=== PATIENT | male | born 1955 | race Caucasian/White ===

== ENCOUNTER 2022-02-22 11:48 | Inpatient (IN) | payer MEDICAID, SELFPAY ==
[2022-02-22] VITALS (13 sets, daily range): BP systolic 99–157; BP diastolic 42–75; PULSE 84–105; RESP 16–24; TEMP 36.4–37; O2SAT 95–100; BMI 23.8
--- NOTE | 2022-02-22 | ECG_ITS ---
Test Reason : CHEST PAIN Blood Pressure : / mmHG Vent. Rate : 090 BPM Atrial Rate : 090 BPM P-R Int : 150 ms QRS Dur : 090 ms QT Int : 364 ms P-R-T Axes : 082 050 053 degrees QTc Int : 445 ms Normal sinus rhythm with sinus arrhythmia ST & T wave abnormality, consider lateral ischemia Abnormal ECG When compared with ECG of 22-FEB-2022 17:19, Premature atrial complexes are no longer Present Referred By: Benita Ceja Electronically Signed By:ROULA GRIDER MD
--- NOTE | ~2022-02-22 | XR_ITS ---
EXAMINATION: XR CHEST CLINICAL INFORMATION: Leukocytosis. COMPARISON: Chest x-ray 02/23/2018 TECHNIQUE: 2 views of the chest were obtained. FINDINGS: Heart size enlarged. Vascular calcifications of aorta. Vascular stent over the superior mediastinum. No acute airspace disease. No pulmonary vascular congestion, pleural effusion or pneumothorax. XR/XR chest 2V IMPRESSION: No acute abnormality of chest.
--- NOTE | ~2022-02-22 | CT_ITS ---
EXAMINATION: CT HEAD WITHOUT CONTRAST CLINICAL INFORMATION: Altered mental status. COMPARISON: Head CT scan dated 11/26/2017. TECHNIQUE: Contiguous axial imaging was performed from the skull base to vertex without intravenous administration of contrast. Coronal and sagittal reformatted images were obtained. This CT examination was performed using dose optimization techniques as appropriate, variously including the following: *Automated exposure control *Adjustment of mA and/or kV according to patient size (this includes techniques or standardized protocols for targeted exams where dose is matched to indication/reason for exam; i.e. extremities or head) *Use of iterative reconstruction technique DLP: 635 mGy-cm FINDINGS: There is mild to moderate widening of the cortical sulci and associated ventriculomegaly. The lateral ventricles are symmetrical. The third and fourth ventricles are in their normal midline position. The basilar and prepontine cisterns are unremarkable. There is no acute intra or extracerebral abnormality. There is no mass effect or midline shift. Sections through the bony calvarium are unremarkable. The orbits are intact. The paranasal sinuses show mild to moderate mucosal thickening in the left sphenoid sinus. No air-fluid levels. The mastoid air cells are clear. CT/CT head/brain wo con IMPRESSION: 1. No acute intracranial pathology. 2. Mild to moderate mucosal thickening in the left sphenoid sinus was not seen previously.
--- NOTE | 2022-02-22 12:00 | ED_ITS ---
HPI - General Adult General Chief complaint: Altered Mental Status Stated complaint: LEG PAIN PER EMS FROM DIALYSIS Time Seen by Provider: 02/22/22 12:00 Source: EMS Mode of arrival: EMS Limitations: language barrier and altered mental status History of Present Illness HPI narrative: Patient is a 66 year old male presenting to the emergency department today, via EMS, with an altered mental status. EMS states that the patient had just arrived to dialysis when the dialysis staff stated the patient was acting altered. The patient did not undergo dialysis. Patient is Tristanian speaking only and is not r esponding appropriately to verbal stimuli consistently. At times he is able to answer questions but at other times was unable to. Patient is able to follow commands. Patient's paperwork from his care facility lists dementia, parkinsons, CAD, ESRD, and plavix use in his history. Additionally, the patient has a DNR. Related Data Allergies Allergy/AdvReac Type Severity Reaction Status Date / Time Penicillins [PCN] Allergy Intermediate ITCHING Verified 02/22/22 12:14 Review of Systems Constitutional: Constitutional: Reports no additional constitutional complaints, Denies chills, Denies fever(s) and Denies night sweats Eyes: Eyes: Reports no additional eye complaints, Denies blurry vision, Denies change in vision, Denies diplopia, Denies eye discharge, Denies loss of vision and Denies eye pain ENT: Denies dizziness Cardiovascular: Cardiovascular: Reports no additional cardiovascular compl aints, Denies chest pain, Denies lightheadedness, Denies Loss of Consciousness and Denies dyspnea Respiratory: Respiratory: Reports no additional respiratory complaints and Denies dyspnea Gastrointestinal: Gastrointestinal: Reports no additional gastrointestinal complaints, Denies abdominal pain, Denies melena, Denies hematochezia, Denies change in bowel habits and Denies change in stool character Genitourinary: Genitourinary: Reports no additional male genitourinary complaints, Denies hematuria, Denies oliguria, Denies difficulty urinating, Denies dysuria, Denies urinary frequency, Denies urinary hesitancy, Denies urinary incontinence and Denies urinary urgency Musculoskeletal: Musculoskeletal: Reports no additional musculoskeletal complaints, Denies numbness and Denies tingling Neurologic: Denies dizziness, Denies loss of vision, Denies numbness and Denies tingling Comments: altered mental status Psychiatric: Psychiatric: Reports no additional psychiatric complaints Endocrine: Endocrine: Reports no additional endocrine complaints Hematologic/Lymphatic: Hematologic/Lymphatic: Reports no additional hematologic/lymphatic complaints Allergic/Immunologic: Allergic/Immunologic: Reports no additional allergic/immunologic complaints FORMERLY [facility], [facility] Past Medical History Attestation statement: The following information was validated with the patient. Source: old records reviewed Social History Social History Advance Directives: No Advance Directives Information Provided: Yes Physical Exam ED Vital Signs: Vital Signs - 24 hr 02/22/22 12:15 02/22/22 12:36 02/22/22 13:43 Temperature 97.8 F Pulse Rate 96 105 H 97 Respiratory Rate 18 20 17 Blood Pressure 135/59 L 144/64 H 139/71 Pulse Oximetry 100 100 100 02/22/22 16:46 02/22/22 17:01 Temperature 97.9 F 97.5 F Pulse Rate 94 92 Respiratory Rate 18 16 Blood Pressure 134/54 L 135/55 L Pulse Oximetry BMI result Body Mass Index 23.8 Const General: cooperative, no acute distress, alert and awake Nutritional Appearance: well nourished Orientation/consciousness: oriented to person (intermittently) and oriented to place (intermittently) Limitations: no limitations HENMT Head: Yes normal to inspection and Yes atraumatic Ears: hearing grossly normal bilaterally and external ears normal General nose exam: Normal external nose present, no nasal discharge noted and no epistaxis Face and sinus: Yes normal facial exam, No abrasion and No laceration Mouth: Normal oral and palatal mucosa present, no drooling and no muffled voice Eyes General: appearance normal, both eyes and all related structures Periorbital: periorbital findings normal Eyelids: Yes eyelids normal Conjunctivae: conjunctivae normal Pupils: Equal, round and reactive pupils present EOM: EOMs intact bilaterally Neck Neck: Yes normal visual inspection, Yes full ROM and Yes no lymphadenopathy Chest Chest palpation & inspection: normal inspection of the chest Resp Effort & Inspection: normal respiratory effort and able to speak in complete sentences Auscultation: clear to auscultation bilaterally GI Inspection: Yes normal to inspection Skin General skin exam: pallor Neuro General: oriented to person (intermittently), oriented to place (intermittently) and moves all extremities Cranial nerves: Yes Equal, round and reactive pupils present Cognition (Neuro): abnormal cognition (intermittently normal) Motor exam (neuro): 5/5 motor strength present throughout Sensory Exam: Normal double simultaneous stimulation for sensation Coordination: [id number] test normal Pupils: Normal pupillary reactivity/response: bilateral Extrem Other: dialysis fistula present in left arm General: Yes full ROM and Yes capillary refill normal Psych Appearance: grossly normal Mental Status: mental status grossly normal Affect: normal affect Attitude: cooperative Thought process: Normal thought process present Thought content: Normal thought content present Insight: Good insight present (Psych) NIH Stroke Scale Internal: Initial- Upon Arrival Time: 12:00 Level of Consciousness: Not Alert; but arousable by minor stimulation Level of Consciousness Questions: Answers both questions correctly (intermittently) Level of Consciousness Commands: Performs both tasks correctly Best Gaze: Normal Visual: No visual loss Facial Palsy: Normal Motor Arm (Right): No drift Motor Arm (Left): No drift Motor Leg (Right): No drift Motor Leg (Left): No drift Limb Ataxia: Absent Sensory: Normal Best Language: No aphasia Dysarthia: Normal Extinction and Inattention: No abnormality Score: 1 Course Consultations Consultation #1: Spoke to Dr. Hannon, the signal apprentice healthcare network consultant, who recommended the patient be admitted medically and started on nitro paste. He states he believes the patient is suffering myocardial ischemia however, he believes this is secondary to medical reasons/demand. Time: 16:17 Consultation #2: Spoke to Dr. Meza, the GI provider healthcare network consultant, who recommended the patient be admitted and cleared by Cardiology/Medical before she proceeds with an endoscope over the next few days. Time: 16:30 Consultation #3: Spoke to Dr. King who agreed to admission. Time: 17:05 Medical Decision Making [facility] Narrative Medical decision making narrative: Patient is a 66 year old male presenting to the emergency department today with a transient altered mental status. Patient's physical exam showed an individual who was tranisently alert and oriented and pale. Patient's blood work showed a HGB of 5.9, elevated WBC count of 17.4, HCT of 18.9, creatinine of 8.48, BUN of 81, initial lactate of 3.8, 3 hour repeat lactate of 2.9, initial trop of 2762.2, 3 hour repeat troponin of 3990.8, and elevated AST at 41 and elevated alk phos of 149. Patient's urine is pending. Patient's EKG showed ST depression in V4, V5, and V6 with no previous EKG to compare it to. Patient's head CT showed no acute process. Patient's hemeoccult blood was positive. I spoke to the signal apprentice healthcare network consultant, Dr. Hannon, who recommended the patient be admitted medically with nitro paste. Dr. eMza recommended the patient be cleared by cardiology and medically before she performs an endoscope over the next few days. Additionally, she recommends the patient be placed on a PPI drip. Patient was transfused 1 unit of blood. Patient was placed on nitro drip and a protonix drip. I spoke to Dr. Kign who agreed to hospital admission. Patient will need to be dialyzed on an inpatient basis. Differential Diagnosis Differential Diagnosis: AMS, anemia, ESRD, NSTEMI Medical Records Medical records reviewed: Yes I reviewed the patient's medical records. Lab Data Lab results reviewed: Yes I reviewed the patient's lab results. Result diagrams: 02/22/22 12:07 02/22/22 12:07 Labs: Lab Results 02/22/22 02/22/22 02/22/22 Range/Units 12:07 12:07 12:07 WBC 17.4 H (4.8-10.8) X10*3/uL RBC 1.88 L (4.60-5.80) X10*6/uL Hgb 5.9 L* (14.0-18.0) g/dl Hct 18.9 L* (42.0-52.0) % MCV 100.5 H (80.0-98.0) fL MCH 31.4 (27.0-33.0) pg MCHC 31.2 (31.0-36.0) g/dl RDW 15.5 (11.0-16.0) % Plt Count 201 (160-400) X10*3/uL MPV 11.2 (9.4-12.4) fL Immature Gran % (Auto) 0.7 H (0.0-0.4) % Neut % (Auto) 75.7 H (45-73) % Lymph % (Auto) 12.0 L (20-40) % [place] % (Auto) 10.4 (2-11) % Eos % (Auto) 0.9 (0-4) % Baso % (Auto) 0.3 (0-2) % Lymph # (Auto) 2.1 (1.2-4.9) X10*3/uL [place] # (Auto) 1.8 H (0.1-1.2) X10*3/uL Eos # (Auto) 0.2 (0.0-0.4) X10*3/uL Baso # (Auto) 0.1 (0.0-0.2) X10*3/uL Abs Immat Gran (auto) 0.12 H (0.00-0.03) X10*3/uL Absolute Neuts (auto) 13.2 H (2.0-8.3) x10*3/uL Absolute Nucleated RBC 0.000 (0.0-0.012) X10*3/uL Nucleated RBC % (auto) 0.0 (0.0-0.2) /100WBC Smear Tech's Comments VERIFIED PT (9.9-13.0) SEC INR (0.9-1.1) APTT (24.1-38.0) SEC VBG pH (7.32-7.43) VBG pCO2 mmHg VBG pO2 mmHg VBG HCO3 (22-26) mmol/L VBG O2 Saturation % VBG Base Excess mmol/L Sodium 136 (135-145) mmol/L Potassium 4.8 (3.3-5.1) mmol/L Chloride 94 L (96-108) mmol/L Carbon Dioxide 22 (22-29) mmol/L Anion Gap 25 H (12-20) BUN 81 H (9-16) mg/dL Creatinine 8.48 H* (0.5-1.4) mg/dL Estim Creat Clear Calc 6.7 Estimated GFR 6 POC Glucose (60-115) mg/dL Random Glucose 198 H (60-115) mg/dL Lactic Acid (0.5-2.0) mmol/L Lactic Acid F/U @ 2Hr (0.5-2.0) mmol/L Calcium 9.5 (8.4-10.2) mg/dL Total Bilirubin 0.7 (0.0-1.0) mg/dL AST 41 H (5-37) U/L ALT 27 (0-40) U/L Alkaline Phosphatase 149 H (39-117) U/L Ammonia (13-55) umol/L Troponin I High Sens 2762.2 H* (<3.5-35.0) ng/L Total Protein 7.3 (6.5-8.0) g/dL Albumin 4.0 (3.5-5.0) g/dL Stool Occult Blood (NEGATIVE) COVID-19 (AMANDA) (Negative) COVID-19 Clin Com Influenza Type A (SOL) (Negative) Influenza Type B (SOL) (Negative) Influenza A & B Note Blood Type Antibody Screen Crossmatch 02/22/22 02/22/22 02/22/22 Range/Units 12:07 12:07 12:08 WBC (4.8-10.8) X10*3/uL RBC (4.60-5.80) X10*6/uL Hgb (14.0-18.0) g/dl Hct (42.0-52.0) % MCV (80.0-98.0) fL MCH (27.0-33.0) pg MCHC (31.0-36.0) g/dl RDW (11.0-16.0) % Plt Count (160-400) X10*3/uL MPV (9.4-12.4) fL Immature Gran % (Auto) (0.0-0.4) % Neut % (Auto) (45-73) % Lymph % (Auto) (20-40) % [place] % (Auto) (2-11) % Eos % (Auto) (0-4) % Baso % (Auto) (0-2) % Lymph # (Auto) (1.2-4.9) X10*3/uL [place] # (Auto) (0.1-1.2) X10*3/uL Eos # (Auto) (0.0-0.4) X10*3/uL Baso # (Auto) (0.0-0.2) X10*3/uL Abs Immat Gran (auto) (0.00-0.03) X10*3/uL Absolute Neuts (auto) (2.0-8.3) x10*3/uL Absolute Nucleated RBC (0.0-0.012) X10*3/uL Nucleated RBC % (auto) (0.0-0.2) /100WBC Smear Tech's Comments PT (9.9-13.0) SEC INR (0.9-1.1) APTT (24.1-38.0) SEC VBG pH (7.32-7.43) VBG pCO2 mmHg VBG pO2 mmHg VBG HCO3 (22-26) mmol/L VBG O2 Saturation % VBG Base Excess mmol/L Sodium (135-145) mmol/L Potassium (3.3-5.1) mmol/L Chloride (96-108) mmol/L Carbon Dioxide (22-29) mmol/L Anion Gap (12-20) BUN (9-16) mg/dL Creatinine (0.5-1.4) mg/dL Estim Creat Clear Calc Estimated GFR POC Glucose 194 H (60-115) mg/dL Random Glucose (60-115) mg/dL Lactic Acid (0.5-2.0) mmol/L Lactic Acid F/U @ 2Hr (0.5-2.0) mmol/L Calcium (8.4-10.2) mg/dL Total Bilirubin (0.0-1.0) mg/dL AST (5-37) U/L ALT (0-40) U/L Alkaline Phosphatase (39-117) U/L Ammonia (13-55) umol/L Troponin I High Sens (<3.5-35.0) ng/L Total Protein (6.5-8.0) g/dL Albumin (3.5-5.0) g/dL Stool Occult Blood (NEGATIVE) COVID-19 (AMANDA) Negative (Negative) COVID-19 Clin Com See Note Influenza Type A (SOL) Negative (Negative) Influenza Type B (SOL) Negative (Negative) Influenza A & B Note See Note Blood Type Antibody Screen Crossmatch 02/22/22 02/22/22 02/22/22 Range/Units 12:11 12:14 15:35 WBC (4.8-10.8) X10*3/uL RBC (4.60-5.80) X10*6/uL Hgb (14.0-18.0) g/dl Hct (42.0-52.0) % MCV (80.0-98.0) fL MCH (27.0-33.0) pg MCHC (31.0-36.0) g/dl RDW (11.0-16.0) % Plt Count (160-400) X10*3/uL MPV (9.4-12.4) fL Immature Gran % (Auto) (0.0-0.4) % Neut % (Auto) (45-73) % Lymph % (Auto) (20-40) % [place] % (Auto) (2-11) % Eos % (Auto) (0-4) % Baso % (Auto) (0-2) % Lymph # (Auto) (1.2-4.9) X10*3/uL [place] # (Auto) (0.1-1.2) X10*3/uL Eos # (Auto) (0.0-0.4) X10*3/uL Baso # (Auto) (0.0-0.2) X10*3/uL Abs Immat Gran (auto) (0.00-0.03) X10*3/uL Absolute Neuts (auto) (2.0-8.3) x10*3/uL Absolute Nucleated RBC (0.0-0.012) X10*3/uL Nucleated RBC % (auto) (0.0-0.2) /100WBC Smear Tech's Comments PT 10.7 (9.9-13.0) SEC INR 0.9 (0.9-1.1) APTT 33.5 (24.1-38.0) SEC VBG pH 7.30 L (7.32-7.43) VBG pCO2 57 mmHg VBG pO2 70 mmHg VBG HCO3 28 H (22-26) mmol/L VBG O2 Saturation 88.0 % VBG Base Excess 1.7 mmol/L Sodium (135-145) mmol/L Potassium (3.3-5.1) mmol/L Chloride (96-108) mmol/L Carbon Dioxide (22-29) mmol/L Anion Gap (12-20) BUN (9-16) mg/dL Creatinine (0.5-1.4) mg/dL Estim Creat Clear Calc Estimated GFR POC Glucose (60-115) mg/dL Random Glucose (60-115) mg/dL Lactic Acid 3.8 H* (0.5-2.0) mmol/L Lactic Acid F/U @ 2Hr (0.5-2.0) mmol/L Calcium (8.4-10.2) mg/dL Total Bilirubin (0.0-1.0) mg/dL AST (5-37) U/L ALT (0-40) U/L Alkaline Phosphatase (39-117) U/L Ammonia (13-55) umol/L Troponin I High Sens (<3.5-35.0) ng/L Total Protein (6.5-8.0) g/dL Albumin (3.5-5.0) g/dL Stool Occult Blood (NEGATIVE) COVID-19 (AMANDA) (Negative) COVID-19 Clin Com Influenza Type A (SOL) (Negative) Influenza Type B (SOL) (Negative) Influenza A & B Note Blood Type Antibody Screen Crossmatch 02/22/22 02/22/22 02/22/22 Range/Units 15:35 15:35 15:35 WBC (4.8-10.8) X10*3/uL RBC (4.60-5.80) X10*6/uL Hgb (14.0-18.0) g/dl Hct (42.0-52.0) % MCV (80.0-98.0) fL MCH (27.0-33.0) pg MCHC (31.0-36.0) g/dl RDW (11.0-16.0) % Plt Count (160-400) X10*3/uL MPV (9.4-12.4) fL Immature Gran % (Auto) (0.0-0.4) % Neut % (Auto) (45-73) % Lymph % (Auto) (20-40) % [place] % (Auto) (2-11) % Eos % (Auto) (0-4) % Baso % (Auto) (0-2) % Lymph # (Auto) (1.2-4.9) X10*3/uL [place] # (Auto) (0.1-1.2) X10*3/uL Eos # (Auto) (0.0-0.4) X10*3/uL Baso # (Auto) (0.0-0.2) X10*3/uL Abs Immat Gran (auto) (0.00-0.03) X10*3/uL Absolute Neuts (auto) (2.0-8.3) x10*3/uL Absolute Nucleated RBC (0.0-0.012) X10*3/uL Nucleated RBC % (auto) (0.0-0.2) /100WBC Smear Tech's Comments PT (9.9-13.0) SEC INR (0.9-1.1) APTT (24.1-38.0) SEC VBG pH (7.32-7.43) VBG pCO2 mmHg VBG pO2 mmHg VBG HCO3 (22-26) mmol/L VBG O2 Saturation % VBG Base Excess mmol/L Sodium (135-145) mmol/L Potassium (3.3-5.1) mmol/L Chloride (96-108) mmol/L Carbon Dioxide (22-29) mmol/L Anion Gap (12-20) BUN (9-16) mg/dL Creatinine (0.5-1.4) mg/dL Estim Creat Clear Calc Estimated GFR POC Glucose (60-115) mg/dL Random Glucose (60-115) mg/dL Lactic Acid (0.5-2.0) mmol/L Lactic Acid F/U @ 2Hr (0.5-2.0) mmol/L Calcium (8.4-10.2) mg/dL Total Bilirubin (0.0-1.0) mg/dL AST (5-37) U/L ALT (0-40) U/L Alkaline Phosphatase (39-117) U/L Ammonia 28 (13-55) umol/L Troponin I High Sens 3990.8 H* (<3.5-35.0) ng/L Total Protein (6.5-8.0) g/dL Albumin (3.5-5.0) g/dL Stool Occult Blood (NEGATIVE) COVID-19 (AMANDA) (Negative) COVID-19 Clin Com Influenza Type A (SOL) (Negative) Influenza Type B (SOL) (Negative) Influenza A & B Note Blood Type O Positive Antibody Screen NEGATIVE Crossmatch See Detail 02/22/22 02/22/22 Range/Units 15:35 15:50 WBC (4.8-10.8) X10*3/uL RBC (4.60-5.80) X10*6/uL Hgb (14.0-18.0) g/dl Hct (42.0-52.0) % MCV (80.0-98.0) fL MCH (27.0-33.0) pg MCHC (31.0-36.0) g/dl RDW (11.0-16.0) % Plt Count (160-400) X10*3/uL MPV (9.4-12.4) fL Immature Gran % (Auto) (0.0-0.4) % Neut % (Auto) (45-73) % Lymph % (Auto) (20-40) % [place] % (Auto) (2-11) % Eos % (Auto) (0-4) % Baso % (Auto) (0-2) % Lymph # (Auto) (1.2-4.9) X10*3/uL [place] # (Auto) (0.1-1.2) X10*3/uL Eos # (Auto) (0.0-0.4) X10*3/uL Baso # (Auto) (0.0-0.2) X10*3/uL Abs Immat Gran (auto) (0.00-0.03) X10*3/uL Absolute Neuts (auto) (2.0-8.3) x10*3/uL Absolute Nucleated RBC (0.0-0.012) X10*3/uL Nucleated RBC % (auto) (0.0-0.2) /100WBC Smear Tech's Comments PT (9.9-13.0) SEC INR (0.9-1.1) APTT (24.1-38.0) SEC VBG pH (7.32-7.43) VBG pCO2 mmHg VBG pO2 mmHg VBG HCO3 (22-26) mmol/L VBG O2 Saturation % VBG Base Excess mmol/L Sodium (135-145) mmol/L Potassium (3.3-5.1) mmol/L Chloride (96-108) mmol/L Carbon Dioxide (22-29) mmol/L Anion Gap (12-20) BUN (9-16) mg/dL Creatinine (0.5-1.4) mg/dL Estim Creat Clear Calc Estimated GFR POC Glucose (60-115) mg/dL Random Glucose (60-115) mg/dL Lactic Acid (0.5-2.0) mmol/L Lactic Acid F/U @ 2Hr 2.9 H* (0.5-2.0) mmol/L Calcium (8.4-10.2) mg/dL Total Bilirubin (0.0-1.0) mg/dL AST (5-37) U/L ALT (0-40) U/L Alkaline Phosphatase (39-117) U/L Ammonia (13-55) umol/L Troponin I High Sens (<3.5-35.0) ng/L Total Protein (6.5-8.0) g/dL Albumin (3.5-5.0) g/dL Stool Occult Blood POSITIVE (NEGATIVE) COVID-19 (AMANDA) (Negative) COVID-19 Clin Com Influenza Type A (SOL) (Negative) Influenza Type B (SOL) (Negative) Influenza A & B Note Blood Type Antibody Screen Crossmatch Imaging Data CT scan - head: Attestation: I personally reviewed and interpreted this imaging study as follows: Radiologist's impression: EXAMINATION: CT HEAD WITHOUT CONTRAST CLINICAL INFORMATION: Altered mental status.? COMPARISON: Head CT scan dated 11/26/2017. TECHNIQUE: Contiguous axial imaging was performed from the skull base to vertex without intravenous administration of contrast. Coronal and sagittal reformatted images were obtained. This CT examination was performed using dose optimization techniques as appropriate, variously including the following: *Automated exposure control *Adjustment of mA and/or kV according to patient size (this includes techniques or standardized protocols for targeted exams where dose is matched to indication/reason for exam; i.e. extremities or head) *Use of iterative reconstruction technique DLP: 635 mGy-cm FINDINGS: There is mild to moderate widening of the cortical sulci and associated ventriculomegaly. The lateral ventricles are symmetrical. The third and fourth ventricles are in their normal midline position. The basilar and prepontine cisterns are unremarkable. There is no acute intra or extracerebral abnormality. There is no mass effect or midline shift. Sections through the bony calvarium are unremarkable. The orbits are intact. The paranasal sinuses show mild to moderate mucosal thickening in the left sphenoid sinus. No air-fluid levels. The mastoid air cells are clear. CT/CT head/brain wo con IMPRESSION: 1. No acute intracranial pathology. 2. Mild to moderate mucosal thickening in the left sphenoid sinus was not seen previously. Dictated By: Sky Ellis MD Signed By: Electronically signed by Sky Ellis MD 02/22/22 8749 ECG Data Attestation: I personally reviewed and interpreted this ECG as follows: Prior ECG tracings: not available for review Interpretation: Vent. Rate: 095 BPM ? ? Atrial Rate: 095 BPM P-R Int: 116 ms? QRS Dur: 096 ms QT Int: 376 ms ? ? ? P-R-T Axes: 078 050 113 degrees QTc Int: 472 ms ? Sinus rhythm with marked sinus arrhythmia ST & T wave abnormality, consider lateral ischemia Prolonged QT Abnormal ECG 02/22/22 4764 Discharge Plan Discharge Clinical Impression: ESRD (end stage renal disease), Anemia, Acute upper GI bleed, Elevated troponin Patient Disposition: Admitted As Inpatient Print Language: Tristanian
--- NOTE | 2022-02-22 12:00 | ECG_ITS ---
Test Reason : AMS Blood Pressure : / mmHG Vent. Rate : 095 BPM Atrial Rate : 095 BPM P-R Int : 116 ms QRS Dur : 096 ms QT Int : 376 ms P-R-T Axes : 078 050 113 degrees QTc Int : 472 ms Sinus rhythm with Premature atrial complexes ST & T wave abnormality, consider lateral ischemia Prolonged QT Abnormal ECG When compared to the previous EKG of ST more depressed Lateral leads Referred By: Conchis Peguero Electronically Signed By:ROULA GRIDER MD
[2022-02-22 12:16] LABS: Basophils Absolute Auto 0.1 X10*3/uL (0.0-0.2); Basophils Percent Auto 0.3 % (0-2); Eosinophils Absolute Auto 0.2 X10*3/uL (0.0-0.4); Eosinophils Percent Auto 0.9 % (0-4); Imm Gran Abs Auto 0.12 X10*3/uL (0.00-0.03); Imm Gran Pct Auto 0.7 % (0.0-0.4); Lymphocytes Absolute Auto 2.1 X10*3/uL (1.2-4.9); MANUAL DIFF FLAG SCAN; Mean Corpuscular HGB Conc 31.2 g/dl (31.0-36.0); Mean Corpuscular Hemoglobin 31.4 pg (27.0-33.0); Mean Corpuscular Volume 100.5 fL (80.0-98.0); Mean Platelet Volume 11.2 fL (9.4-12.4); Monocytes Absolute Auto 1.8 X10*3/uL (0.1-1.2); Monocytes Percent Auto 10.4 % (2-11); Neutrophils Absolute Auto 13.2 x10*3/uL (2.0-8.3); Neutrophils Percent Auto 75.7 % (45-73); Platelet Count 201 X10*3/uL (160-400); Red Blood Count 1.88 X10*6/uL (4.60-5.80); Red Cell Distribution Width 15.5 % (11.0-16.0); SCAN SMEAR FLAG 1; White Blood Count 17.4 X10*3/uL (4.8-10.8)
[2022-02-22 12:17] LABS: VBG Base Excess 1.7 mmol/L; VBG HCO3 28 mmol/L (22-26); VBG pCO2 57 mmHg; VBG pO2 70 mmHg
[2022-02-22 12:18] LABS: Hemoglobin 5.9 g/dl (14.0-18.0)
[2022-02-22 12:19] LABS: Hematocrit 18.9 % (42.0-52.0); Venous Blood Gas Refer to POC result
[2022-02-22 12:25] LABS: Glucose, Whole Blood 194 mg/dL (60-115)
[2022-02-22 12:32] LABS: Lactic Acid 3.8 mmol/L (0.5-2.0)
[2022-02-22 12:34] LABS: SLIDE REVIEW VERIFIED
[2022-02-22 12:37] LABS: Alanine Aminotransferase 27 U/L (0-40); Alkaline Phosphatase 149 U/L (39-117); Anion Gap 25 (12-20); Aspartate Amino Transferase 41 U/L (5-37); Bilirubin Total 0.7 mg/dL (0.0-1.0); Blood Urea Nitrogen 81 mg/dL (9-16); Calcium 9.5 mg/dL (8.4-10.2); Carbon Dioxide 22 mmol/L (22-29); Chloride 94 mmol/L (96-108); Glucose Random 198 mg/dL (60-115); Potassium 4.8 mmol/L (3.3-5.1); Sodium 136 mmol/L (135-145); Total Protein 7.3 g/dL (6.5-8.0)
[2022-02-22 12:40] LABS: Influenza A Negative (Negative); Influenza B2 Negative (Negative)
[2022-02-22 12:41] LABS: COVID-19 Test Negative (Negative); Creatinine Clr Calc Pharmacy 6.7; Estimated Glomerular Filt Rate 6; IDNOW Serial# 16C4AD1C
[2022-02-22 14:17] LABS: Reflex Lactate? Lactic Acid Added
[2022-02-22 15:49] LABS: INTERNATIONAL NORM RATIO 0.9 (0.9-1.1); Prothrombin Time 10.7 SEC (9.9-13.0)
[2022-02-22 15:50] LABS: Ammonia 28 umol/L (13-55)
[2022-02-22 15:52] LABS: Partial Thromboplastin Time 33.5 SEC (24.1-38.0)
[2022-02-22 15:56] LABS: ~Lactic Acid-LAB USE ONLY 2.9 mmol/L (0.5-2.0)
[2022-02-22 15:56] LABS: OBS Int Ctl Valid YES; OBS1 POSITIVE (NEGATIVE)
--- NOTE | 2022-02-22 17:20 | ECG_ITS ---
Test Reason : CP Blood Pressure : / mmHG Vent. Rate : 094 BPM Atrial Rate : 094 BPM P-R Int : 116 ms QRS Dur : 092 ms QT Int : 372 ms P-R-T Axes : 059 033 013 degrees QTc Int : 465 ms Sinus rhythm with Premature atrial complexes ST & T wave abnormality, consider lateral ischemia Prolonged QT Abnormal ECG When compared with ECG of 22-FEB-2022 11:59, ST less depressed in Lateral leads T wave inversion less evident in Lateral leads Referred By: Generic ED Physician Electronically Signed By:ROULA GRIDER MD
[2022-02-22] MEDS: Nitroglycerin 2 % Oint 1 GM Packet 0.5 INCH TRANSDERMA (17:27)
--- NOTE | 2022-02-22 17:29 | PC.NURSE ---
pt had made a vague report of chest discomfort which he localized to r shoulder area. pt indicated this via his son but is unable to give specifics related to this pain. Pt has no rash or urticaria, ls remain clear and = and he is in n[facility] on led 2 pac [place] made aware, repeat ekg has been reviewed and nitro has been placed as ordered.
[2022-02-22 17:38] LABS: Reflex Lactate? 2 Y
--- NOTE | 2022-02-22 17:51 | PM.GICN ---
History of Present Illness Data of Consult Service Date: 02/22/22 Requesting physician: Conchis Peguero Primary Care Provider: Unknown Physician HPI Reason for consult: severe anemia, heme positive stools 66 year old Filipino-speaking male with dementia, parkinsons, CAD, ESRD on HD, and plavix use sent to [facility] ER, via EMS, with an altered mental status. EMS stated that the patient had just arrived to dialysis when the dialysis staff stated the patient was acting altered. The patient did not undergo dialysis. Patient is Filipino speaking only and was not responding appropriately to verbal stimuli consistently. Per ER staff pt is able to answer questions intermittently and was able to follow commands. Patient is a DNR. Unable to obtain a meaningful hx from the patient since he has dementia Lab in the ER showed H & H of 5.9 and 18.9 (decreased from 11.3 & 34 in 2019) IMAGING STUDIES: 02/22/[address] SCAN SHOWED: 1. No acute intracranial pathology. 2. Mild to moderate mucosal thickening in the left sphenoid sinus was not seen previously. PAST EGD/COLONOSCOPY: May 2015 PATIENT WAS HOSPITALIZED WITH ANEMIA AND HAD AN UPPER ENDOSCOPY AND COLONOSCOPY BY DR. DUMONT: EGD showed a deep antral ulcer Colonoscopy was normal Review of Systems Constitutional: Constitutional: Reports no additional constitutional complaints, Denies chills, Denies fever(s) and Denies night sweats Eyes: Eyes: Reports no additional eye complaints, Denies blurry vision, Denies change in vision, Denies diplopia, Denies eye discharge, Denies loss of vision and Denies eye pain ENT: Denies dizziness Cardiovascular: Cardiovascular: Reports no additional cardiovascular complaints, Denies chest pain, Denies lightheadedness, Denies Loss of Consciousness and Denies dyspnea Respiratory: Respiratory: Reports no additional respiratory complaints and Denies dyspnea Gastrointestinal: Gastrointestinal: Reports no additional gastrointestinal complaints, Denies abdominal pain, Denies melena, Denies hematochezia, Denies change in bowel habits and Denies change in stool character Genitourinary: Genitourinary: Reports no additional male genitourinary complaints, Denies hematuria, Denies oliguria, Denies difficulty urinating, Denies dysuria, Denies urinary frequency, Denies urinary hesitancy, Denies urinary incontinence and Denies urinary urgency Musculoskeletal: Musculoskeletal: Reports no additional musculoskeletal complaints, Denies numbness and Denies tingling Neurologic: Denies dizziness, Denies loss of vision, Denies numbness and Denies tingling Comments: altered mental status Psychiatric: Psychiatric: Reports no additional psychiatric complaints Endocrine: Endocrine: Reports no additional endocrine complaints Hematologic/Lymphatic: Hematologic/Lymphatic: Reports no additional hematologic/lymphatic complaints Allergic/Immunologic: Allergic/Immunologic: Reports no additional allergic/immunologic complaints [facility] Social History Social History Household Members: Unknown / Unable to assess Housing: Unknown / Unable to assess Do you presently have visiting nurse or other home services: No (unknown) Unable to assess alcohol history related to: Unknown Alcohol intake: former Patient Tobacco Use Status: Former Tobacco user Current occupational status: disabled Meds Allergies Allergy/AdvReac Type Severity Reaction Status Date / Time Penicillins [PCN] Allergy Intermediate ITCHING Verified 02/22/22 12:14 Active Medications: Current Medications Pantoprazole Sodium 80 mg/ (Sodium Chloride) 100 mls @ 10 mls/hr IV .Q10H [facility] Pharmacy Consult (Consult Rx Perform Med Rec) 1 each MISCELLANE ONCE PRN PRN Reason: Consult order Home Medications Medication Instructions Recorded Confirmed Last Taken Type atorvastatin 80 mg tablet 80 mg PO BEDTIME 02/22/22 02/22/22 Unknown History bisacodyl 5 mg tablet,delayed 1 tab PO DAILY PRN 02/22/22 02/22/22 Unknown History release (Dulcolax (bisacodyl)) cholecalciferol (vitamin D3) 50 50 mcg PO DAILY 02/22/22 02/22/22 Unknown History mcg (2,000 unit) tablet insulin glargine 100 unit/mL (3 10 unit SUBCUT BEDTIME 02/22/22 02/22/22 Unknown History mL) subcutaneous pen (Lantus Solostar U-100 Insulin) insulin lispro 100 unit/mL 1 sliding scale dose SUBCUT 02/22/22 02/22/22 Unknown History subcutaneous solution (Humalog USEASDIRECTD U-100 Insulin) isosorbide dinitrate 10 mg tablet 10 mg PO TID 02/22/22 02/22/22 Unknown History lactulose 10 gram/15 mL oral 30 ml PO BID 02/22/22 02/22/22 Unknown History solution (Enulose) paroxetine HCl 20 mg tablet (Paxil) 20 mg PO DAILY 02/22/22 02/22/22 Unknown History risperidone 0.25 mg tablet 0.25 mg PO BEDTIME 02/22/22 02/22/22 Unknown History sevelamer carbonate 2.4 gram oral 2.4 g PO TID 02/22/22 02/22/22 Unknown History powder packet (Renvela) trazodone 50 mg tablet 50 mg PO BEDTIME 02/22/22 02/22/22 Unknown History Physical Exam Vital Signs: Vital Signs: Last Vital Signs Temp 97.5 F 02/22/22 17:01 Pulse 94 02/22/22 17:31 Resp 16 02/22/22 17:31 BP 127/63 02/22/22 17:31 Pulse Ox 100 02/22/22 17:31 BMI result Body Mass Index 23.8 Const: General: no acute distress and ill appearing Nutritional Appearance: average body habitus Orientation/consciousness: patient oriented x3 Limitations: altered mental status and other limitations (dementia) HEENT: Head: Yes normal to inspection Ears: hearing grossly normal bilaterally Mouth: Normal oral and palatal mucosa present Eyes: Sclerae: sclerae normal Pupils: Equal, round and reactive pupils present Neck: Neck: Yes normal visual inspection Chest: Chest palpation & inspection: normal inspection of the chest Resp: Effort & Inspection: normal respiratory effort Auscultation: clear to auscultation bilaterally Cardio: Palpation: normal PMI Rate: regular rate Rhythm: regular rhythm Heart sounds: S1 normal heart sound present, S2 normal heart sound present and no murmurs GI: Palpation (GI): Soft to palpation, nontender and No hepatosplenomegaly present Auscultation: normal bowel sounds Rectal Exam - Male: Yes deferred Skin: General skin exam: no rashes or lesions noted Neuro: General: patient oriented x3, gait normal and moves all extremities Cranial nerves: Yes Equal, round and reactive pupils present Psych: Appearance: grossly normal Mental Status: mental status grossly normal Results Labs CBC & Chem 7: 02/26/22 06:27 02/26/22 06:27 Labs: Short CBC 02/22/22 Range/Units 12:07 WBC 17.4 H (4.8-10.8) X10*3/uL Hgb 5.9 L* (14.0-18.0) g/dl Hct 18.9 L* (42.0-52.0) % Plt Count 201 (160-400) X10*3/uL BMP 02/22/22 12:07 Sodium 136 Potassium 4.8 Chloride 94 L Carbon Dioxide 22 BUN 81 H Creatinine 8.48 H* Calcium 9.5 Liver Function 02/22/22 Range/Units 12:07 Total Bilirubin 0.7 (0.0-1.0) mg/dL AST 41 H (5-37) U/L ALT 27 (0-40) U/L Alkaline Phosphatase 149 H (39-117) U/L Albumin 4.0 (3.5-5.0) g/dL Assessment and Plan (1) Anemia: Status: Acute (2) Heme + stool: Status: Resolved Plan 66 year old Filipino-speaking male with dementia, parkinsons, CAD, ESRD on HD, and plavix use sent to [facility] ER, via EMS, with an altered mental status. Lab in the ER showed H & H of 5.9 and 18.9 (decreased from 11.3 & 34 in 2019) Pt is hemodynamically stable and per ER provider pt had brown heme positive stools suggestive of acute on chronic anemia without overt GI bleeding Past EGD in 2015 showed a deep gastric ulcer, Colonoscopy was normal Pt noted to have elevated Troponin levels and diagnosed with NSTEMI RECOMMENDATIONS: 1. Agree with transfusion of 1 U PRBC and IV PPI 2. Repeat CBC 2 hrs post transfusion and 2nd unit can be transfused during HD if Hct is < 25% 3. Needs hemodialysis 4. Pt is high risk for EGD given NSTEMI. Advise conservative treatment with PPI for suspected PUD given dementia and multiple medical issues and acute MD. ADDENDUM: Pt was seen by Dr Hannon, Cardiology, during hospitalization: NSTEMI secondary to severe anemia and other acute medical illness including UTI.? Most likely cause for his encephalopathy as including metabolic abnormality due to missing his dialysis.? He has no cardiac symptoms to report although this is very difficult to assess.? Definitely has evidence of EKG changes suggestive ischemia.? However given his inability to understand and significant cognitive dysfunction not sure if any further aggressive measures would be taken.? This needs to be discussed with his family.? I would treat him with medical therapy with metoprolol and statins.? Cannot be on aspirin anticoagulant due to his recent GI bleed and severe anemia.? Continue aggressive control of blood pressure.? Will prognosis an long run is poor given his significant medical issues and recent non-STEMI.? Will sign of the case.? Please feel free to contact us thank you Procedures Date of Service Date of Service: 02/22/22
[2022-02-22] MEDS: Pantoprazole Sodium 80 MG in 0.9 % Sodium Chloride 80 ML 10 MG IV (18:42)
--- NOTE | 2022-02-22 19:54 | PHA.MEDREC ---
Pharmacy Consult ? Medication Reconciliation Pharmacy has completed the medication reconciliation. INTAKE INCORRECT. PATIENT IS FROM [facility]. [phone]
[2022-02-22 22:19] LABS: ~Lactic Acid-LAB USE ONLY 2.2 mmol/L (0.5-2.0)
[2022-02-22 22:33] LABS: ABG Base Excess -2.8 mmol/L; ABG HCO3 21 mmol/L (22-26); ABG pCO2 35 mmHg (32-45); ABG pH 7.39 (7.35-7.45); ABG pO2 98 mmHg (83-108)
--- NOTE | 2022-02-22 22:47 | PC.NURSE ---
Patient's Troponin came back at 5968.3 which has increased from earlier. Hospitalist aware and has ordered an EKG
--- NOTE | 2022-02-22 22:54 | PM.IMHP ---
History of Present Illness Date of Service: 02/22/22 Chief Complaint: AMS 66-year-old male with a documented history of ESRD on dialysis, who comes in via EMS from dialysis with altered mentation. Patient is completely altered, somnolent, not responding to questions appropriately . according to family Who gave report to previous physician,patient's baseline is usually altered foot this is worse than usual. I am unable to get much history from patient himself. information gathered from ED notes. It appears that patient had just arrived to dialysis 1 dialysis staff stated the patient was acting altered. Patient did not receive dialysis and he was sent to the hospital. according to information obtained in the chart, patient has history of stomach ulcers. On arrival vitals patient found to have temp of 97.8 degrees, heart rate of 105, blood pressure stable. Labs are significant for WBC count of 17.4, hemoglobin of 5.9 hematocrit of 18.9, most recent in November were 11.3 and 34 respectively, prothrombin of 10.4, pH of 7.30, sodium 136, creatinine of 8.48, lactic acid of 3.8, troponin of 2760 to increase to 3990, UA that is positive for leukocyte Estrace and WBC head CT shows no acute intracranial pathology chest x-ray negative I am unable to obtain past medical history due to mental status Review of Systems Review of Systems: Yes Unobtainable due to mental condition and Unobtainable due to mental status PMFSH Social History Alcohol intake: former Patient Tobacco Use Status: Former Tobacco user Use of substances other than those prescribed or required for medical reasons: No Advance Directives: No Advance Directives Information Provided: Yes Meds Allergies Allergy/AdvReac Type Severity Reaction Status Date / Time Penicillins [PCN] Allergy Intermediate ITCHING Verified 02/22/22 12:14 Active Medications: Current Medications Acetaminophen (Acetaminophen 325 Mg Tablet) 650 mg PO Q6H PRN PRN Reason: Pain, Mild (Pain Scale 1-3) Docusate Sodium (Docusate Sodium 100 Mg Capsule) 100 mg PO DAILY PRN PRN Reason: Constipation Pantoprazole Sodium 80 mg/ (Sodium Chloride) 100 mls @ 10 mls/hr IV .Q10H [facility] Last Admin: 02/22/22 18:42 Dose: 8 mg/hr, 10 mls/hr Documented by: Ondansetron HCl (Ondansetron Hcl 4 Mg/2 Ml Vial) 4 mg IVPUSH Q8H PRN PRN Reason: Nausea and Vomiting Pantoprazole Sodium (Pantoprazole Sodium 40 Mg/10 Ml Vial) 40 mg IVPUSH BID@0630,1630 [facility] Pharmacy Consult (Consult Rx Perform Med Rec) 1 each MISCELLANE ONCE PRN PRN Reason: Consult order Sodium Chloride (0.9 % Sodium Chloride Flush 3 Ml Syringe) 3 ml IVFLUSH QSHIFT [facility] Home Medications Medication Instructions Recorded Confirmed Last Taken Type aspirin 81 mg chewable tablet 81 mg PO DAILY 02/22/22 02/22/22 Unknown History atorvastatin 80 mg tablet 80 mg PO BEDTIME 02/22/22 02/22/22 Unknown History bisacodyl 5 mg tablet,delayed 1 tab PO DAILY PRN 02/22/22 02/22/22 Unknown History release (Dulcolax (bisacodyl)) cholecalciferol (vitamin D3) 50 50 mcg PO DAILY 02/22/22 02/22/22 Unknown History mcg (2,000 unit) tablet clopidogrel 75 mg tablet 75 mg PO SUMOWEFR 02/22/22 02/22/22 Unknown History insulin glargine 100 unit/mL (3 10 unit SUBCUT BEDTIME 02/22/22 02/22/22 Unknown History mL) subcutaneous pen (Lantus Solostar U-100 Insulin) insulin lispro 100 unit/mL 1 sliding scale dose SUBCUT 02/22/22 02/22/22 Unknown History subcutaneous solution (Humalog USEASDIRECTD U-100 Insulin) isosorbide dinitrate 10 mg tablet 10 mg PO TID 02/22/22 02/22/22 Unknown History lactulose 10 gram/15 mL oral 30 ml PO BID 02/22/22 02/22/22 Unknown History solution (Enulose) paroxetine HCl 20 mg tablet (Paxil) 20 mg PO DAILY 02/22/22 02/22/22 Unknown History risperidone 0.25 mg tablet 0.25 mg PO BEDTIME 02/22/22 02/22/22 Unknown History sevelamer carbonate 2.4 gram oral 2.4 g PO TID 02/22/22 02/22/22 Unknown History powder packet (Renvela) trazodone 50 mg tablet 50 mg PO BEDTIME 02/22/22 02/22/22 Unknown History Physical Exam Vital Signs and Narrative: Vital Signs: Last Vital Signs Temp 98.6 F 02/22/22 21:34 Pulse 89 02/22/22 21:34 Resp 18 02/22/22 21:34 BP 112/43 L 02/22/22 21:34 Pulse Ox 100 02/22/22 21:31 BMI result Body Mass Index 23.8 Const: Other: somnolent, arousable to painful stimuli, does not answer questions even with the help of lang interpreter General: no acute distress Eyes: General: appearance normal, both eyes and all related structures Pupils: Equal, round and reactive pupils present Resp: Effort & Inspection: normal respiratory effort Auscultation: clear to auscultation bilaterally Cardio: Rate: regular rate Rhythm: regular rhythm GI: Palpation (GI): Soft to palpation Auscultation: normal bowel sounds Skin: General skin exam: no rashes or lesions noted Neuro: Cranial nerves: Yes Equal, round and reactive pupils present Extrem: General: Yes normal to inspection and Yes no pedal edema Results Labs CBC and Chem 7: 02/22/22 12:07 02/22/22 12:07 Labs: Laboratory Results - last 24 hr 02/22/22 02/22/22 02/22/22 12:07 12:07 12:07 MCV 100.5 H MCH 31.4 MCHC 31.2 RDW 15.5 Plt Count 201 MPV 11.2 Immature Gran % (Auto) 0.7 H Neut % (Auto) 75.7 H Lymph % (Auto) 12.0 L [place] % (Auto) 10.4 Eos % (Auto) 0.9 Baso % (Auto) 0.3 Lymph # (Auto) 2.1 [place] # (Auto) 1.8 H Eos # (Auto) 0.2 Baso # (Auto) 0.1 Abs Immat Gran (auto) 0.12 H Absolute Neuts (auto) 13.2 H Absolute Nucleated RBC 0.000 Nucleated RBC % (auto) 0.0 Smear Tech's Comments VERIFIED PT INR APTT O2 Saturation ABG pH at Pt Temp ABG pCO2 at Pt Temp ABG pO2 at Pt Temp ABG HCO3 ABG Base Excess (Actual) VBG pH VBG pCO2 VBG pO2 VBG HCO3 VBG O2 Saturation VBG Base Excess Anion Gap 25 H Estim Creat Clear Calc 6.7 Estimated GFR 6 POC Glucose Random Glucose 198 H Lactic Acid Lactic Acid F/U @ 2Hr Lactic Acid F/U @ 4Hr Calcium 9.5 Total Bilirubin 0.7 AST 41 H ALT 27 Alkaline Phosphatase 149 H Ammonia Troponin I High Sens 2762.2 H* Total Protein 7.3 Albumin 4.0 Stool Occult Blood COVID-19 (AMANDA) COVID-19 Clin Com Influenza Type A (SOL) Influenza Type B (SOL) Influenza A & B Note Blood Type Antibody Screen Crossmatch 02/22/22 02/22/22 02/22/22 12:07 12:07 12:08 MCV MCH MCHC RDW Plt Count MPV Immature Gran % (Auto) Neut % (Auto) Lymph % (Auto) [place] % (Auto) Eos % (Auto) Baso % (Auto) Lymph # (Auto) [place] # (Auto) Eos # (Auto) Baso # (Auto) Abs Immat Gran (auto) Absolute Neuts (auto) Absolute Nucleated RBC Nucleated RBC % (auto) Smear Tech's Comments PT INR APTT O2 Saturation ABG pH at Pt Temp ABG pCO2 at Pt Temp ABG pO2 at Pt Temp ABG HCO3 ABG Base Excess (Actual) VBG pH VBG pCO2 VBG pO2 VBG HCO3 VBG O2 Saturation VBG Base Excess Anion Gap Estim Creat Clear Calc Estimated GFR POC Glucose 194 H Random Glucose Lactic Acid Lactic Acid F/U @ 2Hr Lactic Acid F/U @ 4Hr Calcium Total Bilirubin AST ALT Alkaline Phosphatase Ammonia Troponin I High Sens Total Protein Albumin Stool Occult Blood COVID-19 (AMANDA) Negative COVID-19 Clin Com See Note Influenza Type A (SOL) Negative Influenza Type B (SOL) Negative Influenza A & B Note See Note Blood Type Antibody Screen Crossmatch 02/22/22 02/22/22 02/22/22 12:11 12:14 15:35 MCV MCH MCHC RDW Plt Count MPV Immature Gran % (Auto) Neut % (Auto) Lymph % (Auto) [place] % (Auto) Eos % (Auto) Baso % (Auto) Lymph # (Auto) [place] # (Auto) Eos # (Auto) Baso # (Auto) Abs Immat Gran (auto) Absolute Neuts (auto) Absolute Nucleated RBC Nucleated RBC % (auto) Smear Tech's Comments PT 10.7 INR 0.9 APTT 33.5 O2 Saturation ABG pH at Pt Temp ABG pCO2 at Pt Temp ABG pO2 at Pt Temp ABG HCO3 ABG Base Excess (Actual) VBG pH 7.30 L VBG pCO2 57 VBG pO2 70 VBG HCO3 28 H VBG O2 Saturation 88.0 VBG Base Excess 1.7 Anion Gap Estim Creat Clear Calc Estimated GFR POC Glucose Random Glucose Lactic Acid 3.8 H* Lactic Acid F/U @ 2Hr Lactic Acid F/U @ 4Hr Calcium Total Bilirubin AST ALT Alkaline Phosphatase Ammonia Troponin I High Sens Total Protein Albumin Stool Occult Blood COVID-19 (AMANDA) COVID-19 Clin Com Influenza Type A (SOL) Influenza Type B (SOL) Influenza A & B Note Blood Type Antibody Screen Crossmatch 02/22/22 02/22/22 02/22/22 15:35 15:35 15:35 MCV MCH MCHC RDW Plt Count MPV Immature Gran % (Auto) Neut % (Auto) Lymph % (Auto) [place] % (Auto) Eos % (Auto) Baso % (Auto) Lymph # (Auto) [place] # (Auto) Eos # (Auto) Baso # (Auto) Abs Immat Gran (auto) Absolute Neuts (auto) Absolute Nucleated RBC Nucleated RBC % (auto) Smear Tech's Comments PT INR APTT O2 Saturation ABG pH at Pt Temp ABG pCO2 at Pt Temp ABG pO2 at Pt Temp ABG HCO3 ABG Base Excess (Actual) VBG pH VBG pCO2 VBG pO2 VBG HCO3 VBG O2 Saturation VBG Base Excess Anion Gap Estim Creat Clear Calc Estimated GFR POC Glucose Random Glucose Lactic Acid Lactic Acid F/U @ 2Hr Lactic Acid F/U @ 4Hr Calcium Total Bilirubin AST ALT Alkaline Phosphatase Ammonia 28 Troponin I High Sens 3990.8 H* Total Protein Albumin Stool Occult Blood COVID-19 (AMANDA) COVID-19 Clin Com Influenza Type A (SOL) Influenza Type B (SOL) Influenza A & B Note Blood Type O Positive Antibody Screen NEGATIVE Crossmatch See Detail 02/22/22 02/22/22 02/22/22 15:35 15:50 21:32 MCV MCH MCHC RDW Plt Count MPV Immature Gran % (Auto) Neut % (Auto) Lymph % (Auto) [place] % (Auto) Eos % (Auto) Baso % (Auto) Lymph # (Auto) [place] # (Auto) Eos # (Auto) Baso # (Auto) Abs Immat Gran (auto) Absolute Neuts (auto) Absolute Nucleated RBC Nucleated RBC % (auto) Smear Tech's Comments PT INR APTT O2 Saturation ABG pH at Pt Temp ABG pCO2 at Pt Temp ABG pO2 at Pt Temp ABG HCO3 ABG Base Excess (Actual) VBG pH VBG pCO2 VBG pO2 VBG HCO3 VBG O2 Saturation VBG Base Excess Anion Gap Estim Creat Clear Calc Estimated GFR POC Glucose Random Glucose Lactic Acid Lactic Acid F/U @ 2Hr 2.9 H* Lactic Acid F/U @ 4Hr 2.2 H* Calcium Total Bilirubin AST ALT Alkaline Phosphatase Ammonia Troponin I High Sens Total Protein Albumin Stool Occult Blood POSITIVE COVID-19 (AMANDA) COVID-19 Clin Com Influenza Type A (SOL) Influenza Type B (SOL) Influenza A & B Note Blood Type Antibody Screen Crossmatch 02/22/22 02/22/22 21:32 22:26 MCV MCH MCHC RDW Plt Count MPV Immature Gran % (Auto) Neut % (Auto) Lymph % (Auto) [place] % (Auto) Eos % (Auto) Baso % (Auto) Lymph # (Auto) [place] # (Auto) Eos # (Auto) Baso # (Auto) Abs Immat Gran (auto) Absolute Neuts (auto) Absolute Nucleated RBC Nucleated RBC % (auto) Smear Tech's Comments PT INR APTT O2 Saturation 97.0 ABG pH at Pt Temp 7.39 ABG pCO2 at Pt Temp 35 ABG pO2 at Pt Temp 98 ABG HCO3 21 L ABG Base Excess (Actual) -2.8 VBG pH VBG pCO2 VBG pO2 VBG HCO3 VBG O2 Saturation VBG Base Excess Anion Gap Estim Creat Clear Calc Estimated GFR POC Glucose Random Glucose Lactic Acid Lactic Acid F/U @ 2Hr Lactic Acid F/U @ 4Hr Calcium Total Bilirubin AST ALT Alkaline Phosphatase Ammonia Troponin I High Sens 5968.3 H* Total Protein Albumin Stool Occult Blood COVID-19 (AMANDA) COVID-19 Clin Com Influenza Type A (SOL) Influenza Type B (SOL) Influenza A & B Note Blood Type Antibody Screen Crossmatch Imaging Radiologist's Impressions: Impressions Head CT 02/22/22 12:30 IMPRESSION: 1. No acute intracranial pathology. 2. Mild to moderate mucosal thickening in the left sphenoid sinus was not seen previously. Chest X-Ray 02/22/22 18:19 IMPRESSION: No acute abnormality of chest. Assessment and Plan (1) Encephalopathy: Status: Acute (2) Heme + stool: Status: Acute (3) ESRD (end stage renal disease): Status: Acute (4) Macrocytic anemia: Status: Acute (5) Acute upper GI bleed: Status: Acute (6) NSTEMI (non-ST elevated myocardial infarction): Status: Acute (7) UTI (urinary tract infection): Status: Acute Plan 66-year-old male with past medical history of ESRD on dialysis, Presents to the hospital with altered mental status found to have multiple complications as below # encephalopathy - likely toxic metabolic encephalopathy - patient has multiple issues including anemia, UTI, NSTEMI, as well as elevated creatinine and BUN due to missed dialysis - will treat with IV antibiotics, 50 units of PRBC, will monitor mentation - will hold his sedatives\ # microcytic anemia in the setting of heme-positive stool - no evidence of active bleed - has significant drop in hemoglobin from November - reported history of stomach ulcers - patient started on pantoprazole drip, will continue - receiving 2 units of PRBC, follow H&H post transfusion - GI consulted # UTI - positive UA - will treat with IV antibiotics - follow cultures # NSTEMI - likely type 2 secondary to demand in the setting of significant anemia - EKG shows ST depressions in lateral leads - cardiology was notified by previous physician, felt to be secondary to anemia, - will trend troponin - hold aspirin, Plavix given the severe anemia and evidence of GI bleed - continue statin # ESRD on dialysis - this dialysis on day of presentation - nephrology consulted DVT prophylaxis: SCDs given the above, patient requires a minimum 2 night inpatient stay for further management and monitoring Quality Stroke Does the patient have a stroke diagnosis?: No VTE Prior VTE?: No VTE Risk Level:: Medical - moderate - high VTE Device Contraindication: N/A - Device Ordered VTE Drug Contraindication: Treatment Not Indicated
[2022-02-22 23:37] LABS: Appearance Urine TURBID; Color Urine YELLOW; Glucose Urine UA 100 MG/DL (NEG); Leukocyte Esterase Urine 3+ (NEG); Nitrite Urine NEG (NEG); UACC Culture Trigger YES; Urine Blood 3+ (NEG); Urine Ketones NEG (NEG); Urine Protein 3+ MG/DL (NEG-TRACE)
[2022-02-22 23:44] LABS: Bacteria Urine 1+ /LPF; RBC Urine 0 /HPF (0); Squamous Epithelial Cell Urine TRACE /LPF; WBC Urine TNTC /HPF (0-4)
[2022-02-22 23:55] LABS: Amphetamine Screen Urine Not Detected (Not Detect); Barbiturates, Urine Not Detected (Not Detect); Benzodiazepines Screen Urine Not Detected (Not Detect); Cannabinoid Screen Urine Not Detected (Not Detect); Cocaine Screen Urine Not Detected (Not Detect); Fentanyl, urine Not Detected (Not Detect); Opiate Screen Urine Not Detected (Not Detect); Phencyclidine Screen Urine Not Detected (Not Detect)
[2022-02-23] VITALS (8 sets, daily range): BP systolic 121–157; BP diastolic 56–74; PULSE 83–93; RESP 15–24; TEMP 36.5–37.1; O2SAT 93–100
[2022-02-23] LABS: ABG Refer to POC result
--- NOTE | 2022-02-23 03:15 | PC.NURSE ---
Pharmacy contacted regarding rescheduling patients protonix which has to be held while patient received 2 units of blood.
--- NOTE | 2022-02-23 06:17 | PC.NURSE ---
Checked pt for incontinence. Pt was dry. Boosted pt and gave a warm blanket.
[2022-02-23] MEDS: cefTRIAXone sodium 1 GM in 0.9 % Sodium Chloride 50 ML IV (06:18)
[2022-02-23 06:47] LABS: MANUAL DIFF FLAG NO
[2022-02-23 06:48] LABS: Basophils Absolute Auto 0.1 X10*3/uL (0.0-0.2); Basophils Percent Auto 0.4 % (0-2); Eosinophils Absolute Auto 0.1 X10*3/uL (0.0-0.4); Eosinophils Percent Auto 0.6 % (0-4); Hematocrit 24.9 % (42.0-52.0); Imm Gran Pct Auto 0.6 % (0.0-0.4); Lymphocytes Absolute Auto 0.9 X10*3/uL (1.2-4.9); Lymphocytes Percent Auto 5.8 % (20-40); Mean Corpuscular HGB Conc 32.1 g/dl (31.0-36.0); Mean Corpuscular Hemoglobin 31.7 pg (27.0-33.0); Mean Corpuscular Volume 98.8 fL (80.0-98.0); Mean Platelet Volume 11.9 fL (9.4-12.4); Monocytes Percent Auto 6.6 % (2-11); Neutrophils Absolute Auto 13.6 x10*3/uL (2.0-8.3); Platelet Count 155 X10*3/uL (160-400); Red Blood Count 2.52 X10*6/uL (4.60-5.80); Red Cell Distribution Width 15.1 % (11.0-16.0); White Blood Count 15.9 X10*3/uL (4.8-10.8)
[2022-02-23 07:12] LABS: Anion Gap 23 (12-20); Blood Urea Nitrogen 96 mg/dL (9-16); Calcium 8.9 mg/dL (8.4-10.2); Carbon Dioxide 20 mmol/L (22-29); Chloride 96 mmol/L (96-108); Estimated Glomerular Filt Rate 6; Glucose Random 286 mg/dL (60-115); Sodium 134 mmol/L (135-145)
[2022-02-23 07:48] LABS: Glucose, Whole Blood 281 mg/dL (60-115)
[2022-02-23] MEDS: Pantoprazole Sodium 80 MG in 0.9 % Sodium Chloride 80 ML 10 MG IV ×2 (08:17→18:20)
[2022-02-23] MEDS: Cholecalciferol (Vitamin D3) 25 MCG TABLET 50 MCG PO (09:32)
[2022-02-23] MEDS: Insulin Lispro 100 UNIT/ML 3 ML VIAL SUBCUT ×2 (09:32→20:29)
[2022-02-23] MEDS: Isosorbide Dinitrate 10 MG TABLET PO ×3 (10:04→20:29)
[2022-02-23] MEDS: Sevelamer Carbonate Powder 800 MG POWD.PACK 2400 MG PO ×3 (10:04→20:29)
[2022-02-23 12:27] LABS: Glucose, Whole Blood 224 mg/dL (60-115)
[2022-02-23 14:11] LABS: Glucose, Whole Blood 190 mg/dL (60-115)
--- NOTE | 2022-02-23 14:12 | PC.NURSE ---
patient very lethargic and difficult to arouse, reported to be baseline for patient's admission. patient unable to eat due to lethargy, insulin held as precaution
--- NOTE | 2022-02-23 14:37 | PM.PNNEP ---
Subjective Subjective Date of Service: 02/25/22 Principal diagnosis: ESRD Physical Exam Vital Signs: Vital Signs: Last Vital Signs Temp 98.7 F 02/23/22 07:47 Pulse 83 02/23/22 12:21 Resp 18 02/23/22 12:21 BP 128/56 L 02/23/22 12:21 Pulse Ox 100 02/23/22 12:21 BMI result Body Mass Index 23.8 Const: Other: somnolent, arousable to painful stimuli, does not answer questions even with the help of board handler General: healthy appearing, no acute distress, alert and awake Nutritional Appearance: average body habitus, well nourished and underweight Orientation/consciousness: oriented to person (intermittently), oriented to place (intermittently) and patient oriented x3 Limitations: no limitations, altered mental status and other limitations (dementia) HEENT: Other: Membranes moist Head: Yes normal to inspection and Yes atraumatic Ears: hearing grossly normal bilaterally and external ears normal General nose exam: Normal external nose present, no nasal discharge noted and no epistaxis Face and sinus: Yes normal facial exam, No abrasion and No laceration Mouth: Normal oral and palatal mucosa present, no drooling and no muffled voice Eyes: General: appearance normal, both eyes and all related structures Periorbital: periorbital findings normal Eyelids: Yes eyelids normal Conjunctivae: conjunctivae normal Sclerae: sclerae normal Pupils: Equal, round and reactive pupils present EOM: EOMs intact bilaterally Neck: Neck: Yes normal visual inspection, Yes full ROM and Yes no lymphadenopathy Chest: Chest palpation & inspection: normal inspection of the chest Resp: Other: Clear to auscultation bilaterally no rales rhonchi or wheezes Effort & Inspection: normal respiratory effort and able to speak in complete sentences Auscultation: clear to auscultation bilaterally Cardio: Other: No S4; positive S1-S2; no S3 murmurs rubs gallops Jugular venous distension: no JVD Palpation: normal PMI Rate: regular rate Rhythm: regular rhythm Heart sounds: S1 normal heart sound present, S2 normal heart sound present and no murmurs GI: Other: Soft nontender nondistended with normoactive bowel sounds Inspection: Yes normal to inspection Palpation (GI): Soft to palpation, nontender and No hepatosplenomegaly present Auscultation: normal bowel sounds Rectal Exam - Male: Yes deferred Skin: General skin exam: no rashes or lesions noted and pallor Neuro: General: oriented to person (intermittently), oriented to place (intermittently), patient oriented x3, gait normal and moves all extremities Cranial nerves: Yes Equal, round and reactive pupils present Cognition (Neuro): abnormal cognition (intermittently normal) Motor exam (neuro): 5/5 motor strength present throughout Sensory Exam: Normal double simultaneous stimulation for sensation Coordination: [id number] test normal Pupils: Normal pupillary reactivity/response: bilateral Extrem: Other: dialysis fistula present in left arm General: Yes normal to inspection, Yes full ROM, Yes capillary refill normal and Yes no pedal edema Psych: Appearance: grossly normal Mental Status: mental status grossly normal Affect: normal affect Attitude: cooperative Thought process: Normal thought process present Thought content: Normal thought content present Insight: Good insight present (Psych) Objective Data Labs CBC & Chem 7: 02/25/22 06:57 02/25/22 06:57 Labs: Laboratory Results - last 24 hr 02/22/22 02/22/22 02/22/22 12:07 15:35 15:35 WBC RBC Hgb Hct MCV MCH MCHC RDW Plt Count MPV Immature Gran % (Auto) Neut % (Auto) Lymph % (Auto) [place] % (Auto) Eos % (Auto) Baso % (Auto) Lymph # (Auto) [place] # (Auto) Eos # (Auto) Baso # (Auto) Abs Immat Gran (auto) Absolute Neuts (auto) Absolute Nucleated RBC Nucleated RBC % (auto) Smear Path Review SEE NOTE PT 10.7 INR 0.9 APTT 33.5 O2 Saturation ABG pH at Pt Temp ABG pCO2 at Pt Temp ABG pO2 at Pt Temp ABG HCO3 ABG Base Excess (Actual) Sodium Potassium Chloride Carbon Dioxide Anion Gap BUN Creatinine Estim Creat Clear Calc Estimated GFR POC Glucose Random Glucose Lactic Acid F/U @ 2Hr Lactic Acid F/U @ 4Hr Calcium Ammonia 28 Troponin I High Sens Urine Color Urine Appearance Urine pH Ur Specific [place] Urine Protein Urine Glucose (UA) Urine Ketones Urine Blood Urine Nitrite Ur Leukocyte Esterase Urine RBC Urine WBC Ur Squamous Epith Cells Urine Bacteria Stool Occult Blood Urine Opiates Screen Urine Fentanyl Screen Ur Barbiturates Screen Ur Phencyclidine Scrn Ur Amphetamines Screen U Benzodiazepines Scrn Urine Cocaine Screen U Marijuana (THC) Screen Blood Type Antibody Screen Crossmatch 02/22/22 02/22/22 02/22/22 15:35 15:35 15:35 WBC RBC Hgb Hct MCV MCH MCHC RDW Plt Count MPV Immature Gran % (Auto) Neut % (Auto) Lymph % (Auto) [place] % (Auto) Eos % (Auto) Baso % (Auto) Lymph # (Auto) [place] # (Auto) Eos # (Auto) Baso # (Auto) Abs Immat Gran (auto) Absolute Neuts (auto) Absolute Nucleated RBC Nucleated RBC % (auto) Smear Path Review PT INR APTT O2 Saturation ABG pH at Pt Temp ABG pCO2 at Pt Temp ABG pO2 at Pt Temp ABG HCO3 ABG Base Excess (Actual) Sodium Potassium Chloride Carbon Dioxide Anion Gap BUN Creatinine Estim Creat Clear Calc Estimated GFR POC Glucose Random Glucose Lactic Acid F/U @ 2Hr 2.9 H* Lactic Acid F/U @ 4Hr Calcium Ammonia Troponin I High Sens 3990.8 H* Urine Color Urine Appearance Urine pH Ur Specific [place] Urine Protein Urine Glucose (UA) Urine Ketones Urine Blood Urine Nitrite Ur Leukocyte Esterase Urine RBC Urine WBC Ur Squamous Epith Cells Urine Bacteria Stool Occult Blood Urine Opiates Screen Urine Fentanyl Screen Ur Barbiturates Screen Ur Phencyclidine Scrn Ur Amphetamines Screen U Benzodiazepines Scrn Urine Cocaine Screen U Marijuana (THC) Screen Blood Type O Positive Antibody Screen NEGATIVE Crossmatch See Detail 02/22/22 02/22/22 02/22/22 15:50 21:32 21:32 WBC RBC Hgb Hct MCV MCH MCHC RDW Plt Count MPV Immature Gran % (Auto) Neut % (Auto) Lymph % (Auto) [place] % (Auto) Eos % (Auto) Baso % (Auto) Lymph # (Auto) [place] # (Auto) Eos # (Auto) Baso # (Auto) Abs Immat Gran (auto) Absolute Neuts (auto) Absolute Nucleated RBC Nucleated RBC % (auto) Smear Path Review PT INR APTT O2 Saturation ABG pH at Pt Temp ABG pCO2 at Pt Temp ABG pO2 at Pt Temp ABG HCO3 ABG Base Excess (Actual) Sodium Potassium Chloride Carbon Dioxide Anion Gap BUN Creatinine Estim Creat Clear Calc Estimated GFR POC Glucose Random Glucose Lactic Acid F/U @ 2Hr Lactic Acid F/U @ 4Hr 2.2 H* Calcium Ammonia Troponin I High Sens 5968.3 H* Urine Color Urine Appearance Urine pH Ur Specific [place] Urine Protein Urine Glucose (UA) Urine Ketones Urine Blood Urine Nitrite Ur Leukocyte Esterase Urine RBC Urine WBC Ur Squamous Epith Cells Urine Bacteria Stool Occult Blood POSITIVE Urine Opiates Screen Urine Fentanyl Screen Ur Barbiturates Screen Ur Phencyclidine Scrn Ur Amphetamines Screen U Benzodiazepines Scrn Urine Cocaine Screen U Marijuana (THC) Screen Blood Type Antibody Screen Crossmatch 02/22/22 02/22/22 02/22/22 22:26 23:29 23:29 WBC RBC Hgb Hct MCV MCH MCHC RDW Plt Count MPV Immature Gran % (Auto) Neut % (Auto) Lymph % (Auto) [place] % (Auto) Eos % (Auto) Baso % (Auto) Lymph # (Auto) [place] # (Auto) Eos # (Auto) Baso # (Auto) Abs Immat Gran (auto) Absolute Neuts (auto) Absolute Nucleated RBC Nucleated RBC % (auto) Smear Path Review PT INR APTT O2 Saturation 97.0 ABG pH at Pt Temp 7.39 ABG pCO2 at Pt Temp 35 ABG pO2 at Pt Temp 98 ABG HCO3 21 L ABG Base Excess (Actual) -2.8 Sodium Potassium Chloride Carbon Dioxide Anion Gap BUN Creatinine Estim Creat Clear Calc Estimated GFR POC Glucose Random Glucose Lactic Acid F/U @ 2Hr Lactic Acid F/U @ 4Hr Calcium Ammonia Troponin I High Sens Urine Color YELLOW Urine Appearance TURBID Urine pH 7.0 Ur Specific [place] 1.020 Urine Protein 3+ H Urine Glucose (UA) 100 H Urine Ketones NEG Urine Blood 3+ H Urine Nitrite NEG Ur Leukocyte Esterase 3+ H Urine RBC 0 Urine WBC TNTC H Ur Squamous Epith Cells TRACE Urine Bacteria 1+ Stool Occult Blood Urine Opiates Screen Not Detected Urine Fentanyl Screen Not Detected Ur Barbiturates Screen Not Detected Ur Phencyclidine Scrn Not Detected Ur Amphetamines Screen Not Detected U Benzodiazepines Scrn Not Detected Urine Cocaine Screen Not Detected U Marijuana (THC) Screen Not Detected Blood Type Antibody Screen Crossmatch 02/23/22 02/23/22 02/23/22 06:31 06:32 07:44 WBC 15.9 H RBC 2.52 L D Hgb 8.0 L D Hct 24.9 L D MCV 98.8 H MCH 31.7 MCHC 32.1 RDW 15.1 Plt Count 155 L MPV 11.9 Immature Gran % (Auto) 0.6 H Neut % (Auto) 86.0 H Lymph % (Auto) 5.8 L [place] % (Auto) 6.6 Eos % (Auto) 0.6 Baso % (Auto) 0.4 Lymph # (Auto) 0.9 L [place] # (Auto) 1.0 Eos # (Auto) 0.1 Baso # (Auto) 0.1 Abs Immat Gran (auto) 0.10 H Absolute Neuts (auto) 13.6 H Absolute Nucleated RBC 0.000 Nucleated RBC % (auto) 0.0 Smear Path Review PT INR APTT O2 Saturation ABG pH at Pt Temp ABG pCO2 at Pt Temp ABG pO2 at Pt Temp ABG HCO3 ABG Base Excess (Actual) Sodium 134 L Potassium 5.0 Chloride 96 Carbon Dioxide 20 L Anion Gap 23 H BUN 96 H Creatinine 9.41 H* Estim Creat Clear Calc 6.0 Estimated GFR 6 POC Glucose 281 H Random Glucose 286 H D Lactic Acid F/U @ 2Hr Lactic Acid F/U @ 4Hr Calcium 8.9 D Ammonia Troponin I High Sens Urine Color Urine Appearance Urine pH Ur Specific [place] Urine Protein Urine Glucose (UA) Urine Ketones Urine Blood Urine Nitrite Ur Leukocyte Esterase Urine RBC Urine WBC Ur Squamous Epith Cells Urine Bacteria Stool Occult Blood Urine Opiates Screen Urine Fentanyl Screen Ur Barbiturates Screen Ur Phencyclidine Scrn Ur Amphetamines Screen U Benzodiazepines Scrn Urine Cocaine Screen U Marijuana (THC) Screen Blood Type Antibody Screen Crossmatch 02/23/22 02/23/22 02/23/22 12:18 12:48 14:07 WBC RBC Hgb Hct MCV MCH MCHC RDW Plt Count MPV Immature Gran % (Auto) Neut % (Auto) Lymph % (Auto) [place] % (Auto) Eos % (Auto) Baso % (Auto) Lymph # (Auto) [place] # (Auto) Eos # (Auto) Baso # (Auto) Abs Immat Gran (auto) Absolute Neuts (auto) Absolute Nucleated RBC Nucleated RBC % (auto) Smear Path Review PT INR APTT O2 Saturation ABG pH at Pt Temp ABG pCO2 at Pt Temp ABG pO2 at Pt Temp ABG HCO3 ABG Base Excess (Actual) Sodium Potassium Chloride Carbon Dioxide Anion Gap BUN Creatinine Estim Creat Clear Calc Estimated GFR POC Glucose 224 H 190 H Random Glucose Lactic Acid F/U @ 2Hr Lactic Acid F/U @ 4Hr Calcium Ammonia Troponin I High Sens 8592.5 H* Urine Color Urine Appearance Urine pH Ur Specific [place] Urine Protein Urine Glucose (UA) Urine Ketones Urine Blood Urine Nitrite Ur Leukocyte Esterase Urine RBC Urine WBC Ur Squamous Epith Cells Urine Bacteria Stool Occult Blood Urine Opiates Screen Urine Fentanyl Screen Ur Barbiturates Screen Ur Phencyclidine Scrn Ur Amphetamines Screen U Benzodiazepines Scrn Urine Cocaine Screen U Marijuana (THC) Screen Blood Type Antibody Screen Crossmatch Microbiology Microbiology Results: Microbiology 02/22/22 12:07 Blood - Venous Blood Culture - Preliminary No growth after 24 hours. Procedures Date of Service Date of Service: 02/24/22 Assessment & Plan Assessment and plan (1) ESRD (end stage renal disease): Status: Acute (2) Encephalopathy: Status: Acute (3) Anemia: Status: Acute (4) NSTEMI (non-ST elevated myocardial infarction): Status: Acute Plan 66-year-old male with past medical history of ESRD on dialysis, Presents to the hospital with altered mental status found to have multiple complications as below 1.Encephalopathy - resolving; all cultures negative -D/C antibiotics 2.Anemia -good response to transfusion; follow CBCs daily -continue Pantoprazole drip x 24 hrs -follow CBC in am -GI to scope when cleared from Cards;will discuss utility of same with GI in am 3. NSTEMI -likely type 2 secondary to demand in the setting of significant anemia -troponins trending down -hold Plavix/anticoag 4.ESRD on HD -due for HD -consult renal DVT prophylaxis: SCDs DNR/DNI Will require at least 2-3 additional midnights going forward for stabilization of hemoglobin and verification of an NSTEMI by Cardiology and probable endoscopy by GI once cleared by Cardiology Time Spent With Patient Time: Total time spent is greater than 50% in coordination of care (as documented) at patient's floor/unit and/or counseling patient: Progress Note: Quality Stroke Does the patient have a stroke diagnosis?: No
--- NOTE | 2022-02-23 15:09 | PC.NURSE ---
patient transported to floor at this time. attempted to call report several times to [facility]. patient lethargic but arousable to tactile stimuli. patient in no obvious distress at this time.
--- NOTE | 2022-02-23 15:35 | P.PNIM_ITS ---
Subjective Subjective Date of Service: 02/23/22 Interval History: More alert this a.m. then reflected in admitting notes. Still confused difficult to converse with Review of Systems Unable to obtain secondary to confusion Physical Exam Vital Signs: Vital Signs: Last Vital Signs Temp 98.7 F 02/23/22 07:47 Pulse 83 02/23/22 12:21 Resp 18 02/23/22 12:21 BP 128/56 L 02/23/22 12:21 Pulse Ox 100 02/23/22 12:21 BMI result Body Mass Index 23.8 Const: Other: Awake alert confused; nonsensical speech HEENT: Other: Membranes moist Resp: Other: Clear to auscultation bilaterally no rales rhonchi or wheezes Cardio: Other: No S4; positive S1-S2; no S3 murmurs rubs gallops GI: Other: Soft nontender nondistended with normoactive bowel sounds Extrem: Other: No edema bilaterally; bruit heard over fistula left upper extremity Objective Data Active Medications Acetaminophen (Acetaminophen 325 Mg Tablet) 650 mg PO Q6H PRN PRN Reason: Pain, Mild (Pain Scale 1-3) Atorvastatin Calcium (Atorvastatin Calcium 80 Mg Tablet) 80 mg PO BEDTIME EVA Bisacodyl (Bisacodyl 5 Mg Tablet.Dr) 5 mg PO DAILY PRN PRN Reason: constipation Dextrose (Dextrose 50 % 25 Gm/50 Ml Syringe) 25 gm IVPUSH Q15M PRN; Protocol PRN Reason: per Hypoglycemia Standing Ord. Docusate Sodium (Docusate Sodium 100 Mg Capsule) 100 mg PO DAILY PRN PRN Reason: Constipation Glucose (Glucose Gel 15 Gm Gel..Gram.) 15 gm PO Q15M PRN; Protocol PRN Reason: per Hypoglycemia Standing Ord. Ceftriaxone Sodium 1 gm/ (Sodium Chloride) 50 mls @ 100 mls/hr IV Q24H [facility] Last Infusion: 02/23/22 07:50 Dose: 0 mls/hr Documented by: ADRIA Pantoprazole Sodium 80 mg/ (Sodium Chloride) 100 mls @ 10 mls/hr IV .Q10H [facility] Last Admin: 02/23/22 08:17 Dose: 8 mg/hr, 10 mls/hr Documented by: BENSON Insulin Glargine (Insulin Glargine,Hum.Rec.Anlog 100 Unit/Ml 10 Ml Vial) 10 unit SUBCUT BEDTIME [facility] Insulin Human Lispro (Insulin Lispro 100 Unit/Ml 3 Ml Vial) 0 unit SUBCUT QIDACHS [facility]; Protocol Last Admin: 02/23/22 14:12 Dose: Not Given Documented by: JAMISON Non-Admin Reason: See Note Isosorbide Dinitrate (Isosorbide Dinitrate 10 Mg Tablet) 10 mg PO TID [facility]; Protocol Last Admin: 02/23/22 10:04 Dose: 10 mg Documented by: ADRIA Ondansetron HCl (Ondansetron Hcl 4 Mg/2 Ml Vial) 4 mg IVPUSH Q8H PRN PRN Reason: Nausea and Vomiting Pharmacy Consult (Consult Rx Perform Med Rec) 1 each MISCELLANE ONCE PRN PRN Reason: Consult order Sevelamer Carbonate (Sevelamer Carbonate Powder 800 Mg Powd.Pack) 2,400 mg PO TID [facility] Last Admin: 02/23/22 10:04 Dose: 2,400 mg Documented by: ADRIA Sodium Chloride (0.9 % Sodium Chloride Flush 3 Ml Syringe) 3 ml IVFLUSH QSHIFT [facility] Last Admin: 02/23/22 08:17 Dose: Not Given Documented by: BENSON Non-Admin Reason: IV Running Vitamin D (Cholecalciferol (Vitamin D3) 25 Mcg Tablet) 50 mcg PO DAILY [facility] Last Admin: 02/23/22 09:32 Dose: 50 mcg Documented by: ADRIA Labs CBC & Chem 7: 02/23/22 06:32 02/23/22 06:31 Labs: Laboratory Results - last 24 hr 02/22/22 02/22/22 02/22/22 12:07 12:08 12:11 MCV MCH MCHC RDW Plt Count MPV Immature Gran % (Auto) Neut % (Auto) Lymph % (Auto) [place] % (Auto) Eos % (Auto) Baso % (Auto) Lymph # (Auto) [place] # (Auto) Eos # (Auto) Baso # (Auto) Abs Immat Gran (auto) Absolute Neuts (auto) Absolute Nucleated RBC Nucleated RBC % (auto) Smear Path Review SEE NOTE PT INR APTT O2 Saturation ABG pH at Pt Temp ABG pCO2 at Pt Temp ABG pO2 at Pt Temp ABG HCO3 ABG Base Excess (Actual) VBG pH 7.30 L VBG pCO2 57 VBG pO2 70 VBG HCO3 28 H VBG O2 Saturation 88.0 VBG Base Excess 1.7 Anion Gap Estim Creat Clear Calc Estimated GFR POC Glucose 194 H Random Glucose Lactic Acid F/U @ 2Hr Lactic Acid F/U @ 4Hr Calcium Ammonia Troponin I High Sens Urine Color Urine Appearance Urine pH Ur Specific [place] Urine Protein Urine Glucose (UA) Urine Ketones Urine Blood Urine Nitrite Ur Leukocyte Esterase Urine RBC Urine WBC Ur Squamous Epith Cells Urine Bacteria Stool Occult Blood Urine Opiates Screen Urine Fentanyl Screen Ur Barbiturates Screen Ur Phencyclidine Scrn Ur Amphetamines Screen U Benzodiazepines Scrn Urine Cocaine Screen U Marijuana (THC) Screen Blood Type Antibody Screen Crossmatch 02/22/22 02/22/22 02/22/22 15:35 15:35 15:35 MCV MCH MCHC RDW Plt Count MPV Immature Gran % (Auto) Neut % (Auto) Lymph % (Auto) [place] % (Auto) Eos % (Auto) Baso % (Auto) Lymph # (Auto) [place] # (Auto) Eos # (Auto) Baso # (Auto) Abs Immat Gran (auto) Absolute Neuts (auto) Absolute Nucleated RBC Nucleated RBC % (auto) Smear Path Review PT 10.7 INR 0.9 APTT 33.5 O2 Saturation ABG pH at Pt Temp ABG pCO2 at Pt Temp ABG pO2 at Pt Temp ABG HCO3 ABG Base Excess (Actual) VBG pH VBG pCO2 VBG pO2 VBG HCO3 VBG O2 Saturation VBG Base Excess Anion Gap Estim Creat Clear Calc Estimated GFR POC Glucose Random Glucose Lactic Acid F/U @ 2Hr Lactic Acid F/U @ 4Hr Calcium Ammonia 28 Troponin I High Sens Urine Color Urine Appearance Urine pH Ur Specific [place] Urine Protein Urine Glucose (UA) Urine Ketones Urine Blood Urine Nitrite Ur Leukocyte Esterase Urine RBC Urine WBC Ur Squamous Epith Cells Urine Bacteria Stool Occult Blood Urine Opiates Screen Urine Fentanyl Screen Ur Barbiturates Screen Ur Phencyclidine Scrn Ur Amphetamines Screen U Benzodiazepines Scrn Urine Cocaine Screen U Marijuana (THC) Screen Blood Type O Positive Antibody Screen NEGATIVE Crossmatch See Detail 02/22/22 02/22/22 02/22/22 15:35 15:35 15:50 MCV MCH MCHC RDW Plt Count MPV Immature Gran % (Auto) Neut % (Auto) Lymph % (Auto) [place] % (Auto) Eos % (Auto) Baso % (Auto) Lymph # (Auto) [place] # (Auto) Eos # (Auto) Baso # (Auto) Abs Immat Gran (auto) Absolute Neuts (auto) Absolute Nucleated RBC Nucleated RBC % (auto) Smear Path Review PT INR APTT O2 Saturation ABG pH at Pt Temp ABG pCO2 at Pt Temp ABG pO2 at Pt Temp ABG HCO3 ABG Base Excess (Actual) VBG pH VBG pCO2 VBG pO2 VBG HCO3 VBG O2 Saturation VBG Base Excess Anion Gap Estim Creat Clear Calc Estimated GFR POC Glucose Random Glucose Lactic Acid F/U @ 2Hr 2.9 H* Lactic Acid F/U @ 4Hr Calcium Ammonia Troponin I High Sens 3990.8 H* Urine Color Urine Appearance Urine pH Ur Specific [place] Urine Protein Urine Glucose (UA) Urine Ketones Urine Blood Urine Nitrite Ur Leukocyte Esterase Urine RBC Urine WBC Ur Squamous Epith Cells Urine Bacteria Stool Occult Blood POSITIVE Urine Opiates Screen Urine Fentanyl Screen Ur Barbiturates Screen Ur Phencyclidine Scrn Ur Amphetamines Screen U Benzodiazepines Scrn Urine Cocaine Screen U Marijuana (THC) Screen Blood Type Antibody Screen Crossmatch 02/22/22 02/22/22 02/22/22 21:32 21:32 22:26 MCV MCH MCHC RDW Plt Count MPV Immature Gran % (Auto) Neut % (Auto) Lymph % (Auto) [place] % (Auto) Eos % (Auto) Baso % (Auto) Lymph # (Auto) [place] # (Auto) Eos # (Auto) Baso # (Auto) Abs Immat Gran (auto) Absolute Neuts (auto) Absolute Nucleated RBC Nucleated RBC % (auto) Smear Path Review PT INR APTT O2 Saturation 97.0 ABG pH at Pt Temp 7.39 ABG pCO2 at Pt Temp 35 ABG pO2 at Pt Temp 98 ABG HCO3 21 L ABG Base Excess (Actual) -2.8 VBG pH VBG pCO2 VBG pO2 VBG HCO3 VBG O2 Saturation VBG Base Excess Anion Gap Estim Creat Clear Calc Estimated GFR POC Glucose Random Glucose Lactic Acid F/U @ 2Hr Lactic Acid F/U @ 4Hr 2.2 H* Calcium Ammonia Troponin I High Sens 5968.3 H* Urine Color Urine Appearance Urine pH Ur Specific [place] Urine Protein Urine Glucose (UA) Urine Ketones Urine Blood Urine Nitrite Ur Leukocyte Esterase Urine RBC Urine WBC Ur Squamous Epith Cells Urine Bacteria Stool Occult Blood Urine Opiates Screen Urine Fentanyl Screen Ur Barbiturates Screen Ur Phencyclidine Scrn Ur Amphetamines Screen U Benzodiazepines Scrn Urine Cocaine Screen U Marijuana (THC) Screen Blood Type Antibody Screen Crossmatch 02/22/22 02/22/22 02/23/22 23:29 23:29 06:31 MCV MCH MCHC RDW Plt Count MPV Immature Gran % (Auto) Neut % (Auto) Lymph % (Auto) [place] % (Auto) Eos % (Auto) Baso % (Auto) Lymph # (Auto) [place] # (Auto) Eos # (Auto) Baso # (Auto) Abs Immat Gran (auto) Absolute Neuts (auto) Absolute Nucleated RBC Nucleated RBC % (auto) Smear Path Review PT INR APTT O2 Saturation ABG pH at Pt Temp ABG pCO2 at Pt Temp ABG pO2 at Pt Temp ABG HCO3 ABG Base Excess (Actual) VBG pH VBG pCO2 VBG pO2 VBG HCO3 VBG O2 Saturation VBG Base Excess Anion Gap 23 H Estim Creat Clear Calc 6.0 Estimated GFR 6 POC Glucose Random Glucose 286 H D Lactic Acid F/U @ 2Hr Lactic Acid F/U @ 4Hr Calcium 8.9 D Ammonia Troponin I High Sens Urine Color YELLOW Urine Appearance TURBID Urine pH 7.0 Ur Specific [place] 1.020 Urine Protein 3+ H Urine Glucose (UA) 100 H Urine Ketones NEG Urine Blood 3+ H Urine Nitrite NEG Ur Leukocyte Esterase 3+ H Urine RBC 0 Urine WBC TNTC H Ur Squamous Epith Cells TRACE Urine Bacteria 1+ Stool Occult Blood Urine Opiates Screen Not Detected Urine Fentanyl Screen Not Detected Ur Barbiturates Screen Not Detected Ur Phencyclidine Scrn Not Detected Ur Amphetamines Screen Not Detected U Benzodiazepines Scrn Not Detected Urine Cocaine Screen Not Detected U Marijuana (THC) Screen Not Detected Blood Type Antibody Screen Crossmatch 02/23/22 02/23/22 02/23/22 06:32 07:44 12:18 MCV 98.8 H MCH 31.7 MCHC 32.1 RDW 15.1 Plt Count 155 L MPV 11.9 Immature Gran % (Auto) 0.6 H Neut % (Auto) 86.0 H Lymph % (Auto) 5.8 L [place] % (Auto) 6.6 Eos % (Auto) 0.6 Baso % (Auto) 0.4 Lymph # (Auto) 0.9 L [place] # (Auto) 1.0 Eos # (Auto) 0.1 Baso # (Auto) 0.1 Abs Immat Gran (auto) 0.10 H Absolute Neuts (auto) 13.6 H Absolute Nucleated RBC 0.000 Nucleated RBC % (auto) 0.0 Smear Path Review PT INR APTT O2 Saturation ABG pH at Pt Temp ABG pCO2 at Pt Temp ABG pO2 at Pt Temp ABG HCO3 ABG Base Excess (Actual) VBG pH VBG pCO2 VBG pO2 VBG HCO3 VBG O2 Saturation VBG Base Excess Anion Gap Estim Creat Clear Calc Estimated GFR POC Glucose 281 H 224 H Random Glucose Lactic Acid F/U @ 2Hr Lactic Acid F/U @ 4Hr Calcium Ammonia Troponin I High Sens Urine Color Urine Appearance Urine pH Ur Specific [place] Urine Protein Urine Glucose (UA) Urine Ketones Urine Blood Urine Nitrite Ur Leukocyte Esterase Urine RBC Urine WBC Ur Squamous Epith Cells Urine Bacteria Stool Occult Blood Urine Opiates Screen Urine Fentanyl Screen Ur Barbiturates Screen Ur Phencyclidine Scrn Ur Amphetamines Screen U Benzodiazepines Scrn Urine Cocaine Screen U Marijuana (THC) Screen Blood Type Antibody Screen Crossmatch 02/23/22 02/23/22 12:48 14:07 MCV MCH MCHC RDW Plt Count MPV Immature Gran % (Auto) Neut % (Auto) Lymph % (Auto) [place] % (Auto) Eos % (Auto) Baso % (Auto) Lymph # (Auto) [place] # (Auto) Eos # (Auto) Baso # (Auto) Abs Immat Gran (auto) Absolute Neuts (auto) Absolute Nucleated RBC Nucleated RBC % (auto) Smear Path Review PT INR APTT O2 Saturation ABG pH at Pt Temp ABG pCO2 at Pt Temp ABG pO2 at Pt Temp ABG HCO3 ABG Base Excess (Actual) VBG pH VBG pCO2 VBG pO2 VBG HCO3 VBG O2 Saturation VBG Base Excess Anion Gap Estim Creat Clear Calc Estimated GFR POC Glucose 190 H Random Glucose Lactic Acid F/U @ 2Hr Lactic Acid F/U @ 4Hr Calcium Ammonia Troponin I High Sens 8592.5 H* Urine Color Urine Appearance Urine pH Ur Specific [place] Urine Protein Urine Glucose (UA) Urine Ketones Urine Blood Urine Nitrite Ur Leukocyte Esterase Urine RBC Urine WBC Ur Squamous Epith Cells Urine Bacteria Stool Occult Blood Urine Opiates Screen Urine Fentanyl Screen Ur Barbiturates Screen Ur Phencyclidine Scrn Ur Amphetamines Screen U Benzodiazepines Scrn Urine Cocaine Screen U Marijuana (THC) Screen Blood Type Antibody Screen Crossmatch Microbiology Microbiology Results: Microbiology 02/22/22 12:07 Blood Culture - Preliminary Blood - Venous No growth after 24 hours. Assessment and Plan (1) Anemia: Status: Acute (2) NSTEMI (non-ST elevated myocardial infarction): Status: Acute (3) UTI (urinary tract infection): Status: Acute (4) ESRD (end stage renal disease): Status: Acute Plan 66-year-old male with past medical history of ESRD on dialysis, Presents to the hospital with altered mental status found to have multiple complications as below 1.Encephalopathy - likely toxic metabolic encephalopathy;multifactorial(anemia, UTI, NSTEMI, as well as elevated creatinine and BUN due to missed dialysis) - continue IV ABTX awaiting cultures 2.Anemia -good response to transfusion; follow CBCs daily -continue Pantoprazole drip x 24 hrs -follow CBC in am 3. Active urinary sediment in the backdrop of chronic hemodialysis -continue empirical IV ABTX treatment pending urine culture -query colonization 4. NSTEMI -likely type 2 secondary to demand in the setting of significant anemia -EKG shows ST depressions in lateral leads -hold Plavix/anticoag -Cards consult 5.ESRD on HD -due for HD -consult renal DVT prophylaxis: SCDs Will require at least 2 additional midnights going forward for stabilization of hemoglobin and verification of an NSTEMI by Cardiology Quality Stroke Does the patient have a stroke diagnosis?: No VTE Prior VTE?: No VTE Risk Level:: Medical - moderate - high VTE Device Contraindication: N/A - Device Ordered VTE Drug Contraindication: Treatment Not Indicated
[2022-02-23] MEDS: 0.9 % Sodium Chloride Flush 3 ML SYRINGE IVFLUSH ×2 (16:01→20:30)
[2022-02-23 16:06] LABS: Glucose, Whole Blood 169 mg/dL (60-115)
--- NOTE | 2022-02-23 16:20 | PM.CNNEP ---
History of Present Illness Reason for Consult Consult date: 02/23/22 Chief Complaint Chief complaint: Encephalopathy, Acute GI Bleed anemia, NStemi History of Present Illness Narrative: Mr Neil is a 66 yo man with ESRD on hemodialysis. I do not know him as a pt but he is cared for by my colleagues. He carries a dx of Parkinsons, dementia. He presented to dialysis with AMS, weakness. He was not dialyzed and was sent to the ER here. He was found to be markedly anemic with hg of 5.9. He was transfused. We are asked to care for his dialysis needs while an inpatient. He does take plavix, according the med list. Review of Systems Review of Systems Unable to obtain secondary to confusion Yes Unobtainable due to mental condition and Unobtainable due to mental status Constitutional: Reports no additional constitutional complaints, Denies chills, Denies fever(s) and Denies night sweats Eyes: Reports no additional eye complaints, Denies blurry vision, Denies change in vision, Denies diplopia, Denies eye discharge, Denies loss of vision and Denies eye pain Denies dizziness Cardiovascular: Reports no additional cardiovascular complaints, Denies chest pain, Denies lightheadedness, Denies Loss of Consciousness and Denies dyspnea Respiratory: Reports no additional respiratory complaints and Denies dyspnea Gastrointestinal: Reports no additional gastrointestinal complaints, Denies abdominal pain, Denies melena, Denies hematochezia, Denies change in bowel habits and Denies change in stool character Genitourinary: Reports no additional male genitourinary complaints, Denies hematuria, Denies oliguria, Denies difficulty urinating, Denies dysuria, Denies urinary frequency, Denies urinary hesitancy, Denies urinary incontinence and Denies urinary urgency Musculoskeletal: Reports no additional musculoskeletal complaints, Denies numbness and Denies tingling Denies dizziness, Denies loss of vision, Denies numbness and Denies tingling Psychiatric: Reports no additional psychiatric complaints Endocrine: Reports no additional endocrine complaints Hematologic/Lymphatic: Reports no additional hematologic/lymphatic complaints Allergic/Immunologic: Reports no additional allergic/immunologic complaints [facility] Social History Social History Household Members: Unknown / Unable to assess Housing: Unknown / Unable to assess Do you presently have visiting nurse or other home services: No (unknown) Unable to assess alcohol history related to: Unknown Alcohol intake: former Patient Tobacco Use Status: Former Tobacco user Meds Allergies Allergy/AdvReac Type Severity Reaction Status Date / Time Penicillins [PCN] Allergy Intermediate ITCHING Verified 02/22/22 12:14 Active Medications: Current Medications Acetaminophen (Acetaminophen 325 Mg Tablet) 650 mg PO Q6H PRN PRN Reason: Pain, Mild (Pain Scale 1-3) Atorvastatin Calcium (Atorvastatin Calcium 80 Mg Tablet) 80 mg PO BEDTIME EVA Bisacodyl (Bisacodyl 5 Mg Tablet.Dr) 5 mg PO DAILY PRN PRN Reason: constipation Dextrose (Dextrose 50 % 25 Gm/50 Ml Syringe) 25 gm IVPUSH Q15M PRN; Protocol PRN Reason: per Hypoglycemia Standing Ord. Docusate Sodium (Docusate Sodium 100 Mg Capsule) 100 mg PO DAILY PRN PRN Reason: Constipation Glucose (Glucose Gel 15 Gm Gel..Gram.) 15 gm PO Q15M PRN; Protocol PRN Reason: per Hypoglycemia Standing Ord. Ceftriaxone Sodium 1 gm/ (Sodium Chloride) 50 mls @ 100 mls/hr IV Q24H [facility] Last Infusion: 02/23/22 07:50 Dose: Infused Documented by: Pantoprazole Sodium 80 mg/ (Sodium Chloride) 100 mls @ 10 mls/hr IV .Q10H [facility] Last Admin: 02/23/22 08:17 Dose: 8 mg/hr, 10 mls/hr Documented by: Insulin Glargine (Insulin Glargine,Hum.Rec.Anlog 100 Unit/Ml 10 Ml Vial) 10 unit SUBCUT BEDTIME [facility] Insulin Human Lispro (Insulin Lispro 100 Unit/Ml 3 Ml Vial) 0 unit SUBCUT QIDACHS [facility]; Protocol Last Admin: 02/23/22 14:12 Dose: Not Given Documented by: Isosorbide Dinitrate (Isosorbide Dinitrate 10 Mg Tablet) 10 mg PO TID [facility]; Protocol Last Admin: 02/23/22 16:01 Dose: 10 mg Documented by: Ondansetron HCl (Ondansetron Hcl 4 Mg/2 Ml Vial) 4 mg IVPUSH Q8H PRN PRN Reason: Nausea and Vomiting Pharmacy Consult (Consult Rx Perform Med Rec) 1 each MISCELLANE ONCE PRN PRN Reason: Consult order Sevelamer Carbonate (Sevelamer Carbonate Powder 800 Mg Powd.Pack) 2,400 mg PO TID [facility] Last Admin: 02/23/22 16:01 Dose: 2,400 mg Documented by: Sodium Chloride (0.9 % Sodium Chloride Flush 3 Ml Syringe) 3 ml IVFLUSH QSHIFT [facility] Last Admin: 02/23/22 16:01 Dose: 3 ml Documented by: Vitamin D (Cholecalciferol (Vitamin D3) 25 Mcg Tablet) 50 mcg PO DAILY [facility] Last Admin: 02/23/22 09:32 Dose: 50 mcg Documented by: Home Medications Medication Instructions Recorded Confirmed Last Taken Type aspirin 81 mg chewable tablet 81 mg PO DAILY 02/22/22 02/22/22 Unknown History atorvastatin 80 mg tablet 80 mg PO BEDTIME 02/22/22 02/22/22 Unknown History bisacodyl 5 mg tablet,delayed 1 tab PO DAILY PRN 02/22/22 02/22/22 Unknown History release (Dulcolax (bisacodyl)) cholecalciferol (vitamin D3) 50 50 mcg PO DAILY 02/22/22 02/22/22 Unknown History mcg (2,000 unit) tablet clopidogrel 75 mg tablet 75 mg PO SUMOWEFR 02/22/22 02/22/22 Unknown History insulin glargine 100 unit/mL (3 10 unit SUBCUT BEDTIME 02/22/22 02/22/22 Unknown History mL) subcutaneous pen (Lantus Solostar U-100 Insulin) insulin lispro 100 unit/mL 1 sliding scale dose SUBCUT 02/22/22 02/22/22 Unknown History subcutaneous solution (Humalog USEASDIRECTD U-100 Insulin) isosorbide dinitrate 10 mg tablet 10 mg PO TID 02/22/22 02/22/22 Unknown History lactulose 10 gram/15 mL oral 30 ml PO BID 02/22/22 02/22/22 Unknown History solution (Enulose) paroxetine HCl 20 mg tablet (Paxil) 20 mg PO DAILY 02/22/22 02/22/22 Unknown History risperidone 0.25 mg tablet 0.25 mg PO BEDTIME 02/22/22 02/22/22 Unknown History sevelamer carbonate 2.4 gram oral 2.4 g PO TID 02/22/22 02/22/22 Unknown History powder packet (Renvela) trazodone 50 mg tablet 50 mg PO BEDTIME 02/22/22 02/22/22 Unknown History Physical Exam Vital Signs: Last Vital Signs Temp 97.7 F 02/23/22 15:36 Pulse 90 02/23/22 15:36 Resp 20 02/23/22 15:55 BP 152/71 H 02/23/22 15:36 Pulse Ox 100 02/23/22 15:36 BMI result Body Mass Index 23.8 Const Other: Awake alert confused; nonsensical speech General: cooperative, healthy appearing, no acute distress, alert, awake and ill appearing Nutritional Appearance: average body habitus, well nourished and underweight Orientation/consciousness: oriented to person (intermittently), oriented to place (intermittently) and patient oriented x3 Limitations: no limitations, altered mental status and other limitations (dementia) HEENT Other: Membranes moist Head: Yes normal to inspection and Yes atraumatic Ears: hearing grossly normal bilaterally and external ears normal General nose exam: Normal external nose present, no nasal discharge noted and no epistaxis Face and sinus: Yes normal facial exam, No abrasion and No laceration Mouth: Normal oral and palatal mucosa present, no drooling and no muffled voice Eyes General: appearance normal, both eyes and all related structures Periorbital: periorbital findings normal Eyelids: Yes eyelids normal Conjunctivae: conjunctivae normal Sclerae: sclerae normal Pupils: Equal, round and reactive pupils present EOM: EOMs intact bilaterally Neck Neck: Yes normal visual inspection, Yes full ROM and Yes no lymphadenopathy Chest Chest palpation & inspection: normal inspection of the chest Resp Other: Clear to auscultation bilaterally no rales rhonchi or wheezes Effort & Inspection: normal respiratory effort and able to speak in complete sentences Auscultation: clear to auscultation bilaterally Cardio Other: No S4; positive S1-S2; no S3 murmurs rubs gallops Palpation: normal PMI Rate: regular rate Rhythm: regular rhythm Heart sounds: S1 normal heart sound present, S2 normal heart sound present and no murmurs GI Other: Soft nontender nondistended with normoactive bowel sounds Inspection: Yes normal to inspection Palpation (GI): Soft to palpation, nontender and No hepatosplenomegaly present Auscultation: normal bowel sounds Rectal Exam - Male: Yes deferred Skin General skin exam: no rashes or lesions noted and pallor Neuro General: oriented to person (intermittently), oriented to place (intermittently), patient oriented x3, gait normal and moves all extremities Cranial nerves: Yes Equal, round and reactive pupils present Cognition (Neuro): abnormal cognition (intermittently normal) Motor exam (neuro): 5/5 motor strength present throughout Sensory Exam: Normal double simultaneous stimulation for sensation Coordination: [id number] test normal Pupils: Normal pupillary reactivity/response: bilateral Extrem Other: No edema bilaterally; bruit heard over fistula left upper extremity with good thrill General: Yes normal to inspection, Yes full ROM, Yes capillary refill normal and Yes no pedal edema Psych Appearance: grossly normal Mental Status: mental status grossly normal Affect: normal affect Attitude: cooperative Thought process: Normal thought process present Thought content: Normal thought content present Insight: Good insight present (Psych) Results Lab Results Result Diagrams: 02/23/22 06:32 02/23/22 06:31 Lab results: Chemistry 02/22/22 02/23/22 12:07 06:31 Sodium 136 134 L Potassium 4.8 5.0 Carbon Dioxide 22 20 L BUN 81 H 96 H Creatinine 8.48 H* 9.41 H* Calcium 9.5 8.9 D Hematology 02/22/22 02/23/22 12:07 06:32 WBC 17.4 H 15.9 H Hgb 5.9 L* 8.0 L D Plt Count 201 155 L Urinalysis 02/22/22 23:29 Urine Color YELLOW Urine Appearance TURBID Urine pH 7.0 Ur Specific [place] 1.020 Urine Protein 3+ H Urine Glucose (UA) 100 H Urine Ketones NEG Urine Blood 3+ H Urine Nitrite NEG Ur Leukocyte Esterase 3+ H Urine RBC 0 Urine WBC TNTC H Ur Squamous Epith Cells TRACE Assessment and Plan (1) Anemia: Status: Acute (2) ESRD (end stage renal disease): Status: Acute Plan 66 yo man with ESRD, dialysis dependent presenting with profound anemia, GIB most likely, and elevted troponin with AMS superimposed on baseline cognitive dysfunction. His hg has improved with transfusion. He is not in CHF. Potassium level is normal. Will plan to dialyze him in the morning tomorrow and then get him back on his usual dialysis schedule M W F No heparin with diallysis Track H/h Procedures Date of Service Date of Service: 02/23/22
[2022-02-23 20:07] LABS: Glucose, Whole Blood 216 mg/dL (60-115)
[2022-02-23] MEDS: Atorvastatin Calcium 80 MG TABLET PO (20:29)
[2022-02-23] MEDS: Insulin Glargine,Hum.rec.anlog 100 UNIT/ML 10 ML VIAL 10 UNIT SUBCUT (20:29)
[2022-02-24 03:28] VITALS: BP 131/64; PULSE 90; RESP 18; TEMP 36.6; O2SAT 99
[2022-02-24] MEDS: Pantoprazole Sodium 80 MG in 0.9 % Sodium Chloride 80 ML 10 MG IV ×3 (03:37→23:30)
[2022-02-24] MEDS: cefTRIAXone sodium 1 GM in 0.9 % Sodium Chloride 50 ML IV (03:42)
[2022-02-24 08:59] LABS: Alanine Aminotransferase 20 U/L (0-40); Albumin Level 3.6 g/dL (3.5-5.0); Alkaline Phosphatase 107 U/L (39-117); Aspartate Amino Transferase 18 U/L (5-37); Bilirubin Total 0.6 mg/dL (0.0-1.0); Blood Urea Nitrogen 60 mg/dL (9-16); Calcium 8.9 mg/dL (8.4-10.2); Estimated Glomerular Filt Rate 9; Glucose Random 103 mg/dL (60-115); Total Protein 6.4 g/dL (6.5-8.0)
[2022-02-24 09:15] LABS: Anion Gap 18 (12-20); Carbon Dioxide 23 mmol/L (22-29); Chloride 100 mmol/L (96-108); Potassium 3.5 mmol/L (3.3-5.1); Sodium 137 mmol/L (135-145)
[2022-02-24 11:48] VITALS: BP 139/59; PULSE 84; RESP 18; TEMP 36.9; O2SAT 100
[2022-02-24 11:55] LABS: Glucose, Whole Blood 80 mg/dL (60-115)
--- NOTE | 2022-02-24 12:16 | P.CONCA_ITS ---
History of Present Illness History of Present Illness Date of Service: 02/24/22 Requesting physician: Drew Cunningham Consult reason: other (NSTEMI) Chief complaint: Encephalopathy, Acute GI Bleed anemia, NStemi Narrative: I was consulted to see Juan in cardiology consultation today for elevated troponins with rise and fall consistent with acute myocardial infarction. History was obtained with help of driver wheelchair. Despite the driver wheelchair patient is extremely poor historian. Complains of right infraclavicular sharp pain which is reproducible. Patient does not provide much other history. Currently underwent dialysis. Was admitted with altered mental status and noted to have severe anemia suspected to be due to GI bleed. He also has end-stage renal disease and had missed dialysis session on the day of admission. Also noted to have UTI. He has underlying cognitive dysfunction of unclear etiology. Review of Systems Review of Systems: Yes Unobtainable due to mental status Neurologic: Reports confusion Psychiatric: Psychiatric: Reports confusion [facility] Social History Social History Household Members: Unknown / Unable to assess Housing: Unknown / Unable to assess Do you presently have visiting nurse or other home services: No (unknown) Unable to assess alcohol history related to: Unknown Alcohol intake: former Patient Tobacco Use Status: Former Tobacco user Meds Allergies Allergy/AdvReac Type Severity Reaction Status Date / Time Penicillins [PCN] Allergy Intermediate ITCHING Verified 02/22/22 12:14 Active Medications: Current Medications Acetaminophen (Acetaminophen 325 Mg Tablet) 650 mg PO Q6H PRN PRN Reason: Pain, Mild (Pain Scale 1-3) Atorvastatin Calcium (Atorvastatin Calcium 80 Mg Tablet) 80 mg PO BEDTIME EVA Last Admin: 02/23/22 20:29 Dose: 80 mg Documented by: Bisacodyl (Bisacodyl 5 Mg Tablet.Dr) 5 mg PO DAILY PRN PRN Reason: constipation Dextrose (Dextrose 50 % 25 Gm/50 Ml Syringe) 25 gm IVPUSH Q15M PRN; Protocol PRN Reason: per Hypoglycemia Standing Ord. Docusate Sodium (Docusate Sodium 100 Mg Capsule) 100 mg PO DAILY PRN PRN Reason: Constipation Glucose (Glucose Gel 15 Gm Gel..Gram.) 15 gm PO Q15M PRN; Protocol PRN Reason: per Hypoglycemia Standing Ord. Ceftriaxone Sodium 1 gm/ (Sodium Chloride) 50 mls @ 100 mls/hr IV Q24H [facility], [facility] Last Infusion: 02/24/22 04:21 Dose: Infused Documented by: Pantoprazole Sodium 80 mg/ (Sodium Chloride) 100 mls @ 10 mls/hr IV .Q10H [facility] Last Admin: 02/24/22 03:37 Dose: 8 mg/hr, 10 mls/hr Documented by: Insulin Glargine (Insulin Glargine,Hum.Rec.Anlog 100 Unit/Ml 10 Ml Vial) 10 unit SUBCUT BEDTIME [facility] Last Admin: 02/23/22 20:29 Dose: 10 unit Documented by: Insulin Human Lispro (Insulin Lispro 100 Unit/Ml 3 Ml Vial) 0 unit SUBCUT QIDACHS [facility], [facility]; Protocol Last Admin: 02/24/22 12:05 Dose: Not Given Documented by: Isosorbide Dinitrate (Isosorbide Dinitrate 10 Mg Tablet) 10 mg PO TID [facility]; Protocol Last Admin: 02/24/22 10:31 Dose: Not Given Documented by: Ondansetron HCl (Ondansetron Hcl 4 Mg/2 Ml Vial) 4 mg IVPUSH Q8H PRN PRN Reason: Nausea and Vomiting Pharmacy Consult (Consult Rx Perform Med Rec) 1 each MISCELLANE ONCE PRN PRN Reason: Consult order Sevelamer Carbonate (Sevelamer Carbonate Powder 800 Mg Powd.Pack) 2,400 mg PO T ID [facility] Last Admin: 02/24/22 10:32 Dose: Not Given Documented by: Sodium Chloride (0.9 % Sodium Chloride Flush 3 Ml Syringe) 3 ml IVFLUSH QSHIFT [facility] Last Admin: 02/24/22 10:31 Dose: Not Given Documented by: Vitamin D (Cholecalciferol (Vitamin D3) 25 Mcg Tablet) 50 mcg PO DAILY [facility] Last Admin: 02/23/22 09:32 Dose: 50 mcg Documented by: Home Medications Medication Instructions Recorded Confirmed Last Taken Type aspirin 81 mg chewable tablet 81 mg PO DAILY 02/22/22 02/22/22 Unknown History atorvastatin 80 mg tablet 80 mg PO BEDTIME 02/22/22 02/22/22 Unknown History bisacodyl 5 mg tablet,delayed 1 tab PO DAILY PRN 02/22/22 02/22/22 Unknown History release (Dulcolax (bisacodyl)) cholecalciferol (vitamin D3) 50 50 mcg PO DAILY 02/22/22 02/22/22 Unknown History mcg (2,000 unit) tablet clopidogrel 75 mg tablet 75 mg PO SUMOWEFR 02/22/22 02/22/22 Unknown History insulin glargine 100 unit/mL (3 10 unit SUBCUT BEDTIME 02/22/22 02/22/22 Unknown History mL) subcutaneous pen (Lantus Solostar U-100 Insulin) insulin lispro 100 unit/mL 1 sliding scale dose SUBCUT 02/22/22 02/22/22 Unknown History subcutaneous solution (Humalog USEASDIRECTD U-100 Insulin) isosorbide dinitrate 10 mg tablet 10 mg PO TID 02/22/22 02/22/22 Unknown History lactulose 10 gram/15 mL oral 30 ml PO BID 02/22/22 02/22/22 Unknown History solution (Enulose) paroxetine HCl 20 mg tablet (Paxil) 20 mg PO DAILY 02/22/22 02/22/22 Unknown History risperidone 0.25 mg tablet 0.25 mg PO BEDTIME 02/22/22 02/22/22 Unknown History sevelamer carbonate 2.4 gram oral 2.4 g PO TID 02/22/22 02/22/22 Unknown History powder packet (Renvela) trazodone 50 mg tablet 50 mg PO BEDTIME 02/22/22 02/22/22 Unknown History Physical Exam Vital Signs: Vital Signs: Last Vital Signs Temp 98.4 F 02/24/22 11:48 Pulse 84 02/24/22 11:48 Resp 18 02/24/22 11:48 BP 139/59 L 02/24/22 11:48 Pulse Ox 100 02/24/22 11:48 BMI result Body Mass Index 23.8 Const: General: cooperative, comfortable, alert, awake, confusion and ill appearing Orientation/consciousness: confusion HEENT: Head: Yes normocephalic and Yes atraumatic Neck: Neck: Yes trachea midline and Yes supple Resp: Effort & Inspection: decreased respiratory effort Auscultation: clear to auscultation bilaterally Cardio: Jugular venous distension: no JVD Rate: regular rate Rhythm: regular rhythm Heart sounds: S1 normal heart sound present, S2 normal heart sound present, no click, no gallops and no murmurs Skin: General skin exam: no rashes or lesions noted and ecchymosis Neuro: General: confusion Extrem: General: Yes no clubbing, cyanosis or edema Objective Labs and Meds Result diagrams: 02/23/22 06:32 02/24/22 07:57 Lab results: Laboratory Results - last 24 hr 02/22/22 02/22/22 02/22/22 12:08 12:11 15:35 O2 Saturation ABG pH at Pt Temp ABG pCO2 at Pt Temp ABG pO2 at Pt Temp ABG HCO3 ABG Base Excess (Actual) VBG pH 7.30 L VBG pCO2 57 VBG pO2 70 VBG HCO3 28 H VBG O2 Saturation 88.0 VBG Base Excess 1.7 Sodium Potassium Chloride Carbon Dioxide Anion Gap BUN Creatinine Estim Creat Clear Calc Estimated GFR POC Glucose 194 H Random Glucose Lactic Acid F/U @ 2Hr 2.9 H* Lactic Acid F/U @ 4Hr Calcium Total Bilirubin AST ALT Alkaline Phosphatase Troponin I High Sens Total Protein Albumin 02/22/22 02/22/22 02/23/22 21:32 22:26 12:18 O2 Saturation 97.0 ABG pH at Pt Temp 7.39 ABG pCO2 at Pt Temp 35 ABG pO2 at Pt Temp 98 ABG HCO3 21 L ABG Base Excess (Actual) -2.8 VBG pH VBG pCO2 VBG pO2 VBG HCO3 VBG O2 Saturation VBG Base Excess Sodium Potassium Chloride Carbon Dioxide Anion Gap BUN Creatinine Estim Creat Clear Calc Estimated GFR POC Glucose 224 H Random Glucose Lactic Acid F/U @ 2Hr Lactic Acid F/U @ 4Hr 2.2 H* Calcium Total Bilirubin AST ALT Alkaline Phosphatase Troponin I High Sens Total Protein Albumin 02/23/22 02/23/22 02/23/22 12:48 14:07 16:01 O2 Saturation ABG pH at Pt Temp ABG pCO2 at Pt Temp ABG pO2 at Pt Temp ABG HCO3 ABG Base Excess (Actual) VBG pH VBG pCO2 VBG pO2 VBG HCO3 VBG O2 Saturation VBG Base Excess Sodium Potassium Chloride Carbon Dioxide Anion Gap BUN Creatinine Estim Creat Clear Calc Estimated GFR POC Glucose 190 H 169 H Random Glucose Lactic Acid F/U @ 2Hr Lactic Acid F/U @ 4Hr Calcium Total Bilirubin AST ALT Alkaline Phosphatase Troponin I High Sens 8592.5 H* Total Protein Albumin 02/23/22 02/24/22 02/24/22 19:57 07:57 07:57 O2 Saturation ABG pH at Pt Temp ABG pCO2 at Pt Temp ABG pO2 at Pt Temp ABG HCO3 ABG Base Excess (Actual) VBG pH VBG pCO2 VBG pO2 VBG HCO3 VBG O2 Saturation VBG Base Excess Sodium 137 Potassium 3.5 D Chloride 100 Carbon Dioxide 23 Anion Gap 18 BUN 60 H Creatinine 6.28 H* Estim Creat Clear Calc 9.0 Estimated GFR 9 POC Glucose 216 H Random Glucose 103 D Lactic Acid F/U @ 2Hr Lactic Acid F/U @ 4Hr Calcium 8.9 Total Bilirubin 0.6 AST 18 D ALT 20 Alkaline Phosphatase 107 D Troponin I High Sens 6177.3 H* Total Protein 6.4 L Albumin 3.6 02/24/22 11:52 O2 Saturation ABG pH at Pt Temp ABG pCO2 at Pt Temp ABG pO2 at Pt Temp ABG HCO3 ABG Base Excess (Actual) VBG pH VBG pCO2 VBG pO2 VBG HCO3 VBG O2 Saturation VBG Base Excess Sodium Potassium Chloride Carbon Dioxide Anion Gap BUN Creatinine Estim Creat Clear Calc Estimated GFR POC Glucose 80 Random Glucose Lactic Acid F/U @ 2Hr Lactic Acid F/U @ 4Hr Calcium Total Bilirubin AST ALT Alkaline Phosphatase Troponin I High Sens Total Protein Albumin Assessment and Plan (1) NSTEMI (non-ST elevated myocardial infarction): Status: Acute NSTEMI secondary to severe anemia and other acute medical illness including UTI. Most likely cause for his encephalopathy as including metabolic abnormality due to missing his dialysis. He has no cardiac symptoms to report although this is very difficult to assess. Definitely has evidence of EKG changes suggestive ischemia. However given his inability to understand and significant cognitive dysfunction not sure if any further aggressive measures would be taken. This needs to be discussed with his family. I would treat him with medical therapy w ith metoprolol and statins. Cannot be on aspirin anticoagulant due to his recent GI bleed and severe anemia. Continue aggressive control of blood pressure. Will prognosis an long run is poor given his significant medical issues and recent non-STEMI. Will sign of the case. Please feel free to contact us thank you Procedures Date of Service Date of Service: 02/24/22
--- NOTE | 2022-02-24 12:24 | HO.PM.IMPN ---
Subjective Subjective Date of Service: 02/24/22 Interval History: Still confused difficult to converse with;HD today Review of Systems Unable to obtain secondary to confusion Physical Exam Vital Signs: Vital Signs: Last Vital Signs Temp 98.4 F 02/24/22 11:48 Pulse 84 02/24/22 11:48 Resp 18 02/24/22 11:48 BP 139/59 L 02/24/22 11:48 Pulse Ox 100 02/24/22 11:48 BMI result Body Mass Index 23.8 Const: Other: Awake alert confused; nonsensical speech HEENT: Other: Membranes moist Resp: Other: Clear to auscultation bilaterally no rales rhonchi or wheezes Cardio: Other: No S4; positive S1-S2; no S3 murmurs rubs gallops GI: Other: Soft nontender nondistended with normoactive bowel sounds Extrem: Other: No edema bilaterally; bruit heard over fistula left upper extremity Objective Data Active Medications Acetaminophen (Acetaminophen 325 Mg Tablet) 650 mg PO Q6H PRN PRN Reason: Pain, Mild (Pain Scale 1-3) Atorvastatin Calcium (Atorvastatin Calcium 80 Mg Tablet) 80 mg PO BEDTIME [facility] Last Admin: 02/23/22 20:29 Dose: 80 mg Documented by: ANTANGÉLICA Bisacodyl (Bisacodyl 5 Mg Tablet.Dr) 5 mg PO DAILY PRN PRN Reason: constipation Dextrose (Dextrose 50 % 25 Gm/50 Ml Syringe) 25 gm IVPUSH Q15M PRN; Protocol PRN Reason: per Hypoglycemia Standing Ord. Docusate Sodium (Docusate Sodium 100 Mg Capsule) 100 mg PO DAILY PRN PRN Reason: Constipation Glucose (Glucose Gel 15 Gm Gel..Gram.) 15 gm PO Q15M PRN; Protocol PRN Reason: per Hypoglycemia Standing Ord. Ceftriaxone Sodium 1 gm/ (Sodium Chloride) 50 mls @ 100 mls/hr IV Q24H [facility] Last Infusion: 02/24/22 04:21 Dose: 0 mls/hr Documented by: BOOM Pantoprazole Sodium 80 mg/ (Sodium Chloride) 100 mls @ 10 mls/hr IV .Q10H [facility] Last Admin: 02/24/22 03:37 Dose: 8 mg/hr, 10 mls/hr Documented by: BOOM Insulin Glargine (Insulin Glargine,Hum.Rec.Anlog 100 Unit/Ml 10 Ml Vial) 10 unit SUBCUT BEDTIME [facility] Last Admin: 02/23/22 20:29 Dose: 10 unit Documented by: BOOM Insulin Human Lispro (Insulin Lispro 100 Unit/Ml 3 Ml Vial) 0 unit SUBCUT QIDACHS [facility]; Protocol Last Admin: 02/24/22 12:05 Dose: Not Given Documented by: GISELA Non-Admin Reason: No Insulin Coverage Isosorbide Dinitrate (Isosorbide Dinitrate 10 Mg Tablet) 10 mg PO TID [facility]; Protocol Last Admin: 02/24/22 10:31 Dose: Not Given Documented by: GISELA Non-Admin Reason: Given in Dialysis Ondansetron HCl (Ondansetron Hcl 4 Mg/2 Ml Vial) 4 mg IVPUSH Q8H PRN PRN Reason: Nausea and Vomiting Pharmacy Consult (Consult Rx Perform Med Rec) 1 each MISCELLANE ONCE PRN PRN Reason: Consult order Sevelamer Carbonate (Sevelamer Carbonate Powder 800 Mg Powd.Pack) 2,400 mg PO TID [facility] Last Admin: 02/24/22 10:32 Dose: Not Given Documented by: GISELA Non-Admin Reason: Given in Dialysis Sodium Chloride (0.9 % Sodium Chloride Flush 3 Ml Syringe) 3 ml IVFLUSH QSHIFT [facility] Last Admin: 02/24/22 10:31 Dose: Not Given Documented by: GISELA Non-Admin Reason: Off unit: Dialysis Vitamin D (Cholecalciferol (Vitamin D3) 25 Mcg Tablet) 50 mcg PO DAILY [facility] Last Admin: 02/23/22 09:32 Dose: 50 mcg Documented by: ADRIA Labs CBC & Chem 7: 02/23/22 06:32 02/24/22 07:57 Labs: Laboratory Results - last 24 hr 02/22/22 02/22/22 02/22/22 12:08 12:11 15:35 O2 Saturation ABG pH at Pt Temp ABG pCO2 at Pt Temp ABG pO2 at Pt Temp ABG HCO3 ABG Base Excess (Actual) VBG pH 7.30 L VBG pCO2 57 VBG pO2 70 VBG HCO3 28 H VBG O2 Saturation 88.0 VBG Base Excess 1.7 Anion Gap Estim Creat Clear Calc Estimated GFR POC Glucose 194 H Random Glucose Lactic Acid F/U @ 2Hr 2.9 H* Lactic Acid F/U @ 4Hr Calcium Total Bilirubin AST ALT Alkaline Phosphatase Troponin I High Sens Total Protein Albumin 02/22/22 02/22/22 02/23/22 21:32 22:26 12:18 O2 Saturation 97.0 ABG pH at Pt Temp 7.39 ABG pCO2 at Pt Temp 35 ABG pO2 at Pt Temp 98 ABG HCO3 21 L ABG Base Excess (Actual) -2.8 VBG pH VBG pCO2 VBG pO2 VBG HCO3 VBG O2 Saturation VBG Base Excess Anion Gap Estim Creat Clear Calc Estimated GFR POC Glucose 224 H Random Glucose Lactic Acid F/U @ 2Hr Lactic Acid F/U @ 4Hr 2.2 H* Calcium Total Bilirubin AST ALT Alkaline Phosphatase Troponin I High Sens Total Protein Albumin 02/23/22 02/23/22 02/23/22 12:48 14:07 16:01 O2 Saturation ABG pH at Pt Temp ABG pCO2 at Pt Temp ABG pO2 at Pt Temp ABG HCO3 ABG Base Excess (Actual) VBG pH VBG pCO2 VBG pO2 VBG HCO3 VBG O2 Saturation VBG Base Excess Anion Gap Estim Creat Clear Calc Estimated GFR POC Glucose 190 H 169 H Random Glucose Lactic Acid F/U @ 2Hr Lactic Acid F/U @ 4Hr Calcium Total Bilirubin AST ALT Alkaline Phosphatase Troponin I High Sens 8592.5 H* Total Protein Albumin 02/23/22 02/24/22 02/24/22 19:57 07:57 07:57 O2 Saturation ABG pH at Pt Temp ABG pCO2 at Pt Temp ABG pO2 at Pt Temp ABG HCO3 ABG Base Excess (Actual) VBG pH VBG pCO2 VBG pO2 VBG HCO3 VBG O2 Saturation VBG Base Excess Anion Gap 18 Estim Creat Clear Calc 9.0 Estimated GFR 9 POC Glucose 216 H Random Glucose 103 D Lactic Acid F/U @ 2Hr Lactic Acid F/U @ 4Hr Calcium 8.9 Total Bilirubin 0.6 AST 18 D ALT 20 Alkaline Phosphatase 107 D Troponin I High Sens 6177.3 H* Total Protein 6.4 L Albumin 3.6 02/24/22 11:52 O2 Saturation ABG pH at Pt Temp ABG pCO2 at Pt Temp ABG pO2 at Pt Temp ABG HCO3 ABG Base Excess (Actual) VBG pH VBG pCO2 VBG pO2 VBG HCO3 VBG O2 Saturation VBG Base Excess Anion Gap Estim Creat Clear Calc Estimated GFR POC Glucose 80 Random Glucose Lactic Acid F/U @ 2Hr Lactic Acid F/U @ 4Hr Calcium Total Bilirubin AST ALT Alkaline Phosphatase Troponin I High Sens Total Protein Albumin Microbiology Microbiology Results: Microbiology 02/22/22 00:00 Urine Culture - Final Urine Catheterized - Santos Catheter No growth. 02/22/22 15:35 Blood Culture - Preliminary Blood - Venous No growth after 24 hours. 02/22/22 12:07 Blood Culture - Preliminary Blood - Venous No growth after 24 hours. Assessment and Plan (1) Encephalopathy: Status: Acute (2) Anemia: Status: Acute (3) NSTEMI (non-ST elevated myocardial infarction): Status: Acute (4) ESRD (end stage renal disease): Status: Acute Plan 66-year-old male with past medical history of ESRD on dialysis, Presents to the hospital with altered mental status found to have multiple complications as below 1.Encephalopathy - resolving; all cultures negative -D/C antibiotics 2.Anemia -good response to transfusion; follow CBCs daily -continue Pantoprazole drip x 24 hrs -follow CBC in am -GI to scope when cleared from Cards [facility] 3. NSTEMI -likely type 2 secondary to demand in the setting of significant anemia -EKG shows ST depressions in lateral leads;Trops peaked -hold Plavix/anticoag 4.ESRD on HD -due for HD -consult renal DVT prophylaxis: SCDs Will require at least 2-3 additional midnights going forward for stabilization of hemoglobin and verification of an NSTEMI by Cardiology and probable endoscopy by GI once cleared by Cardiology Quality Stroke Does the patient have a stroke diagnosis?: No VTE Prior VTE?: No VTE Risk Level:: Medical - moderate - high VTE Device Contraindication: N/A - Device Ordered VTE Drug Contraindication: Treatment Not Indicated
--- NOTE | 2022-02-24 13:16 | P.PNNP_ITS ---
Subjective Subjective Date of Service: 02/24/22 Principal diagnosis: ESRD Interval history: Still confused difficult to converse with;HD today Physical Exam Vital Signs: Vital Signs: Last Vital Signs Temp 98.4 F 02/24/22 11:48 Pulse 84 02/24/22 11:48 Resp 18 02/24/22 11:48 BP 139/59 L 02/24/22 11:48 Pulse Ox 100 02/24/22 11:48 BMI result Body Mass Index 23.8 Const: Other: Awake alert confused; nonsensical speech General: cooperative, healthy appearing, comfortable, no acute distress, alert, awake, confusion and ill appearing Nutritional Appearance: average body habitus, well nourished and underweight Orientation/consciousness: oriented to person (intermittently), oriented to place (intermittently), patient oriented x3 and confusion Limitat ions: no limitations, altered mental status and other limitations (dementia) HEENT: Other: Membranes moist Head: Yes normal to inspection, Yes normocephalic and Yes atraumatic Ears: hearing grossly normal bilaterally and external ears normal General nose exam: Normal external nose present, no nasal discharge noted and no epistaxis Face and sinus: Yes normal facial exam, No abrasion and No laceration Mouth: Normal oral and palatal mucosa present, no drooling and no muffled voice Eyes: General: appearance normal, both eyes and all related structures Periorbital: periorbital findings normal Eyelids: Yes eyelids normal Conjunctivae: conjunctivae normal Sclerae: sclerae normal Pupils: Equal, round and reactive pupils present EOM: EOMs intact bilaterally Neck: Neck: Yes normal visual inspection, Yes full ROM, Yes no lymphadenopathy, Yes trachea midline and Yes supple Chest: Chest palpation & inspection: normal inspection of the chest Resp: Other: Clear to auscultation bilaterally no rales rhonchi or wheezes Effort & Inspection: normal respiratory effort, able to speak in complete sentences and decreased respiratory effort Auscultation: clear to auscultation bilaterally Cardio: Other: No S4; positive S1-S2; no S3 murmurs rubs gallops Jugular venous distension: no JVD Palpation: normal PMI Rate: regular rate Rhythm: regular rhythm Heart sounds: S1 normal heart sound present, S2 normal heart sound present, no click, no gallops and no murmurs GI: Other: Soft nontender nondistended with normoactive bowel sounds Inspection: Yes normal to inspection Palpation (GI): Soft to palpation, nontender and No hepatosplenomegaly present Auscultation: normal bowel sounds Rectal Exam - Male: Yes deferred Skin: General skin exam: no rashes or lesions noted, ecchymosis and pallor Neuro: General: oriented to person (intermittently), oriented to place (intermittently), patient oriented x3, gait normal, moves all extremities and confusion Cranial nerves: Yes Equal, round and reactive pupils present Cognition (Neuro): abnormal cognition (intermittently normal) Motor exam (neuro): 5/5 motor strength present throughout Sensory Exam: Normal double simultaneous stimulation for sensation Coordination: [id number] test normal Pupils: Normal pupillary reactivity/response: bilateral Extrem: Other: No edema bilaterally; bruit heard over fistula left upper extremity General: Yes normal to inspection, Yes full ROM, Yes capillary refill normal, Yes no clubbing, cyanosis or edema and Yes no pedal edema Psych: Appearance: grossly normal Mental Status: mental status grossly normal Affect: normal affect Attitude: cooperative Thought process: Normal thought process present Thought content: Normal thought content present Insight: Good insight present (Psych) Objective Data Labs CBC & Chem 7: 02/23/22 06:32 02/24/22 07:57 Labs: Laboratory Results - last 24 hr 02/22/22 02/22/22 02/22/22 12:08 12:11 15:35 O2 Saturation ABG pH at Pt Temp ABG pCO2 at Pt Temp ABG pO2 at Pt Temp ABG HCO3 ABG Base Excess (Actual) VBG pH 7.30 L VBG pCO2 57 VBG pO2 70 VBG HCO3 28 H VBG O2 Saturation 88.0 VBG Base Excess 1.7 Sodium Potassium Chloride Carbon Dioxide Anion Gap BUN Creatinine Estim Creat Clear Calc Estimated GFR POC Glucose 194 H Random Glucose Lactic Acid F/U @ 2Hr 2.9 H* Lactic Acid F/U @ 4Hr Calcium Total Bilirubin AST ALT Alkaline Phosphatase Troponin I High Sens Total Protein Albumin 02/22/22 02/22/22 02/23/22 21:32 22:26 12:48 O2 Saturation 97.0 ABG pH at Pt Temp 7.39 ABG pCO2 at Pt Temp 35 ABG pO2 at Pt Temp 98 ABG HCO3 21 L ABG Base Excess (Actual) -2.8 VBG pH VBG pCO2 VBG pO2 VBG HCO3 VBG O2 Saturation VBG Base Excess Sodium Potassium Chloride Carbon Dioxide Anion Gap BUN Creatinine Estim Creat Clear Calc Estimated GFR POC Glucose Random Glucose Lactic Acid F/U @ 2Hr Lactic Acid F/U @ 4Hr 2.2 H* Calcium Total Bilirubin AST ALT Alkaline Phosphatase Troponin I High Sens 8592.5 H* Total Protein Albumin 02/23/22 02/23/22 02/23/22 14:07 16:01 19:57 O2 Saturation ABG pH at Pt Temp ABG pCO2 at Pt Temp ABG pO2 at Pt Temp ABG HCO3 ABG Base Excess (Actual) VBG pH VBG pCO2 VBG pO2 VBG HCO3 VBG O2 Saturation VBG Base Excess Sodium Potassium Chloride Carbon Dioxide Anion Gap BUN Creatinine Estim Creat Clear Calc Estimated GFR POC Glucose 190 H 169 H 216 H Random Glucose Lactic Acid F/U @ 2Hr Lactic Acid F/U @ 4Hr Calcium Total Bilirubin AST ALT Alkaline Phosphatase Troponin I High Sens Total Protein Albumin 02/24/22 02/24/22 02/24/22 07:57 07:57 11:52 O2 Saturation ABG pH at Pt Temp ABG pCO2 at Pt Temp ABG pO2 at Pt Temp ABG HCO3 ABG Base Excess (Actual) VBG pH VBG pCO2 VBG pO2 VBG HCO3 VBG O2 Saturation VBG Base Excess Sodium 137 Potassium 3.5 D Chloride 100 Carbon Dioxide 23 Anion Gap 18 BUN 60 H Creatinine 6.28 H* Estim Creat Clear Calc 9.0 Estimated GFR 9 POC Glucose 80 Random Glucose 103 D Lactic Acid F/U @ 2Hr Lactic Acid F/U @ 4Hr Calcium 8.9 Total Bilirubin 0.6 AST 18 D ALT 20 Alkaline Phosphatase 107 D Troponin I High Sens 6177.3 H* Total Protein 6.4 L Albumin 3.6 Microbiology Microbiology Results: Microbiology 02/22/22 00:00 Urine Catheterized - Santos Catheter Urine Culture - Final No growth. 02/22/22 15:35 Blood - Venous Blood Culture - Preliminary No growth after 24 hours. 02/22/22 12:07 Blood - Venous Blood Culture - Preliminary No growth after 24 hours. Procedures Date of Service Date of Service: 02/24/22 Assessment & Plan Assessment and plan (1) Anemia: Status: Acute (2) ESRD (end stage renal disease): Status: Acute Plan 66-year-old male with past medical history of ESRD on dialysis, Presents to the hospital with altered mental status found to have multiple complications as below 1.Encephalopathy - resolving; all cultures negative -D/C antibiotics 2.Anemia -good response to transfusion; Hg better, likely occult GIB -continue Pantoprazole drip x 24 hrs -follow CBC in am -Endoscopy 4.ESRD on HD -HD today ordered-no heparin Time Spent With Patient Time: Total time spent is greater than 50% in coordination of care (as documented) at patient's floor/unit and/or counseling patient: Progress Note: Quality Stroke Does the patient have a stroke diagnosis?: No
[2022-02-24] MEDS: Cholecalciferol (Vitamin D3) 25 MCG TABLET 50 MCG PO (14:04)
[2022-02-24] MEDS: Sevelamer Carbonate Powder 800 MG POWD.PACK 2400 MG PO ×2 (14:04→20:26)
[2022-02-24] MEDS: Isosorbide Dinitrate 10 MG TABLET PO ×2 (14:04→20:25)
[2022-02-24 15:36] VITALS: BP 131/79; PULSE 87; RESP 18; TEMP 37.1; O2SAT 98
[2022-02-24 15:39] LABS: Glucose, Whole Blood 166 mg/dL (60-115)
[2022-02-24] MEDS: Insulin Lispro 100 UNIT/ML 3 ML VIAL SUBCUT (16:35)
[2022-02-24] MEDS: 0.9 % Sodium Chloride Flush 3 ML SYRINGE IVFLUSH ×2 (16:36→20:26)
[2022-02-24 19:30] VITALS: BP 127/69; PULSE 87; RESP 19; TEMP 37.1; O2SAT 97
[2022-02-24 20:10] LABS: Glucose, Whole Blood 129 mg/dL (60-115)
[2022-02-24] MEDS: Insulin Glargine,Hum.rec.anlog 100 UNIT/ML 10 ML VIAL 10 UNIT SUBCUT (20:25)
[2022-02-24] MEDS: Atorvastatin Calcium 80 MG TABLET PO (20:25)
[2022-02-24 23:23] VITALS: BP 100/53; PULSE 80; RESP 20; TEMP 37; O2SAT 95
[2022-02-25 04:00] VITALS: BP 121/60; PULSE 73; RESP 18; TEMP 37.1; O2SAT 98
[2022-02-25] MEDS: cefTRIAXone sodium 1 GM in 0.9 % Sodium Chloride 50 ML IV (05:18)
[2022-02-25 06:00] VITALS: BMI 24.5
[2022-02-25 07:25] LABS: MANUAL DIFF FLAG NO
[2022-02-25 07:31] LABS: Basophils Percent Auto 0.4 % (0-2); Eosinophils Absolute Auto 0.4 X10*3/uL (0.0-0.4); Eosinophils Percent Auto 3.4 % (0-4); Hematocrit 24.4 % (42.0-52.0); Hemoglobin 7.9 g/dl (14.0-18.0); Imm Gran Abs Auto 0.05 X10*3/uL (0.00-0.03); Imm Gran Pct Auto 0.5 % (0.0-0.4); Lymphocytes Absolute Auto 0.9 X10*3/uL (1.2-4.9); Lymphocytes Percent Auto 8.8 % (20-40); Mean Corpuscular HGB Conc 32.4 g/dl (31.0-36.0); Mean Corpuscular Volume 98.8 fL (80.0-98.0); Mean Platelet Volume 11.2 fL (9.4-12.4); Monocytes Absolute Auto 1.1 X10*3/uL (0.1-1.2); Monocytes Percent Auto 10.7 % (2-11); Neutrophils Absolute Auto 7.8 x10*3/uL (2.0-8.3); Neutrophils Percent Auto 76.2 % (45-73); Platelet Count 189 X10*3/uL (160-400); Red Blood Count 2.47 X10*6/uL (4.60-5.80); White Blood Count 10.2 X10*3/uL (4.8-10.8)
[2022-02-25 07:32] LABS: Glucose, Whole Blood 86 mg/dL (60-115)
[2022-02-25 08:00] VITALS: BP 131/60; PULSE 67; RESP 20; TEMP 36.2; O2SAT 97
[2022-02-25 08:48] LABS: Alanine Aminotransferase 15 U/L (0-40); Alkaline Phosphatase 83 U/L (39-117); Anion Gap 16 (12-20); Aspartate Amino Transferase 13 U/L (5-37); Bilirubin Total 0.5 mg/dL (0.0-1.0); Blood Urea Nitrogen 47 mg/dL (9-16); Calcium 8.8 mg/dL (8.4-10.2); Carbon Dioxide 23 mmol/L (22-29); Chloride 99 mmol/L (96-108); Estimated Glomerular Filt Rate 8; Glucose Fasting 93 mg/dL (60-99); Potassium 3.9 mmol/L (3.3-5.1); Sodium 134 mmol/L (135-145); Total Protein 5.6 g/dL (6.5-8.0)
[2022-02-25] MEDS: Isosorbide Dinitrate 10 MG TABLET PO ×3 (09:42→21:50)
[2022-02-25] MEDS: Cholecalciferol (Vitamin D3) 25 MCG TABLET 50 MCG PO (09:42)
[2022-02-25] MEDS: Sevelamer Carbonate Powder 800 MG POWD.PACK 2400 MG PO ×3 (09:42→21:50)
[2022-02-25] MEDS: Pantoprazole Sodium 80 MG in 0.9 % Sodium Chloride 80 ML 10 MG IV (09:42)
[2022-02-25] MEDS: 0.9 % Sodium Chloride Flush 3 ML SYRINGE IVFLUSH ×3 (09:42→21:56)
--- NOTE | 2022-02-25 10:06 | MHC.CM.PN ---
Interviewed patient's brother, Dani ([phone]) via medical interpreter. Dani indicates patient is a LTC resident of [facility], and NOT [facility]. Dani states plan is to return to [facility]; he confirmed address of SNF as [address] [place] [address] , [place] [address]. Requested copy of HCP, Dani does not have this document. Reached out to [facility] via [employer] in an attempt at obtaining this for [facility] records and decision-making patterns for patient's hospital course. D/C plan is to return to [facility] for LTC as per Dani. CM to follow.
[2022-02-25 11:03] LABS: Glucose, Whole Blood 193 mg/dL (60-115)
[2022-02-25] MEDS: Insulin Lispro 100 UNIT/ML 3 ML VIAL SUBCUT ×2 (11:22→21:56)
--- NOTE | 2022-02-25 11:27 | HO.PM.IMPN ---
Subjective Subjective Date of Service: 02/25/22 Interval History: Still confused difficult to converse with;HD today Review of Systems Unable to obtain secondary to confusion Physical Exam Vital Signs: Vital Signs: Last Vital Signs Temp 97.1 F 02/25/22 08:00 Pulse 67 02/25/22 08:00 Resp 20 02/25/22 08:00 BP 131/60 02/25/22 08:00 Pulse Ox 97 02/25/22 08:00 BMI result Body Mass Index 23.8 Const: Other: Awake alert confused; nonsensical speech HEENT: Other: Membranes moist Resp: Other: Clear to auscultation bilaterally no rales rhonchi or wheezes Cardio: Other: No S4; positive S1-S2; no S3 murmurs rubs gallops GI: Other: Soft nontender nondistended with normoactive bowel sounds Extrem: Other: No edema bilaterally; bruit heard over fistula left upper extremity Objective Data Active Medications Acetaminophen (Acetaminophen 325 Mg Tablet) 650 mg PO Q6H PRN PRN Reason: Pain, Mild (Pain Scale 1-3) Atorvastatin Calcium (Atorvastatin Calcium 80 Mg Tablet) 80 mg PO BEDTIME [facility] Last Admin: 02/24/22 20:25 Dose: 80 mg Documented by: BOOM Bisacodyl (Bisacodyl 5 Mg Tablet.Dr) 5 mg PO DAILY PRN PRN Reason: constipation Dextrose (Dextrose 50 % 25 Gm/50 Ml Syringe) 25 gm IVPUSH Q15M PRN; Protocol PRN Reason: per Hypoglycemia Standing Ord. Docusate Sodium (Docusate Sodium 100 Mg Capsule) 100 mg PO DAILY PRN PRN Reason: Constipation Glucose (Glucose Gel 15 Gm Gel..Gram.) 15 gm PO Q15M PRN; Protocol PRN Reason: per Hypoglycemia Standing Ord. Ceftriaxone Sodium 1 gm/ (Sodium Chloride) 50 mls @ 100 mls/hr IV Q24H [facility] Last Infusion: 02/25/22 05:57 Dose: 0 mls/hr Documented by: BOOM Insulin Glargine (Insulin Glargine,Hum.Rec.Anlog 100 Unit/Ml 10 Ml Vial) 10 unit SUBCUT BEDTIME [facility] Last Admin: 02/24/22 20:25 Dose: 10 unit Documented by: OBOM Insulin Human Lispro (Insulin Lispro 100 Unit/Ml 3 Ml Vial) 0 unit SUBCUT QIDACHS [facility]; Protocol Last Admin: 02/25/22 11:22 Dose: 2 unit Documented by: GISELA Isosorbide Dinitrate (Isosorbide Dinitrate 10 Mg Tablet) 10 mg PO TID [facility]; Protocol Last Admin: 02/25/22 09:42 Dose: 10 mg Documented by: GISELA Omeprazole (Omeprazole 40 Mg Capsule.Dr) 40 mg PO BID@0630,1630 [facility] Ondansetron HCl (Ondansetron Hcl 4 Mg/2 Ml Vial) 4 mg IVPUSH Q8H PRN PRN Reason: Nausea and Vomiting Pharmacy Consult (Consult Rx Perform Med Rec) 1 each MISCELLANE ONCE PRN PRN Reason: Consult order Sevelamer Carbonate (Sevelamer Carbonate Powder 800 Mg Powd.Pack) 2,400 mg PO TID [facility] Last Admin: 02/25/22 09:42 Dose: 2,400 mg Documented by: GISELA Sodium Chloride (0.9 % Sodium Chloride Flush 3 Ml Syringe) 3 ml IVFLUSH QSHIFT [facility] Last Admin: 02/25/22 09:42 Dose: 3 ml Documented by: GISELA Vitamin D (Cholecalciferol (Vitamin D3) 25 Mcg Tablet) 50 mcg PO DAILY [facility] Last Admin: 02/25/22 09:42 Dose: 50 mcg Documented by: GISELA Labs CBC & Chem 7: 02/25/22 06:57 02/25/22 06:57 Labs: Laboratory Results - last 24 hr 02/22/22 02/22/22 02/23/22 12:07 12:07 06:31 Hgb 5.9 L* MCV MCH MCHC RDW Plt Count MPV Immature Gran % (Auto) Neut % (Auto) Lymph % (Auto) [place] % (Auto) Eos % (Auto) Baso % (Auto) Lymph # (Auto) [place] # (Auto) Eos # (Auto) Baso # (Auto) Abs Immat Gran (auto) Absolute Neuts (auto) Absolute Nucleated RBC Nucleated RBC % (auto) Anion Gap Creatinine 8.48 H* 9.41 H* Estim Creat Clear Calc Estimated GFR POC Glucose Fasting Glucose Calcium Total Bilirubin AST ALT Alkaline Phosphatase Troponin I High Sens Total Protein Albumin 02/23/22 02/24/22 02/24/22 06:32 07:57 11:52 Hgb 8.0 L D MCV MCH MCHC RDW Plt Count MPV Immature Gran % (Auto) Neut % (Auto) Lymph % (Auto) [place] % (Auto) Eos % (Auto) Baso % (Auto) Lymph # (Auto) [place] # (Auto) Eos # (Auto) Baso # (Auto) Abs Immat Gran (auto) Absolute Neuts (auto) Absolute Nucleated RBC Nucleated RBC % (auto) Anion Gap Creatinine 6.28 H* Estim Creat Clear Calc Estimated GFR POC Glucose 80 Fasting Glucose Calcium Total Bilirubin AST ALT Alkaline Phosphatase Troponin I High Sens Total Protein Albumin 02/24/22 02/24/22 02/25/22 15:34 20:05 06:57 Hgb 7.9 L MCV 98.8 H MCH 32.0 MCHC 32.4 RDW 15.0 Plt Count 189 MPV 11.2 Immature Gran % (Auto) 0.5 H Neut % (Auto) 76.2 H Lymph % (Auto) 8.8 L [place] % (Auto) 10.7 Eos % (Auto) 3.4 Baso % (Auto) 0.4 Lymph # (Auto) 0.9 L [place] # (Auto) 1.1 Eos # (Auto) 0.4 Baso # (Auto) 0.0 Abs Immat Gran (auto) 0.05 H Absolute Neuts (auto) 7.8 Absolute Nucleated RBC 0.000 Nucleated RBC % (auto) 0.0 Anion Gap Creatinine Estim Creat Clear Calc Estimated GFR POC Glucose 166 H 129 H Fasting Glucose Calcium Total Bilirubin AST ALT Alkaline Phosphatase Troponin I High Sens Total Protein Albumin 02/25/22 02/25/22 02/25/22 06:57 06:57 07:28 Hgb MCV MCH MCHC RDW Plt Count MPV Immature Gran % (Auto) Neut % (Auto) Lymph % (Auto) [place] % (Auto) Eos % (Auto) Baso % (Auto) Lymph # (Auto) [place] # (Auto) Eos # (Auto) Baso # (Auto) Abs Immat Gran (auto) Absolute Neuts (auto) Absolute Nucleated RBC Nucleated RBC % (auto) Anion Gap 16 Creatinine 7.09 H* Estim Creat Clear Calc 8.0 Estimated GFR 8 POC Glucose 86 Fasting Glucose 93 Calcium 8.8 Total Bilirubin 0.5 AST 13 ALT 15 Alkaline Phosphatase 83 D Troponin I High Sens 3157.7 H* Total Protein 5.6 L Albumin 3.0 L 02/25/22 10:56 Hgb MCV MCH MCHC RDW Plt Count MPV Immature Gran % (Auto) Neut % (Auto) Lymph % (Auto) [place] % (Auto) Eos % (Auto) Baso % (Auto) Lymph # (Auto) [place] # (Auto) Eos # (Auto) Baso # (Auto) Abs Immat Gran (auto) Absolute Neuts (auto) Absolute Nucleated RBC Nucleated RBC % (auto) Anion Gap Creatinine Estim Creat Clear Calc Estimated GFR POC Glucose 193 H Fasting Glucose Calcium Total Bilirubin AST ALT Alkaline Phosphatase Troponin I High Sens Total Protein Albumin Microbiology Microbiology Results: Microbiology 02/22/22 15:35 Blood Culture - Preliminary Blood - Venous No growth after 48 hours. 02/22/22 12:07 Blood Culture - Preliminary Blood - Venous No growth after 48 hours. 02/22/22 00:00 Urine Culture - Final Urine Catheterized - Santos Catheter No growth. Assessment and Plan (1) Encephalopathy: Status: Acute (2) Anemia: Status: Acute (3) NSTEMI (non-ST elevated myocardial infarction): Status: Acute (4) ESRD (end stage renal disease): Status: Acute Plan 66-year-old male with past medical history of ESRD on dialysis, Presents to the hospital with altered mental status found to have multiple complications as below 1.Encephalopathy - resolving; all cultures negative -D/C antibiotics 2.Anemia -good response to transfusion; follow CBCs daily -continue Pantoprazole drip x 24 hrs -follow CBC in am -GI to scope when cleared from Cards;will discuss utility of same with GI in am 3. NSTEMI -likely type 2 secondary to demand in the setting of significant anemia -troponins trending down -hold Plavix/anticoag 4.ESRD on HD -due for HD -consult renal DVT prophylaxis: SCDs DNR/DNI Will require at least 2-3 additional midnights going forward for stabilization of hemoglobin and verification of an NSTEMI by Cardiology and probable endoscopy by GI once cleared by Cardiology Quality Stroke Does the patient have a stroke diagnosis?: No VTE Prior VTE?: No VTE Risk Level:: Medical - moderate - high VTE Device Contraindication: N/A - Device Ordered VTE Drug Contraindication: Treatment Not Indicated
[2022-02-25 11:30] VITALS: BP 125/47; PULSE 61; RESP 20; TEMP 36.3; O2SAT 98
[2022-02-25 15:07] VITALS: BP 112/53; PULSE 77; RESP 20; TEMP 36.9; O2SAT 97
[2022-02-25 15:39] LABS: Glucose, Whole Blood 117 mg/dL (60-115)
[2022-02-25] MEDS: Omeprazole 40 MG CAPSULE.DR PO (16:17)
[2022-02-25 19:43] VITALS: BP 147/68; PULSE 68; RESP 18; TEMP 37.1; O2SAT 98
[2022-02-25 20:22] LABS: Glucose, Whole Blood 197 mg/dL (60-115)
[2022-02-25 20:47] LABS: Glucose, Whole Blood 189 mg/dL (60-115)
[2022-02-25] MEDS: Atorvastatin Calcium 80 MG TABLET PO (21:50)
[2022-02-25] MEDS: Insulin Glargine,Hum.rec.anlog 100 UNIT/ML 10 ML VIAL 10 UNIT SUBCUT (21:55)
[2022-02-25 23:36] VITALS: BP 124/60; PULSE 70; RESP 20; TEMP 37.1; O2SAT 97
[2022-02-26 04:00] VITALS: BP 119/53; PULSE 67; RESP 20; TEMP 36.4; O2SAT 95
[2022-02-26 04:59] VITALS: BMI 24.7
[2022-02-26] MEDS: Omeprazole 40 MG CAPSULE.DR PO (05:20)
[2022-02-26] MEDS: cefTRIAXone sodium 1 GM in 0.9 % Sodium Chloride 50 ML IV (05:20)
[2022-02-26 06:46] LABS: MANUAL DIFF FLAG NO
[2022-02-26 07:02] LABS: Basophils Absolute Auto 0.1 X10*3/uL (0.0-0.2); Basophils Percent Auto 0.6 % (0-2); Eosinophils Absolute Auto 0.4 X10*3/uL (0.0-0.4); Eosinophils Percent Auto 4.5 % (0-4); Hemoglobin 7.9 g/dl (14.0-18.0); Imm Gran Abs Auto 0.04 X10*3/uL (0.00-0.03); Imm Gran Pct Auto 0.4 % (0.0-0.4); Lymphocytes Absolute Auto 1.1 X10*3/uL (1.2-4.9); Lymphocytes Percent Auto 12.3 % (20-40); Mean Corpuscular HGB Conc 32.9 g/dl (31.0-36.0); Mean Corpuscular Hemoglobin 32.4 pg (27.0-33.0); Mean Corpuscular Volume 98.4 fL (80.0-98.0); Mean Platelet Volume 11.1 fL (9.4-12.4); Monocytes Percent Auto 11.2 % (2-11); Neutrophils Absolute Auto 6.4 x10*3/uL (2.0-8.3); Platelet Count 217 X10*3/uL (160-400); Red Blood Count 2.44 X10*6/uL (4.60-5.80); Red Cell Distribution Width 14.8 % (11.0-16.0); White Blood Count 9.1 X10*3/uL (4.8-10.8)
[2022-02-26 07:08] LABS: Alanine Aminotransferase 13 U/L (0-40); Albumin Level 3.2 g/dL (3.5-5.0); Alkaline Phosphatase 99 U/L (39-117); Anion Gap 20 (12-20); Aspartate Amino Transferase 12 U/L (5-37); Bilirubin Total 0.4 mg/dL (0.0-1.0); Blood Urea Nitrogen 64 mg/dL (9-16); Calcium 8.6 mg/dL (8.4-10.2); Carbon Dioxide 21 mmol/L (22-29); Chloride 95 mmol/L (96-108); Creatinine Clr Calc Pharmacy 6.2; Estimated Glomerular Filt Rate 6; Glucose Fasting 152 mg/dL (60-99); Potassium 4.3 mmol/L (3.3-5.1); Sodium 132 mmol/L (135-145); Total Protein 5.9 g/dL (6.5-8.0)
[2022-02-26 08:00] VITALS: BP 135/60; PULSE 75; RESP 16; TEMP 36.9; O2SAT 99
[2022-02-26 08:09] LABS: Glucose, Whole Blood 169 mg/dL (60-115)
[2022-02-26] MEDS: Cholecalciferol (Vitamin D3) 25 MCG TABLET 50 MCG PO (09:08)
[2022-02-26] MEDS: 0.9 % Sodium Chloride Flush 3 ML SYRINGE IVFLUSH (09:08)
[2022-02-26] MEDS: Insulin Lispro 100 UNIT/ML 3 ML VIAL SUBCUT ×2 (09:08→12:29)
[2022-02-26] MEDS: Sevelamer Carbonate Powder 800 MG POWD.PACK 2400 MG PO ×2 (09:09→14:13)
[2022-02-26] MEDS: Isosorbide Dinitrate 10 MG TABLET PO ×2 (09:09→14:13)
--- NOTE | 2022-02-26 11:45 | PM.PNNEP ---
Subjective Subjective Date of Service: 02/26/22 Principal diagnosis: ESRD Interval history: Events noted. Feels improved. All recent data reviewed. D/W Hospitalist; Due HD tomorrow Physical Exam Vital Signs: Vital Signs: Last Vital Signs Temp 98.4 F 02/26/22 08:00 Pulse 75 02/26/22 08:00 Resp 16 02/26/22 08:00 BP 135/60 02/26/22 08:00 Pulse Ox 99 02/26/22 08:00 BMI result Body Mass Index 24.7 Const: General: no acute distress HEENT: Mouth: moist mucous membranes Eyes: EOM: EOMs intact bilaterally Neck: Neck: Yes supple Resp: Auscultation: diminished lung sounds Cardio: Rate: regular rate GI: Palpation (GI): Soft to palpation Neuro: General: moves all extremities Objective Data Labs CBC & Chem 7: 02/26/22 06:27 02/26/22 06:27 Labs: Laboratory Results - last 24 hr 02/25/22 02/25/22 02/25/22 15:31 20:18 20:43 WBC RBC Hgb Hct MCV MCH MCHC RDW Plt Count MPV Immature Gran % (Auto) Neut % (Auto) Lymph % (Auto) [place] % (Auto) Eos % (Auto) Baso % (Auto) Lymph # (Auto) [place] # (Auto) Eos # (Auto) Baso # (Auto) Abs Immat Gran (auto) Absolute Neuts (auto) Absolute Nucleated RBC Nucleated RBC % (auto) Sodium Potassium Chloride Carbon Dioxide Anion Gap BUN Creatinine Estim Creat Clear Calc Estimated GFR POC Glucose 117 H 197 H 189 H Fasting Glucose Calcium Total Bilirubin AST ALT Alkaline Phosphatase Total Protein Albumin 02/26/22 02/26/22 02/26/22 06:27 06:27 08:06 WBC 9.1 RBC 2.44 L Hgb 7.9 L Hct 24.0 L MCV 98.4 H MCH 32.4 MCHC 32.9 RDW 14.8 Plt Count 217 MPV 11.1 Immature Gran % (Auto) 0.4 Neut % (Auto) 71.0 Lymph % (Auto) 12.3 L [place] % (Auto) 11.2 H Eos % (Auto) 4.5 H Baso % (Auto) 0.6 Lymph # (Auto) 1.1 L [place] # (Auto) 1.0 Eos # (Auto) 0.4 Baso # (Auto) 0.1 Abs Immat Gran (auto) 0.04 H Absolute Neuts (auto) 6.4 Absolute Nucleated RBC 0.000 Nucleated RBC % (auto) 0.0 Sodium 132 L Potassium 4.3 Chloride 95 L Carbon Dioxide 21 L Anion Gap 20 BUN 64 H Creatinine 9.07 H* Estim Creat Clear Calc 6.2 Estimated GFR 6 POC Glucose 169 H Fasting Glucose 152 H D Calcium 8.6 Total Bilirubin 0.4 AST 12 ALT 13 Alkaline Phosphatase 99 Total Protein 5.9 L Albumin 3.2 L Microbiology Microbiology Results: Microbiology 02/22/22 15:35 Blood - Venous Blood Culture - Preliminary No growth after 48 hours. 02/22/22 12:07 Blood - Venous Blood Culture - Preliminary No growth after 48 hours. 02/22/22 00:00 Urine Catheterized - Santos Catheter Urine Culture - Final No growth. Procedures Date of Service Date of Service: 02/26/22 Assessment & Plan Assessment and plan (1) ESRD (end stage renal disease) on dialysis: Status: Acute Assessment and Plan: 66-year-old male with past medical history of? ESRD on dialysis,? Presents to the hospital with altered mental status 1.Encephalopathy; Resolving; all cultures negative 2.Anemia; good response to transfusion; Hg better; GI F/U; Procrit [id number] U TTS 4.ESRD on HD; Due HD tomorrow; Heparin free on HD; Renal Diet; Phos binders with meals Shall arrange HD follow up when D/Froylan Time Spent With Patient Time: Total time spent is greater than 50% in coordination of care (as documented) at patient's floor/unit and/or counseling patient: Progress Note: Quality Stroke Does the patient have a stroke diagnosis?: No
[2022-02-26 11:47] VITALS: BP 128/59; PULSE 76; RESP 18; TEMP 36.7; O2SAT 98
[2022-02-26 11:58] LABS: Glucose, Whole Blood 173 mg/dL (60-115)
--- NOTE | 2022-02-26 12:03 | MHC.CM.PN ---
pt to go to [facility] today at 330 pts hcp stefano notified of dc [phone]
[2022-02-26 12:50] LABS: COVID-19 Test Negative (Negative)
--- NOTE | 2022-02-26 13:16 | P.DS_ITS ---
DS: Providers Provider Date of Service: 02/26/22 Date of admission: 02/22/22 22:47 Date of discharge: 02/26/22 Primary care physician: Unknown Physician Consults: 02/22/22 22:47 Consult to Gastroenterology Routine Consulting Provider: Nolan Segal Reason for consultation: GI bleed anemia Has provider been notified: No Consult to Nephrology Routine Consulting Provider: [facility] Reason for consultation: ESRD on dialysis Has provider been notified: No 02/23/22 14:36 Consult to Cardiology Routine Consulting Provider: Kwesi Hannon Reason for consultation: NSTEMI Has provider been notified: No DS: Diagnosis Discharge Diagnosis (1) ESRD (end stage renal disease) on dialysis: Status: Acute (2) NSTEMI (non-ST elevated myocardial infarction): Status: Acute (3) Encephalopathy: Status: Acute (4) Acute upper GI bleed: Status: Acute DS: Summary Hospital Course Hospital Course: 66-year-old male with a documented history of ESRD on dialysis, who comes in via EMS from dialysis with altered mentation.? Patient is completely altered, somnolent, not responding to questions appropriately . according to family ? Who gave report to previous physician,patient's baseline is usually altered foot this is worse than usual.? I am unable to get much history from patient himself. information gathered from ED notes.? It appears that patient had just arrived to dialysis 1 dialysis staff stated the patient was acting altered.? Patient did not receive dialysis and he was sent to the hospital. according to information obtained in the chart, patient has history of stomach ulcers. ? On arrival vitals patient found to have temp of 97.8 degrees, heart rate of 105, blood pressure stable.? Hospital course Patient was admitted to [facility] and given IV antibiotics empirically for active urinary sediment. Ultimately cultures grew out negative. This was likely related to chronic hemodialysis. Was found to be anemic and started on a pantoprazole drip; he was transfused 2 units of cells with good response to his hemoglobin. He was consulted by Gastroenterology who considered endoscopy however patient's troponin was initially elevated at 2762 and peaked at 8592. He was seen by Cardiology felt the rise in his troponin was and increased demand caused by GI bleeding questionable UTI in the backdrop of likely cardiac disease. He remained asymptomatic without further bleeding. At this point in time the decision was made to treat conservatively and he will be return to long-term care where he can be followed up as an outpatient. During this hospitalization is Plavix and aspirin were held and they can be restarted approximately 1-2 weeks or at the discretion the receiving physician. Time Spent with Patient Time attestation: Total time spent providing and/or coordinating discharge services: Discharge coordination time: Greater than 30 minutes Quality: Safe Use of Opioids Does Pt have an Active Cancer Diagnosis on the Problem List?: No Quality: Stroke Does the patient have a stroke diagnosis?: No Physical Exam Vital Signs: Vital Signs: Last Vital Signs Temp 98.1 F 02/26/22 11:47 Pulse 76 02/26/22 11:47 Resp 18 02/26/22 11:47 BP 128/59 L 02/26/22 11:47 Pulse Ox 98 02/26/22 11:47 BMI result Body Mass Index 24.7 Const: Other: Awake alert confused; nonsensical speech HEENT: Other: Membranes moist Resp: Other: Clear to auscultation bilaterally no rales rhonchi or wheezes Cardio: Other: No S4; positive S1-S2; no S3 murmurs rubs gallops GI: Other: Soft nontender nondistended with normoactive bowel sounds Extrem: Other: No edema bilaterally; bruit heard over fistula left upper extremity DS: Data Data Completed and Pending Labs on day of discharge: Laboratory Results - last 24 hr 02/25/22 02/25/22 02/25/22 15:31 20:18 20:43 WBC RBC Hgb Hct MCV MCH MCHC RDW Plt Count MPV Immature Gran % (Auto) Neut % (Auto) Lymph % (Auto) [place] % (Auto) Eos % (Auto) Baso % (Auto) Lymph # (Auto) [place] # (Auto) Eos # (Auto) Baso # (Auto) Abs Immat Gran (auto) Absolute Neuts (auto) Absolute Nucleated RBC Nucleated RBC % (auto) Sodium Potassium Chloride Carbon Dioxide Anion Gap BUN Creatinine Estim Creat Clear Calc Estimated GFR POC Glucose 117 H 197 H 189 H Fasting Glucose Calcium Total Bilirubin AST ALT Alkaline Phosphatase Total Protein Albumin COVID-19 (AMANDA) COVID-19 Clin Com 02/26/22 02/26/22 02/26/22 06:27 06:27 08:06 WBC 9.1 RBC 2.44 L Hgb 7.9 L Hct 24.0 L MCV 98.4 H MCH 32.4 MCHC 32.9 RDW 14.8 Plt Count 217 MPV 11.1 Immature Gran % (Auto) 0.4 Neut % (Auto) 71.0 Lymph % (Auto) 12.3 L [place] % (Auto) 11.2 H Eos % (Auto) 4.5 H Baso % (Auto) 0.6 Lymph # (Auto) 1.1 L [place] # (Auto) 1.0 Eos # (Auto) 0.4 Baso # (Auto) 0.1 Abs Immat Gran (auto) 0.04 H Absolute Neuts (auto) 6.4 Absolute Nucleated RBC 0.000 Nucleated RBC % (auto) 0.0 Sodium 132 L Potassium 4.3 Chloride 95 L Carbon Dioxide 21 L Anion Gap 20 BUN 64 H Creatinine 9.07 H* Estim Creat Clear Calc 6.2 Estimated GFR 6 POC Glucose 169 H Fasting Glucose 152 H D Calcium 8.6 Total Bilirubin 0.4 AST 12 ALT 13 Alkaline Phosphatase 99 Total Protein 5.9 L Albumin 3.2 L COVID-19 (AMANDA) COVID-19 myaNUMBER 02/26/22 02/26/22 11:50 11:51 WBC RBC Hgb Hct MCV MCH MCHC RDW Plt Count MPV Immature Gran % (Auto) Neut % (Auto) Lymph % (Auto) [place] % (Auto) Eos % (Auto) Baso % (Auto) Lymph # (Auto) [place] # (Auto) Eos # (Auto) Baso # (Auto) Abs Immat Gran (auto) Absolute Neuts (auto) Absolute Nucleated RBC Nucleated RBC % (auto) Sodium Potassium Chloride Carbon Dioxide Anion Gap BUN Creatinine Estim Creat Clear Calc Estimated GFR POC Glucose 173 H Fasting Glucose Calcium Total Bilirubin AST ALT Alkaline Phosphatase Total Protein Albumin COVID-19 (AMANDA) Negative COVID-19 Clin Com See Note Preliminary micro results at discharge 02/22/22 15:35 Blood Culture - Preliminary Blood - Venous No growth after 48 hours. 02/22/22 12:07 Blood Culture - Preliminary Blood - Venous No growth after 48 hours. Discharge Plan Discharge Patient Disposition: [facility] Discharge Diagnosis: encephalopathy Referrals: rg celisome [Other] - 1 Week Physician,Unknown J [Primary Care Provider] - 1 Week Discharge Medications: New omeprazole 40 mg Capsule,Delayed Release(Dr/Ec) 40 mg PO BID@0630,1630 Qty: 30 0RF Continued cholecalciferol (vitamin D3) 50 mcg (2,000 unit) Tablet 50 mcg PO DAILY 0RF isosorbide dinitrate 10 mg Tablet 10 mg PO TID 0RF Rx Instructions: allow nitrate-free interval of 12-14 hrs per 24-hr period atorvastatin 80 mg Tablet 80 mg PO BEDTIME 0RF trazodone 50 mg Tablet 50 mg PO BEDTIME 0RF risperidone 0.25 mg Tablet 0.25 mg PO BEDTIME 0RF paroxetine HCl [Paxil] 20 mg Tablet 20 mg PO DAILY 0RF bisacodyl [Dulcolax (bisacodyl)] 5 mg tablet,delayed release (DR/EC) 1 tab PO DAILY PRN (Reason: constipation) 0RF insulin lispro [Humalog U-100 Insulin] 100 unit/mL Solution 1 sliding scale dose SUBCUT USEASDIRECTD 0RF Rx Instructions: 200-250: 2 251-300: 4 301-350: 6 351-400: 8 401-450: 10 451-500: 12 lactulose [Enulose] 10 gram/15 mL solution 30 ml PO BID 0RF Lantus Solostar U-100 Insulin 100 unit/mL (3 mL) Insulin Pen 10 unit SUBCUT BEDTIME 0RF sevelamer carbonate [Renvela] 2.4 gram Powder In Packet 2.4 g PO TID 0RF Rx Instructions: must administer with a meal/food Discontinued clopidogrel 75 mg Tablet 75 mg PO SUMOWEFR 0RF aspirin 81 mg Tablet,Chewable 81 mg PO DAILY 0RF Discharge Orders: Discharge Order (Routine); Ordered 02/26/22 Ordered By: Drew Cunningham Diet: advance to usual diet Activity on Discharge: As tolerated Stand Alone Forms: Patient Portal Discharge page Print Language: Yakut Care Plan Goals: Stop Plavix and aspirin. Can be restarted in 1 week or at the discretion of receiving physician Health Concerns: Continue all meds as previously ordered Plan of Treatment: Hemodialysis tomorrow and then as scheduled Assessment: See discharge summary
== END 2022-02-26 15:15 | DRG 253 ==
LOC: HO.ED 17:45 → HO.EDOVER 23:11 → HO.IMC 02-23 12:23
PROVIDERS: Physician Assistant Medical; Admitting Provider Internal Medicine; Emergency Provider Emergency Medicine; Visit Provider Hospitalist
DX: K92.2 Gastrointestinal hemorrhage, unspecified (principal); G92.8 Other toxic encephalopathy; I21.A1 Myocardial infarction type 2; N18.6 End stage renal disease; D63.1 Anemia in chronic kidney disease; Z20.822 Contact with and (suspected) exposure to COVID-19; F02.80 Dementia in other diseases classified elsewhere, unspecified severity, without behavioral disturbance, psychotic disturbance, mood disturbance, and anxiety; G20 Parkinson's disease; Z66 Do not resuscitate; N39.0 Urinary tract infection, site not specified; Z91.15 Patient's noncompliance with renal dialysis; Z99.2 Dependence on renal dialysis; Z87.891 Personal history of nicotine dependence; Z88.0 Allergy status to penicillin; Z79.4 Long term (current) use of insulin; Z79.899 Other long term (current) drug therapy
CPT/HCPCS: 36415; 36430; 70450; 71046; 80048; 80053; 80307; 81001; 82140; 82272; 82803; 82947; 83605; 84484; 85025; 85610; 85730; 86850; 86900; 86901; 86923; 87040; 87086; 87502; 87635; 90999; 93005; 99285; J0696; P9016

== ENCOUNTER 2022-03-15 14:51 | Inpatient (IN) | payer MEDICAID, SELFPAY ==
[2022-03-15] VITALS (15 sets, daily range): BP systolic 74–133; BP diastolic 34–81; PULSE 75–144; RESP 12–18; TEMP 36.6–37.4; O2SAT 95–100; BMI 25.2
--- NOTE | ~2022-03-15 | XR_ITS ---
EXAMINATION: XR CHEST CLINICAL INFORMATION: Pain. COMPARISON: Chest x-ray 02/22/2022 TECHNIQUE: Frontal portable view of the chest was obtained. 2135 hours FINDINGS: Heart size enlarged. Calcifications of thoracic aorta. Vascular stent in the superior left mediastinum. No acute abnormality. No pulmonary vascular congestion. No focal consolidation, pleural effusion or pneumothorax. XR/XR chest 1V IMPRESSION: No acute abnormality of chest.
--- NOTE | ~2022-03-15 | CT_ITS ---
EXAMINATION: CT HEAD WITHOUT CONTRAST (STROKE PROTOCOL) CLINICAL INFORMATION: Stroke protocol. Dysphagia COMPARISON: Previous head CT most recent 02/22/2022 TECHNIQUE: Contiguous axial imaging was performed from the skull base to vertex without intravenous administration of contrast. This CT examination was performed using dose optimization techniques as appropriate, variously including the following: *Automated exposure control *Adjustment of mA and/or kV according to patient size (this includes techniques or standardized protocols for targeted exams where dose is matched to indication/reason for exam; i.e. extremities or head) *Use of iterative reconstruction technique DLP: 1175 mGy-cm FINDINGS: There is no evidence of an extra-axial collection. There is no evidence of intra-axial or extra-axial hemorrhage. The ventricles and extra-axial CSF spaces are prominent suggestive of generalized atrophy. There is nonspecific periventricular white matter disease. This appears similar to previous exam. No mass or mass effect is seen. Review of bone windows are normal. No skull fracture is seen. Visualized paranasal sinuses, mastoid air cells and middle ears are clear. CT/CT head for stroke IMPRESSION: No acute findings. Generalized atrophy and nonspecific periventricular white matter disease similar to previous exam. This critical result was discussed with Dr. Foster at 1618 hours on 03/19/2022. It was ascertained that the content and urgency of the report was understood at the time of direct communication.
--- NOTE | ~2022-03-15 | XR_ITS ---
EXAMINATION: XR KNEE, RIGHT CLINICAL INFORMATION: Knee pain COMPARISON: Right knee 07/01/2013 TECHNIQUE: Two views of the right knee. FINDINGS: No fracture. No dislocation. No joint effusion. No focal bone lesion. Joint spaces are normal. There are extensive vascular calcifications present of the leg. Vascular calcifications have progressed since prior study of 2012. XR/XR knee RT 2V IMPRESSION: Normal right knee.
--- NOTE | 2022-03-15 15:14 | ECG_ITS ---
Test Reason : tacycardia Blood Pressure : / mmHG Vent. Rate : 129 BPM Atrial Rate : 000 BPM P-R Int : 000 ms QRS Dur : 090 ms QT Int : 322 ms P-R-T Axes : 000 017 188 degrees QTc Int : 471 ms Atrial fibrillation with rapid ventricular response Minimal voltage criteria for LVH, may be normal variant ( [place] product ) Marked ST abnormality, possible anterolateral subendocardial injury Abnormal ECG When compared with ECG of 22-FEB-2022 22:55, Atrial fibrillation has replaced Sinus rhythm T wave inversion more evident in Lateral leads Referred By: Generic ED Physician Electronically Signed By:BLANCHE GONSALEZ
[2022-03-15 15:19] LABS: Glucose, Whole Blood 144 mg/dL (60-115)
[2022-03-15 15:25] LABS: MANUAL DIFF FLAG NO
[2022-03-15 15:32] LABS: Basophils Percent Auto 0.3 % (0-2); Eosinophils Absolute Auto 0.2 X10*3/uL (0.0-0.4); Eosinophils Percent Auto 1.8 % (0-4); Hematocrit 26.5 % (42.0-52.0); Hemoglobin 8.3 g/dl (14.0-18.0); Imm Gran Abs Auto 0.05 X10*3/uL (0.00-0.03); Imm Gran Pct Auto 0.5 % (0.0-0.4); Lymphocytes Absolute Auto 1.1 X10*3/uL (1.2-4.9); Lymphocytes Percent Auto 11.8 % (20-40); Mean Corpuscular HGB Conc 31.3 g/dl (31.0-36.0); Mean Corpuscular Hemoglobin 31.6 pg (27.0-33.0); Mean Corpuscular Volume 100.8 fL (80.0-98.0); Mean Platelet Volume 11.1 fL (9.4-12.4); Monocytes Absolute Auto 0.7 X10*3/uL (0.1-1.2); Monocytes Percent Auto 7.5 % (2-11); Neutrophils Absolute Auto 7.2 x10*3/uL (2.0-8.3); Neutrophils Percent Auto 78.1 % (45-73); Platelet Count 197 X10*3/uL (160-400); Red Blood Count 2.63 X10*6/uL (4.60-5.80); White Blood Count 9.3 X10*3/uL (4.8-10.8)
[2022-03-15 15:51] LABS: Lactic Acid 2.4 mmol/L (0.5-2.0)
[2022-03-15 15:52] LABS: Alanine Aminotransferase 11 U/L (0-40); Albumin Level 3.4 g/dL (3.5-5.0); Alkaline Phosphatase 151 U/L (39-117); Anion Gap 18 (12-20); Aspartate Amino Transferase 26 U/L (5-37); Bilirubin Total 0.4 mg/dL (0.0-1.0); Blood Urea Nitrogen 21 mg/dL (9-16); Calcium 8.8 mg/dL (8.4-10.2); Carbon Dioxide 27 mmol/L (22-29); Chloride 97 mmol/L (96-108); Creatinine Clr Calc Pharmacy 13.3; Estimated Glomerular Filt Rate 15; Glucose Random 167 mg/dL (60-115); Potassium 4.4 mmol/L (3.3-5.1); Sodium 138 mmol/L (135-145)
--- NOTE | 2022-03-15 16:02 | ED.GENADULT ---
HPI - General Adult General Chief complaint: Recheck/Abnormal Lab/Rx Stated complaint: SCREAMING OF R KNEE PAIN,LOW BP PER DIALYSIS Time Seen by Provider: 03/15/22 15:24 Source: patient and EMS Mode of arrival: EMS Limitations: altered mental status History of Present Illness HPI narrative: 66-year-old male presents via EMS from a intermediate facility because he was screaming about pain in his knee. Also noted to have a low blood pressure during dialysis. Patient is confused per baseline Onset (ago): unknown Location: right and lower extremity Radiation: non-radiation Severity: moderate Pain Consistency: constant Relieving factors: none Exacerbating factors: movement Associated symptoms: confusion Treatments prior to arrival: none Related Data Home Medications Medication Instructions Recorded Confirmed atorvastatin 80 mg tablet 80 mg PO BEDTIME 02/22/22 03/15/22 bisacodyl 5 mg tablet,delayed 1 tab PO DAILY PRN 02/22/22 03/15/22 release (Dulcolax (bisacodyl)) cholecalciferol (vitamin D3) 50 50 mcg PO DAILY 02/22/22 03/15/22 mcg (2,000 unit) tablet insulin glargine 100 unit/mL (3 10 unit SUBCUT BEDTIME 02/22/22 03/15/22 mL) subcutaneous pen (Lantus Solostar U-100 Insulin) insulin lispro 100 unit/mL 1 sliding scale dose SUBCUT 02/22/22 03/15/22 subcutaneous solution (Humalog USEASDIRECTD U-100 Insulin) isosorbide dinitrate 10 mg tablet 10 mg PO TID 02/22/22 03/15/22 lactulose 10 gram/15 mL oral 30 ml PO BID 02/22/22 03/15/22 solution (Enulose) paroxetine HCl 20 mg tablet (Paxil) 20 mg PO DAILY 02/22/22 03/15/22 risperidone 0.25 mg tablet 0.25 mg PO BEDTIME 02/22/22 03/15/22 sevelamer carbonate 2.4 gram oral 2.4 g PO TIDAC 02/22/22 03/15/22 powder packet (Renvela) trazodone 50 mg tablet 50 mg PO BEDTIME 02/22/22 03/15/22 Previous Rx's Medication Instructions Recorded omeprazole 40 mg capsule,delayed 40 mg PO BID@5281,7150 #30 cap 02/26/22 release Allergies Allergy/AdvReac Type Severity Reaction Status Date / Time Penicillins [PCN] Allergy Intermediate ITCHING Verified 03/15/22 15:03 Review of Systems Review of Systems: Yes Unobtainable due to mental status PMFSH Past Medical History Attestation statement: The following information was validated with the patient. Source: old records reviewed Social History Social History Household Members: Unknown / Unable to assess Housing: Unknown / Unable to assess Do you presently have visiting nurse or other home services: No (unknown) Unable to assess alcohol history related to: Unknown Alcohol intake: never Patient Tobacco Use Status: Former Tobacco user Use of substances other than those prescribed or required for medical reasons: No Advance Directives: Yes Advance Directives Information Provided: No Advance Directives on File: No Current occupational status: disabled Physical Exam ED Vital Signs: Vital Signs - 24 hr 03/15/22 15:03 03/15/22 16:03 03/15/22 16:28 Temperature 98.2 F 97.8 F Pulse Rate 144 H 121 H 143 H Respiratory Rate 18 16 18 Blood Pressure 103/51 L 101/59 L 106/55 L Pulse Oximetry 98 98 03/15/22 16:52 03/15/22 17:31 03/15/22 18:00 Temperature Pulse Rate 134 H 138 H 137 H Respiratory Rate 18 18 14 Blood Pressure 110/65 123/68 120/51 L Pulse Oximetry 99 97 100 03/15/22 19:31 03/15/22 20:00 03/15/22 20:58 Temperature 99.4 F Pulse Rate 102 H 75 Respiratory Rate 13 12 Blood Pressure 123/81 79/39 L Pulse Oximetry 97 03/15/22 21:04 03/15/22 21:30 03/15/22 21:50 Temperature Pulse Rate 115 H 83 77 Respiratory Rate 18 16 14 Blood Pressure 90/44 L 74/36 L 85/34 L Pulse Oximetry 97 98 03/15/22 22:10 03/15/22 22:27 Temperature Pulse Rate 81 87 Respiratory Rate 15 17 Blood Pressure 133/56 L 133/56 L Pulse Oximetry 96 97 BMI result Body Mass Index 25.2 Appearance: Alert. No acute distress. Eyes: Pupils equal, round and reactive to light. ENT: Pharynx normal. Neck: Normal inspection. Neck supple. CVS: Normal heart rate and rhythm. Pulses normal. Respiratory: No respiratory distress. Breath sounds normal. Abdomen: Soft and nontender. Skin: Skin warm and dry. Normal skin color. Normal skin turgor. Extremities: No lower extremity edema. Moves all extremities. Neuro: No motor deficit. No sensory deficit. Unable to follow commands. Course Course Course Narrative: 66-year-old male presents via EMS from dialysis, patient was reporting pain in his lower right knee and was noted to have a low blood pressure of 56/42. 16:30 blood pressures soft, diltiazem 2.5 rather than 5, 500 mL fluid bolus with slow infusion. Did discuss this plan with Dr. Pepper. 20:30 heart rate dropped to the 20s, Dr. Gomez has resumed care over this case. Plan of care is to admit for new onset AFib. Consultations Consultation #1: Earle Time: 21:02 Medical Decision Making Differential Diagnosis Differential Diagnosis: Sepsis, bacteremia, arthritis, effusion, hemarthrosis Medical Records Medical records reviewed: Yes I reviewed the patient's medical records. Lab Data Lab results reviewed: Yes I reviewed the patient's lab results. Result diagrams: 03/15/22 15:19 03/15/22 15:19 Labs: Lab Results 03/15/22 03/15/22 03/15/22 Range/Units 15:12 15:19 15:19 WBC 9.3 (4.8-10.8) X10*3/uL RBC 2.63 L (4.60-5.80) X10*6/uL Hgb 8.3 L (14.0-18.0) g/dl Hct 26.5 L (42.0-52.0) % MCV 100.8 H (80.0-98.0) fL MCH 31.6 (27.0-33.0) pg MCHC 31.3 (31.0-36.0) g/dl RDW 14.0 (11.0-16.0) % Plt Count 197 (160-400) X10*3/uL MPV 11.1 (9.4-12.4) fL Immature Gran % (Auto) 0.5 H (0.0-0.4) % Neut % (Auto) 78.1 H (45-73) % Lymph % (Auto) 11.8 L (20-40) % [place] % (Auto) 7.5 (2-11) % Eos % (Auto) 1.8 (0-4) % Baso % (Auto) 0.3 (0-2) % Lymph # (Auto) 1.1 L (1.2-4.9) X10*3/uL [place] # (Auto) 0.7 (0.1-1.2) X10*3/uL Eos # (Auto) 0.2 (0.0-0.4) X10*3/uL Baso # (Auto) 0.0 (0.0-0.2) X10*3/uL Abs Immat Gran (auto) 0.05 H (0.00-0.03) X10*3/uL Absolute Neuts (auto) 7.2 (2.0-8.3) x10*3/uL Absolute Nucleated RBC 0.000 (0.0-0.012) X10*3/uL Nucleated RBC % (auto) 0.0 (0.0-0.2) /100WBC Sodium 138 (135-145) mmol/L Potassium 4.4 (3.3-5.1) mmol/L Chloride 97 (96-108) mmol/L Carbon Dioxide 27 (22-29) mmol/L Anion Gap 18 (12-20) BUN 21 H D (9-16) mg/dL Creatinine 4.10 H* (0.5-1.4) mg/dL Estim Creat Clear Calc 13.3 Estimated GFR 15 POC Glucose 144 H (60-115) mg/dL Random Glucose 167 H D (60-115) mg/dL Lactic Acid (0.5-2.0) mmol/L Lactic Acid F/U @ 2Hr (0.5-2.0) mmol/L Calcium 8.8 (8.4-10.2) mg/dL Total Bilirubin 0.4 (0.0-1.0) mg/dL AST 26 D (5-37) U/L ALT 11 (0-40) U/L Alkaline Phosphatase 151 H D (39-117) U/L Total Protein 7.0 (6.5-8.0) g/dL Albumin 3.4 L (3.5-5.0) g/dL COVID-19 (AMANDA) (Negative) COVID-19 Clin Com 03/15/22 03/15/22 03/15/22 Range/Units 15:19 18:17 20:56 WBC (4.8-10.8) X10*3/uL RBC (4.60-5.80) X10*6/uL Hgb (14.0-18.0) g/dl Hct (42.0-52.0) % MCV (80.0-98.0) fL MCH (27.0-33.0) pg MCHC (31.0-36.0) g/dl RDW (11.0-16.0) % Plt Count (160-400) X10*3/uL MPV (9.4-12.4) fL Immature Gran % (Auto) (0.0-0.4) % Neut % (Auto) (45-73) % Lymph % (Auto) (20-40) % [place] % (Auto) (2-11) % Eos % (Auto) (0-4) % Baso % (Auto) (0-2) % Lymph # (Auto) (1.2-4.9) X10*3/uL [place] # (Auto) (0.1-1.2) X10*3/uL Eos # (Auto) (0.0-0.4) X10*3/uL Baso # (Auto) (0.0-0.2) X10*3/uL Abs Immat Gran (auto) (0.00-0.03) X10*3/uL Absolute Neuts (auto) (2.0-8.3) x10*3/uL Absolute Nucleated RBC (0.0-0.012) X10*3/uL Nucleated RBC % (auto) (0.0-0.2) /100WBC Sodium (135-145) mmol/L Potassium (3.3-5.1) mmol/L Chloride (96-108) mmol/L Carbon Dioxide (22-29) mmol/L Anion Gap (12-20) BUN (9-16) mg/dL Creatinine (0.5-1.4) mg/dL Estim Creat Clear Calc Estimated GFR POC Glucose 130 H (60-115) mg/dL Random Glucose (60-115) mg/dL Lactic Acid 2.4 H* (0.5-2.0) mmol/L Lactic Acid F/U @ 2Hr 1.0 (0.5-2.0) mmol/L Calcium (8.4-10.2) mg/dL Total Bilirubin (0.0-1.0) mg/dL AST (5-37) U/L ALT (0-40) U/L Alkaline Phosphatase (39-117) U/L Total Protein (6.5-8.0) g/dL Albumin (3.5-5.0) g/dL COVID-19 (AMANDA) (Negative) COVID-19 Clin Com 03/15/22 Range/Units 22:14 WBC (4.8-10.8) X10*3/uL RBC (4.60-5.80) X10*6/uL Hgb (14.0-18.0) g/dl Hct (42.0-52.0) % MCV (80.0-98.0) fL MCH (27.0-33.0) pg MCHC (31.0-36.0) g/dl RDW (11.0-16.0) % Plt Count (160-400) X10*3/uL MPV (9.4-12.4) fL Immature Gran % (Auto) (0.0-0.4) % Neut % (Auto) (45-73) % Lymph % (Auto) (20-40) % [place] % (Auto) (2-11) % Eos % (Auto) (0-4) % Baso % (Auto) (0-2) % Lymph # (Auto) (1.2-4.9) X10*3/uL [place] # (Auto) (0.1-1.2) X10*3/uL Eos # (Auto) (0.0-0.4) X10*3/uL Baso # (Auto) (0.0-0.2) X10*3/uL Abs Immat Gran (auto) (0.00-0.03) X10*3/uL Absolute Neuts (auto) (2.0-8.3) x10*3/uL Absolute Nucleated RBC (0.0-0.012) X10*3/uL Nucleated RBC % (auto) (0.0-0.2) /100WBC Sodium (135-145) mmol/L Potassium (3.3-5.1) mmol/L Chloride (96-108) mmol/L Carbon Dioxide (22-29) mmol/L Anion Gap (12-20) BUN (9-16) mg/dL Creatinine (0.5-1.4) mg/dL Estim Creat Clear Calc Estimated GFR POC Glucose (60-115) mg/dL Random Glucose (60-115) mg/dL Lactic Acid (0.5-2.0) mmol/L Lactic Acid F/U @ 2Hr (0.5-2.0) mmol/L Calcium (8.4-10.2) mg/dL Total Bilirubin (0.0-1.0) mg/dL AST (5-37) U/L ALT (0-40) U/L Alkaline Phosphatase (39-117) U/L Total Protein (6.5-8.0) g/dL Albumin (3.5-5.0) g/dL COVID-19 (AMANDA) Negative (Negative) COVID-19 Clin Com See Note Imaging Data Knee: Attestation: I personally reviewed and interpreted this imaging study as follows: Radiologist's impression: EXAMINATION: XR KNEE, RIGHT? CLINICAL INFORMATION: Knee pain? COMPARISON: Right knee 07/01/2013? TECHNIQUE: Two views of the right knee. FINDINGS: No fracture. No dislocation. No joint effusion. No focal bone lesion. Joint spaces are normal. ?There are extensive vascular calcifications present of the leg. Vascular calcifications have progressed since prior study of 2012. XR/XR knee RT 2V IMPRESSION: Normal right knee. ECG Data Attestation: I personally reviewed and interpreted this ECG as follows: Prior ECG tracings: available for review Interpretation: Vent. rate 129 BPM OR interval * ms QRS duration 90 ms QT/QTc 322/471 ms P-R-T axes * 17 188 Atrial fibrillation with rapid ventricular response Minimal voltage criteria for LVH, may be normal variant ( [place] product ) Marked ST abnormality, possible anterolateral subendocardial injury Abnormal ECG When compared with ECG of 22-FEB-2022 22:55, Atrial fibrillation has replaced Sinus rhythm T wave inversion more evident in Lateral leads Critical Care Time Critical Care Time Critical Care Time: Yes Total Critical Care Time: 45 Attestation: I have personally provided critical care time exclusive of time spent on separately billable procedures. Time includes review of laboratory data, radiology results, discussion with consultants, and monitoring for potential decompensation. Interventions were performed as documented. Discharge Plan Discharge Clinical Impression: New onset a-fib Patient Disposition: Admitted As Inpatient
[2022-03-15] MEDS: dilTIAZem HCL 50 MG/10 ML VIAL IVPUSH ×3 (16:46→19:23)
[2022-03-15 17:23] LABS: Reflex Lactate? Lactic Acid Added
--- NOTE | 2022-03-15 17:41 | PC.NURSE ---
difficult stick. previous iv has swelling of vein. fluids infused w/o diff and there's still good return but a localized reddness/swelling following diltiazem. this rn will approach other rn for access.
--- NOTE | 2022-03-15 18:39 | PC.NURSE ---
pt was a difficult stick. now has ej from provider. less complaining of knee pain. remains in rapid a fib in 130's on monutior.
--- NOTE | 2022-03-15 20:44 | ECG_ITS ---
Test Reason : BRADYCARDIA Blood Pressure : / mmHG Vent. Rate : 056 BPM Atrial Rate : 056 BPM P-R Int : 110 ms QRS Dur : 094 ms QT Int : 414 ms P-R-T Axes : 090 025 -09 degrees QTc Int : 399 ms Sinus bradycardia with short WI with Premature atrial complexes Otherwise normal ECG When compared with ECG of 15-MAR-2022 15:12, Sinus rhythm has replaced Atrial fibrillation Vent. rate has decreased BY [address] no longer depressed in Anterolateral leads T wave inversion no longer evident in Anterolateral leads Referred By: Demond Benito Electronically Signed By:Sherif Nevarez
[2022-03-15 21:01] LABS: Glucose, Whole Blood 130 mg/dL (60-115)
--- NOTE | 2022-03-15 21:31 | PHA.MEDREC ---
Pharmacy Consult ? Medication Reconciliation Pharmacy has completed the medication reconciliation.
[2022-03-15] MEDS: Midodrine HCl 5 MG TABLET PO (21:57)
[2022-03-15] MEDS: 0.9 % Sodium Chloride 500 ML 250 ML IVCONT (21:58)
[2022-03-15 22:33] LABS: COVID-19 Test Negative (Negative)
--- NOTE | 2022-03-15 23:27 | P.HPHOSP_ITS ---
History of Present Illness Date of Service: 03/15/22 Chief Complaint: Hypotension 66-year-old male with a past medical history of hypertension, hyperlipidemia, diabetes, recent NSTEMI, ESRD on hemodialysis, recent history of acute GI bleed anemia, dementia presented to the hospital with a chief complaint of hypotension post HD. Patient had his regular session of hemodialysis today and post dialysis patient noted to have blood pressure with systolic in 50s; given 500 cc of IV fluids at the dialysis center and subsequently sent him to the ER for further evaluation. At the time of entry patient is alert and awake, confused-appears to be at baseline; does not seem to be in distress. Patient unable to provide history given his dementia. Able to talk normally but not pertaining to the history of presenting illness. Patient denies any chest pain or palpitations. Denies any cough or sputum production. Review of all other systems is limited ER course: Per ER team patient on presentation noted to be tachycardic-EKG was AFib with RVR with heart rate in 140s. Patient was given 500 cc of IV fluids. Patient also received diltiazem 2.5 mg IV x3. Heart rate improved to low 100s. Followed by patient was given mild noted. Lactate was 2.1. Which she normalized. The follow-up blood pressure improved. Admitted to the hospital for further management. [facility] Social History Household Members: Unknown / Unable to assess Housing: Unknown / Unable to assess Do you presently have visiting nurse or other home services: No (unknown) Unable to assess alcohol history related to: Unknown Alcohol intake: never Patient Tobacco Use Status: Former Tobacco user Use of substances other than those prescribed or required for medical reasons: No Advance Directives: Yes Advance Directives Information Provided: No Advance Directives on File: No Current occupational status: disabled Meds Allergies Allergy/AdvReac Type Severity Reaction Status Date / Time Penicillins [PCN] Allergy Intermediate ITCHING Verified 03/15/22 15:03 Active Medications: Current Medications Acetaminophen (Acetaminophen 325 Mg Tablet) 650 mg PO Q6H PRN PRN Reason: Pain, Mild (Pain Scale 1-3) Heparin Sodium (Porcine) (Heparin Sodium,Porcine 5,000 Unit/Ml Vial) 5,000 unit SUBCUT Q8H EVA Melatonin (Melatonin 3 Mg Tablet) 6 mg PO BEDTIME PRN PRN Reason: Insomnia Senna (Sennosides 8.6 Mg Tablet) 17.2 mg PO BEDTIME PRN PRN Reason: Constipation Sodium Chloride (0.9 % Sodium Chloride Flush 3 Ml Syringe) 3 ml IVFLUSH QSHIFT [facility] Home Medications Medication Instructions Recorded Confirmed Last Taken Type atorvastatin 80 mg tablet 80 mg PO BEDTIME 02/22/22 03/15/22 Unknown History bisacodyl 5 mg tablet,delayed 1 tab PO DAILY PRN 02/22/22 03/15/22 Unknown History release (Dulcolax (bisacodyl)) cholecalciferol (vitamin D3) 50 50 mcg PO DAILY 02/22/22 03/15/22 Unknown History mcg (2,000 unit) tablet insulin glargine 100 unit/mL (3 10 unit SUBCUT BEDTIME 02/22/22 03/15/22 Unknown History mL) subcutaneous pen (Lantus Solostar U-100 Insulin) insulin lispro 100 unit/mL 1 sliding scale dose SUBCUT 02/22/22 03/15/22 Unknown History subcutaneous solution (Humalog USEASDIRECTD U-100 Insulin) isosorbide dinitrate 10 mg tablet 10 mg PO TID 02/22/22 03/15/22 Unknown History lactulose 10 gram/15 mL oral 30 ml PO BID 02/22/22 03/15/22 Unknown History solution (Enulose) paroxetine HCl 20 mg tablet (Paxil) 20 mg PO DAILY 02/22/22 03/15/22 Unknown History risperidone 0.25 mg tablet 0.25 mg PO BEDTIME 02/22/22 03/15/22 Unknown History sevelamer carbonate 2.4 gram oral 2.4 g PO TIDAC 02/22/22 03/15/22 Unknown History powder packet (Renvela) trazodone 50 mg tablet 50 mg PO BEDTIME 02/22/22 03/15/22 Unknown History Physical Exam Vital Signs and Narrative: Vital Signs: Last Vital Signs Temp 99.4 F 03/15/22 20:58 Pulse 87 03/15/22 22:27 Resp 17 03/15/22 22:27 BP 133/56 L 03/15/22 22:27 Pulse Ox 97 03/15/22 22:27 BMI result Body Mass Index 25.2 Gen: Appears be in no acute distress HEENT: NCAT, Moist mucosa. Pulmonary: Vesicular breath sounds, fair air entry CVS: Normal S1-S2 Abdomen: BS+, Soft, Nontender Extremities: Warm well perfused; Neuro: Alert and awake. Oriented x2 Results Labs CBC and Chem 7: 03/15/22 15:19 03/15/22 15:19 Labs: Laboratory Results - last 24 hr 03/15/22 03/15/22 03/15/22 15:12 15:19 15:19 MCV 100.8 H MCH 31.6 MCHC 31.3 RDW 14.0 Plt Count 197 MPV 11.1 Immature Gran % (Auto) 0.5 H Neut % (Auto) 78.1 H Lymph % (Auto) 11.8 L [place] % (Auto) 7.5 Eos % (Auto) 1.8 Baso % (Auto) 0.3 Lymph # (Auto) 1.1 L [place] # (Auto) 0.7 Eos # (Auto) 0.2 Baso # (Auto) 0.0 Abs Immat Gran (auto) 0.05 H Absolute Neuts (auto) 7.2 Absolute Nucleated RBC 0.000 Nucleated RBC % (auto) 0.0 Anion Gap 18 Estim Creat Clear Calc 13.3 Estimated GFR 15 POC Glucose 144 H Random Glucose 167 H D Lactic Acid Lactic Acid F/U @ 2Hr Calcium 8.8 Total Bilirubin 0.4 AST 26 D ALT 11 Alkaline Phosphatase 151 H D Total Protein 7.0 Albumin 3.4 L COVID-19 (AMANDA) COVID-19 Clin Com 03/15/22 03/15/22 03/15/22 15:19 18:17 20:56 MCV MCH MCHC RDW Plt Count MPV Immature Gran % (Auto) Neut % (Auto) Lymph % (Auto) [place] % (Auto) Eos % (Auto) Baso % (Auto) Lymph # (Auto) [place] # (Auto) Eos # (Auto) Baso # (Auto) Abs Immat Gran (auto) Absolute Neuts (auto) Absolute Nucleated RBC Nucleated RBC % (auto) Anion Gap Estim Creat Clear Calc Estimated GFR POC Glucose 130 H Random Glucose Lactic Acid 2.4 H* Lactic Acid F/U @ 2Hr 1.0 Calcium Total Bilirubin AST ALT Alkaline Phosphatase Total Protein Albumin COVID-19 (AMANDA) COVID-19 Clin Com 03/15/22 22:14 MCV MCH MCHC RDW Plt Count MPV Immature Gran % (Auto) Neut % (Auto) Lymph % (Auto) [place] % (Auto) Eos % (Auto) Baso % (Auto) Lymph # (Auto) [place] # (Auto) Eos # (Auto) Baso # (Auto) Abs Immat Gran (auto) Absolute Neuts (auto) Absolute Nucleated RBC Nucleated RBC % (auto) Anion Gap Estim Creat Clear Calc Estimated GFR POC Glucose Random Glucose Lactic Acid Lactic Acid F/U @ 2Hr Calcium Total Bilirubin AST ALT Alkaline Phosphatase Total Protein Albumin COVID-19 (AMANDA) Negative COVID-19 Clin Com See Note Imaging Radiologist's Impressions: Impressions Knee X-Ray 03/15/22 16:38 IMPRESSION: Normal right knee. Chest X-Ray 03/15/22 21:25 IMPRESSION: No acute abnormality of chest. Assessment and Plan Plan 66-year-old male with a past medical history of hypertension, hyperlipidemia, diabetes, recent NSTEMI, ESRD on hemodialysis, recent history of acute GI bleed anemia, dementia presented to the hospital with a chief complaint of hypotension post HD. Hypotension: Patient is status post 500 cc of IV fluids at the dialysis center plus 500cc f luids in the ER. Also patient received midodrine 5 mg in the ER. Monitor vitals closely. Chest x-ray showed no evidence of pneumonia. Urinalysis pending. AFib with RVR: Patient has new onset AFib. Patient received diltiazem IV in the ER. Heart rate improved. Monitor telemetry. Obtain TSH and echocardiogram. Cardiology consult ESRD: Patient on hemodialysis. Received hemodialysis today. Patient has 1.2 L of fluid taken out at the dialysis. Nephrology consult. Continue History of CAD: Patient had recent STEMI. Continue home statin, Imdur. Patient on aspirin given recent GI bleed/severe anemia. History of dementia/depression: Continue home risperidone, paroxetine History of diabetes: Will keep the patient on insulin sliding scale DVT ppx: SQH Code Status: DNR/DNI. Quality Stroke Does the patient have a stroke diagnosis?: No VTE Prior VTE?: No VTE Risk Level:: Medical - moderate - high VTE Device Contraindication: Treatment Not Indicated VTE Drug Contraindication: N/A - Med Ordered
[2022-03-16] VITALS (7 sets, daily range): BP systolic 111–152; BP diastolic 37–76; PULSE 72–82; RESP 16–20; TEMP 36.3–37.3; O2SAT 96–98
[2022-03-16 00:41] LABS: Thyroid Stimulating Hormone 2.79 uIU/mL (0.32-4.0)
[2022-03-16] MEDS: Heparin Sodium,Porcine 5,000 UNIT/ML VIAL 5000 UNIT SUBCUT ×4 (01:10→16:07)
[2022-03-16] MEDS: 0.9 % Sodium Chloride Flush 3 ML SYRINGE IVFLUSH ×4 (01:11→21:33)
--- NOTE | 2022-03-16 02:49 | PC.NURSE ---
Assumed care at 0035, pt came from main ED via stretcher, alert and oriented to self only, weak and pale,able to tolerate po, AF controlled in the 80s, denies any pain, noted with AV fistula on the left arm with bruit and thrill, VSS, bed alrm on.
[2022-03-16 07:23] LABS: Glucose, Whole Blood 107 mg/dL (60-115)
[2022-03-16 07:48] LABS: MANUAL DIFF FLAG NO
[2022-03-16 07:53] LABS: Basophils Percent Auto 0.4 % (0-2); Eosinophils Absolute Auto 0.1 X10*3/uL (0.0-0.4); Eosinophils Percent Auto 1.1 % (0-4); Hematocrit 25.6 % (42.0-52.0); Hemoglobin 7.9 g/dl (14.0-18.0); Imm Gran Abs Auto 0.05 X10*3/uL (0.00-0.03); Imm Gran Pct Auto 0.5 % (0.0-0.4); Lymphocytes Absolute Auto 1.2 X10*3/uL (1.2-4.9); Lymphocytes Percent Auto 12.2 % (20-40); Mean Corpuscular HGB Conc 30.9 g/dl (31.0-36.0); Mean Corpuscular Hemoglobin 31.1 pg (27.0-33.0); Mean Corpuscular Volume 100.8 fL (80.0-98.0); Mean Platelet Volume 11.2 fL (9.4-12.4); Monocytes Percent Auto 10.6 % (2-11); Neutrophils Absolute Auto 7.2 x10*3/uL (2.0-8.3); Neutrophils Percent Auto 75.2 % (45-73); Platelet Count 207 X10*3/uL (160-400); Red Blood Count 2.54 X10*6/uL (4.60-5.80); Red Cell Distribution Width 14.1 % (11.0-16.0); White Blood Count 9.5 X10*3/uL (4.8-10.8)
[2022-03-16 08:17] LABS: Anion Gap 14 (12-20); Blood Urea Nitrogen 33 mg/dL (9-16); Calcium 8.9 mg/dL (8.4-10.2); Carbon Dioxide 28 mmol/L (22-29); Chloride 99 mmol/L (96-108); Creatinine Clr Calc Pharmacy 9.3; Estimated Glomerular Filt Rate 10; Glucose Random 122 mg/dL (60-115); Potassium 3.8 mmol/L (3.3-5.1); Sodium 137 mmol/L (135-145)
[2022-03-16] MEDS: Lactulose 20 GM/30 ML SOLUTION PO ×2 (08:39→21:33)
[2022-03-16] MEDS: Cholecalciferol (Vitamin D3) 25 MCG TABLET 50 MCG PO (08:40)
[2022-03-16] MEDS: PARoxetine HCL 20 MG TABLET PO (08:40)
[2022-03-16] MEDS: Isosorbide Dinitrate 10 MG TABLET PO ×2 (08:40→21:32)
--- NOTE | 2022-03-16 09:23 | PC.NURSE ---
Pt alert to self and place. Bulgarian speaking only. pt offering no complaints. VSS. neuros intact. BPs stable. Medicated per MAR. Call hunt and belongings within reach.
--- NOTE | 2022-03-16 12:54 | ECG_ITS ---
Test Reason : BRADYCARDIA Blood Pressure : / mmHG Vent. Rate : 084 BPM Atrial Rate : 084 BPM P-R Int : 118 ms QRS Dur : 088 ms QT Int : 374 ms P-R-T Axes : 063 012 031 degrees QTc Int : 441 ms Sinus rhythm PACs Nonspecific ST and T wave abnormality Abnormal ECG When compared with ECG of 15-MAR-2022 15:12, Sinus rhythm has replaced Atrial fibrillation Vent. rate has decreased BY [address] no longer depressed in Anterior leads T wave inversion no longer evident in Anterolateral leads Referred By: Generic ED Physician Electronically Signed By:BLANCHE GONSALEZ
--- NOTE | 2022-03-16 13:00 | CA_ITS ---
Transthoracic Echocardiogram Amended Patient (Last, First, Middle): Juan Holland, Gender: Male Date of : 1955 Age: 66 Procedure Date: 03/16/2022 Procedure Type: Transthoracic Echocardiogram Location: [facility] [place] Height: 157.48 cm Weight: 62.6 kg BSA: 1.63 m2 Heart Rate: bpm BP: 130 / 52 mmHg [employer]: Referring MD: Michael Og MD Symptoms: new onset afib Study Quality: Fair ECG Rhythm: Atrial Fibrillation Conclusions: - The left ventricular systolic function is mildly decreased. The visually estimated ejection fraction is between 45-50%. - The inferolateral wall and basal inferior segment are akinetic. - Evidence suggests grade II (moderate) diastolic dysfunction. - There is mild mitral valve regurgitation. Findings Left Ventricle Normal left ventricular cavity size. The left ventricular systolic function is mildly decreased. The visually estimated ejection fraction is between 45 50%. There is evidence of regional wall motion abnormalities. E/E prime ratio is between 8 and 15 consistent with indeterminate filling pressures. Evidence suggests grade II (moderate) diastolic dysfunction. There is mild septal asymmetric hypertrophy. Wall Motion Rest Echo Findings The inferolateral wall and basal inferior segment are akinetic. Right Ventricle Normal right ventricular cavity size and systolic function. Atria The left atrium is severely dilated. The right atrium is normal in size. Aortic Valve There is a normal trileaflet aortic valve. There is no aortic valve stenosis. There is no aortic valve regurgitation. Mitral Valve The mitral valve appears normal. There is mild mitral valve regurgitation. There is no mitral valve stenosis. Pulmonic Valve The pulmonic valve was not well visualized. Tricuspid Valve There is mild tricuspid valve regurgitation. The pulmonary artery systolic pressure is normal. Great Vessels The aortic annulus, sinuses of valsalva, and asc aorta are normal in size. Venous The inferior vena cava is normal in size and collapses greater than 50% with inspiration. Pericardium/Pleural There are no definitive echocardiographic findings of tamponade physiology. Small to moderate circumferential pericardial effusion. Prior Study Comparison No significant change compared to prior study dated: 02/26/2018. Measurements 2D Linear Measurements IVSd: 1.07 0.6-0.9/0.6-1.0 cm LVIDd: 5.58 3.9-5.3/4.2-5.9 cm LVIDd Index: 3.42 2.4-3.2/2.2-3.1 cm/m2 LVIDs: 4.44 2.0-3.6 cm LVPWd: 0.93 0.7-1.1 cm Ao Root: 3.20 2.1-3.5 cm LA Diam: 4.00 2.7-3.8/3.0-4.0 cm LAIDs Index: 2.45 1.5-2.3 cm/m2 LV Mass: 271.89 67-162/88-224 g LV Mass Index: 166.80 43-95/49-115 g/m2 LVOT Diam: 2.20 3.0+(-)1.3 cm 2D Volumes LA Vol: 61.00 2D Systolic Function EF 4C: 49.40 >55% EF 2C: 47.40 >55% EF BiP: 50.00 >55% Mitral Valve MV Pk E: 1.13 MV PK A: 0.53 MV Decel Time: 147.00 E/A: 2.10 E'Lateral: 8.49 E'Medial: 8.16 E/E' Med: 13.80 E/E' Lat: 13.30 PHT: 43.00 MVA PHT: 5.12 Decel [place]: 7.70 Aortic Valve AoV Pk Eben: 1.43 AoV Mn Eben: 0.91 AoV VTI: 0.35 AoV Pk Grad: 8.00 Aov Mn Grad: 4.00 JOY Cont.VTI: 2.62 LVOT LVOT Pk Eben: 1.04 LVOT Mn Eben: 0.67 LVOT VTI: 0.24 LVOT Pk Grad: 4.00 LVOT Mn Grad: 2.00 LVOT Diam: 2.20 LVOT Area: 3.80 Diastolic Function MV Pk E: 1.13 MV Pk A: 0.53 E/A: 2.10 E'Medial: 8.16 E/E' Med: 13.80 E' Laterial: 8.49 E/E' Lat: 13.30 Right Ventricle TAPSE (mm): 23.00 TVS' Eben: 12.00 Tricuspid Valve TR Pk Eben: 2.34 TR Pk Grad: 22.00 RA Press: 3.00 RVSP: 25.00 Great Vessels Aorta Ao Root-2D: 3.20 2.0-3.7 cm Ao Asc: 3.00 2.1-3.4 cm Pulmonary Valve PV Pk Eben: 0.83 Peak PV Grad: 3.00 Updated in Other Vendor System with Status of Final Jarvis Clark MD electronically signed on 03/16/2022 3:24:54 PM with status of Final
[2022-03-16 13:16] LABS: Glucose, Whole Blood 159 mg/dL (60-115)
[2022-03-16] MEDS: Sevelamer Carbonate Powder 800 MG POWD.PACK 2400 MG PO (13:27)
[2022-03-16] MEDS: Insulin Lispro 100 UNIT/ML 3 ML VIAL SUBCUT ×2 (13:29→21:33)
--- NOTE | 2022-03-16 14:11 | HO.PM.IMPN ---
Subjective Subjective Date of Service: 03/16/22 Interval History: Despite interviewing in [place], pt unable to give history likely due to advanced dementia Review of Systems Review of Systems: Yes Unobtainable due to mental status Physical Exam Vital Signs: Vital Signs: Last Vital Signs Temp 98.0 F 03/16/22 12:00 Pulse 80 03/16/22 12:00 Resp 17 03/16/22 12:00 BP 143/37 H 03/16/22 12:00 Pulse Ox 97 03/16/22 12:00 BMI result Body Mass Index 25.2 Gen: in no acute distress HEENT: sclera anicteric, moist mucus membranes Neck: supple Lungs: clear to auscultation bilaterally Heart: irregularly irregular, no murmurs Abd: soft, non-tender, non-distended Ext: no edema Skin: warm/well-perfused Neuro: disoriented Psych: impaired insight Objective Data Active Medications Acetaminophen (Acetaminophen 325 Mg Tablet) 650 mg PO Q6H PRN PRN Reason: Pain, Mild (Pain Scale 1-3) Atorvastatin Calcium (Atorvastatin Calcium 80 Mg Tablet) 80 mg PO BEDTIME EVA Bisacodyl (Bisacodyl 5 Mg Tablet.Dr) 5 mg PO DAILY PRN PRN Reason: constipation Dextrose (Dextrose 50 % 25 Gm/50 Ml Syringe) 25 gm IVPUSH Q15M PRN; Protocol PRN Reason: per Hypoglycemia Standing Ord. Glucose (Glucose Gel 15 Gm Gel..Gram.) 15 gm PO Q15M PRN; Protocol PRN Reason: per Hypoglycemia Standing Ord. Heparin Sodium (Porcine) (Heparin Sodium,Porcine 5,000 Unit/Ml Vial) 5,000 unit SUBCUT Q8H [facility] Last Admin: 03/16/22 08:40 Dose: 5,000 unit Documented by: LUCRECIA Insulin Glargine (Insulin Glargine,Hum.Rec.Anlog 100 Unit/Ml 10 Ml Vial) 10 unit SUBCUT BEDTIME [facility] Insulin Human Lispro (Insulin Lispro 100 Unit/Ml 3 Ml Vial) 0 unit SUBCUT QIDACHS [facility]; Protocol Last Admin: 03/16/22 13:29 Dose: 2 unit Documented by: LUCRECIA Isosorbide Dinitrate (Isosorbide Dinitrate 10 Mg Tablet) 10 mg PO TID [facility]; Protocol Last Admin: 03/16/22 08:40 Dose: 10 mg Documented by: LUCRECIA Lactulose (Lactulose 20 Gm/30 Ml Solution) 20 gm PO BID [facility] Last Admin: 03/16/22 08:39 Dose: 20 gm Documented by: LUCRECIA Melatonin (Melatonin 3 Mg Tablet) 6 mg PO BEDTIME PRN PRN Reason: Insomnia Omeprazole (Omeprazole 40 Mg Capsule.Dr) 40 mg PO BID@0630,1630 [facility] Paroxetine HCl (Paroxetine Hcl 20 Mg Tablet) 20 mg PO DAILY [facility] Last Admin: 03/16/22 08:40 Dose: 20 mg Documented by: LUCRECIA Senna (Sennosides 8.6 Mg Tablet) 17.2 mg PO BEDTIME PRN PRN Reason: Constipation Sevelamer Carbonate (Sevelamer Carbonate Powder 800 Mg Powd.Pack) 2,400 mg PO TIDAC [facility] Last Admin: 03/16/22 13:27 Dose: 2,400 mg Documented by: LUCRECIA Sodium Chloride (0.9 % Sodium Chloride Flush 3 Ml Syringe) 3 ml IVFLUSH QSHIFT [facility] Last Admin: 03/16/22 08:40 Dose: 3 ml Documented by: LUCRECIA Trazodone HCl (Trazodone Hcl 50 Mg Tablet) 50 mg PO BEDTIME [facility] Vitamin D (Cholecalciferol (Vitamin D3) 25 Mcg Tablet) 50 mcg PO DAILY [facility] Last Admin: 03/16/22 08:40 Dose: 50 mcg Documented by: LCURECIA Labs CBC & Chem 7: 03/16/22 07:24 03/16/22 07:24 Labs: Laboratory Results - last 24 hr 03/15/22 03/15/22 03/15/22 15:12 15:19 15:19 MCV 100.8 H MCH 31.6 MCHC 31.3 RDW 14.0 Plt Count 197 MPV 11.1 Immature Gran % (Auto) 0.5 H Neut % (Auto) 78.1 H Lymph % (Auto) 11.8 L [place] % (Auto) 7.5 Eos % (Auto) 1.8 Baso % (Auto) 0.3 Lymph # (Auto) 1.1 L [place] # (Auto) 0.7 Eos # (Auto) 0.2 Baso # (Auto) 0.0 Abs Immat Gran (auto) 0.05 H Absolute Neuts (auto) 7.2 Absolute Nucleated RBC 0.000 Nucleated RBC % (auto) 0.0 Anion Gap 18 Estim Creat Clear Calc 13.3 Estimated GFR 15 POC Glucose 144 H Random Glucose 167 H D Lactic Acid Lactic Acid F/U @ 2Hr Calcium 8.8 Total Bilirubin 0.4 AST 26 D ALT 11 Alkaline Phosphatase 151 H D Total Protein 7.0 Albumin 3.4 L TSH 2.79 COVID-19 (AMANDA) COVID-19 Clin Com 03/15/22 03/15/22 03/15/22 15:19 18:17 20:56 MCV MCH MCHC RDW Plt Count MPV Immature Gran % (Auto) Neut % (Auto) Lymph % (Auto) [place] % (Auto) Eos % (Auto) Baso % (Auto) Lymph # (Auto) [place] # (Auto) Eos # (Auto) Baso # (Auto) Abs Immat Gran (auto) Absolute Neuts (auto) Absolute Nucleated RBC Nucleated RBC % (auto) Anion Gap Estim Creat Clear Calc Estimated GFR POC Glucose 130 H Random Glucose Lactic Acid 2.4 H* Lactic Acid F/U @ 2Hr 1.0 Calcium Total Bilirubin AST ALT Alkaline Phosphatase Total Protein Albumin TSH COVID-19 (AMANDA) COVID-19 Clin Com 03/15/22 03/16/22 03/16/22 22:14 07:15 07:24 MCV 100.8 H MCH 31.1 MCHC 30.9 L RDW 14.1 Plt Count 207 MPV 11.2 Immature Gran % (Auto) 0.5 H Neut % (Auto) 75.2 H Lymph % (Auto) 12.2 L [place] % (Auto) 10.6 Eos % (Auto) 1.1 Baso % (Auto) 0.4 Lymph # (Auto) 1.2 [place] # (Auto) 1.0 Eos # (Auto) 0.1 Baso # (Auto) 0.0 Abs Immat Gran (auto) 0.05 H Absolute Neuts (auto) 7.2 Absolute Nucleated RBC 0.000 Nucleated RBC % (auto) 0.0 Anion Gap Estim Creat Clear Calc Estimated GFR POC Glucose 107 Random Glucose Lactic Acid Lactic Acid F/U @ 2Hr Calcium Total Bilirubin AST ALT Alkaline Phosphatase Total Protein Albumin TSH COVID-19 (AMANDA) Negative COVID-19 Clin Com See Note 03/16/22 03/16/22 07:24 13:13 MCV MCH MCHC RDW Plt Count MPV Immature Gran % (Auto) Neut % (Auto) Lymph % (Auto) [place] % (Auto) Eos % (Auto) Baso % (Auto) Lymph # (Auto) [place] # (Auto) Eos # (Auto) Baso # (Auto) Abs Immat Gran (auto) Absolute Neuts (auto) Absolute Nucleated RBC Nucleated RBC % (auto) Anion Gap 14 Estim Creat Clear Calc 9.3 Estimated GFR 10 POC Glucose 159 H Random Glucose 122 H Lactic Acid Lactic Acid F/U @ 2Hr Calcium 8.9 Total Bilirubin AST ALT Alkaline Phosphatase Total Protein Albumin TSH COVID-19 (AMANDA) COVID-19 Clin Com Assessment and Plan (1) Encephalopathy: Status: Resolved (2) Anemia: Status: Acute (3) ESRD (end stage renal disease): Status: Acute Plan hospital d#2 66yo M long-term care resident of [facility] with ESRD on HD, recent NSTEMI, recent GI bleed, severe anemia, HTN, HLD, DM2 sent in from HD where he developed hypotension found to have new-onset AF/RVR # hypotension - likely due to HD. given 5mg midodrine in ED, 500mL NS at HD and again in ED. BP improved. # AF/RVR - received IV diltiazem in ED, rate now controlled without any agent - TTE + Cardiology consult pending - poor anticoagulation candidate due to anemia/recent GI bleed # anemia of ESRD - epo as per Nephrology team # ESRD on HD - Nephrology consult. Last HD yesterday # CAD, recent STEMI - continue Isordil, statin; not on ASA due to recent GI bleed/anemia # dementia - continue risperidone + paroxetine + trazodone # DM2 - basal/bolus insulin # VTE ppx - UFH In my clinical judgment, the patient requires continued hospitalization for the following reasons: hypotension/AF-RVR Quality Stroke Does the patient have a stroke diagnosis?: No VTE Prior VTE?: No VTE Risk Level:: Medical - moderate - high VTE Device Contraindication: Treatment Not Indicated VTE Drug Contraindication: N/A - Med Ordered
[2022-03-16 17:54] LABS: Glucose, Whole Blood 215 mg/dL (60-115)
[2022-03-16 19:50] LABS: Glucose, Whole Blood 167 mg/dL (60-115)
[2022-03-16] MEDS: risperiDONE 0.25 MG TABLET PO (21:32)
[2022-03-16] MEDS: traZODone HCL 50 MG TABLET PO (21:32)
[2022-03-16] MEDS: Atorvastatin Calcium 80 MG TABLET PO (21:33)
[2022-03-16] MEDS: Insulin Glargine,Hum.rec.anlog 100 UNIT/ML 10 ML VIAL 10 UNIT SUBCUT (21:33)
[2022-03-17] VITALS (9 sets, daily range): BP systolic 88–160; BP diastolic 47–88; PULSE 65–134; RESP 17–20; TEMP 36.3–36.9; O2SAT 96–98
--- NOTE | 2022-03-17 03:12 | ECG_ITS ---
Test Reason : Tachycardia Blood Pressure : / mmHG Vent. Rate : 158 BPM Atrial Rate : 000 BPM P-R Int : 000 ms QRS Dur : 086 ms QT Int : 302 ms P-R-T Axes : 000 020 255 degrees QTc Int : 489 ms Atrial fibrillation with rapid ventricular response Marked ST abnormality, possible anterior subendocardial injury Abnormal ECG When compared with ECG of 16-MAR-2022 13:39, Atrial fibrillation has replaced Sinus rhythm Vent. rate has increased BY [address] now depressed in Anterior leads Referred By: Michael Og Electronically Signed By:BLANCHE GONSALEZ
[2022-03-17] MEDS: dilTIAZem HCL 50 MG/10 ML VIAL IVPUSH (03:40)
[2022-03-17 06:52] LABS: Anion Gap 21 (12-20); Blood Urea Nitrogen 52 mg/dL (9-16); Carbon Dioxide 22 mmol/L (22-29); Chloride 98 mmol/L (96-108); Creatinine Clr Calc Pharmacy 6.9; Estimated Glomerular Filt Rate 7; Glucose Random 74 mg/dL (60-115); Magnesium 2.1 mg/dL (1.6-2.6); Potassium 4.1 mmol/L (3.3-5.1); Sodium 137 mmol/L (135-145)
--- NOTE | 2022-03-17 06:58 | PC.NURSE ---
Overnight pt became tachy, HR 110-150s, BP 158/88, pt denied any pain or SOB. MD notified. EKG ordered, showed Afib w/ RVR. PRN IV Cardizem given. Pt converted to NS on tele, HR 70-90s, BP 132/60. Pt still denying any pain or SOB. MD updated. BMP and Mag labs ordered. Pt laying comfortably in bed. High fall risk protocol and telemonitor in place.
[2022-03-17 08:11] LABS: Glucose, Whole Blood 67 mg/dL (60-115)
[2022-03-17] MEDS: Cholecalciferol (Vitamin D3) 25 MCG TABLET 50 MCG PO (09:11)
[2022-03-17] MEDS: Isosorbide Dinitrate 10 MG TABLET PO (09:11)
[2022-03-17] MEDS: PARoxetine HCL 20 MG TABLET PO (09:11)
[2022-03-17] MEDS: Sevelamer Carbonate Powder 800 MG POWD.PACK 2400 MG PO ×2 (09:14→18:22)
[2022-03-17] MEDS: Heparin Sodium,Porcine 5,000 UNIT/ML VIAL 5000 UNIT SUBCUT ×3 (09:18→23:36)
[2022-03-17] MEDS: 0.9 % Sodium Chloride Flush 3 ML SYRINGE IVFLUSH ×3 (09:19→21:01)
--- NOTE | 2022-03-17 10:06 | PM.CNCAR ---
History of Present Illness History of Present Illness Date of Service: 03/17/22 Chief complaint: Hypotension Narrative: This is a cardiology consultation regarding atrial fibrillation. Multiple medical comorbidities including hypertension, hyperlipidemia, diabetes, recent NSTEMI, recent GI bleeding but treated conservatively, dementia, admitted to the hospital mainly for hypotension post hemodialysis. Per H and P, he was having his usual hemodialysis but then systolic blood pressure was in the 50s and he got IV fluids and sent to the ER. Patient does have baseline confusion. When I questioned him regarding any cardiac symptoms like angina or shortness of breath, he stating no. Because of atrial fibrillation on telemetry, we were asked to see him. Patient is really not able to give much information because of dementia. At this time, he denies all cardiac symptoms. Review of Systems Review of Systems: Yes all other systems are reviewed and are negative Constitutional: Constitutional: Reports as per HPI Eyes: Eyes: Reports as per HPI ENT: Reports as per HPI Cardiovascular: Cardiovascular: Reports as per HPI, Denies acrocyanosis, Denies cool extremities, Denies chest pain, Denies leg edema, Denies lightheadedness, Denies palpitations and Denies dyspnea Respiratory: Respiratory: Reports as per HPI, Reports no additional respiratory complaints and Denies dyspnea Gastrointestinal: Gastrointestinal: Reports as per HPI and Reports no additional gastrointestinal complaints Genitourinary: Genitourinary: Reports no additional male genitourinary complaints and Reports as per HPI Musculoskeletal: Musculoskeletal: Reports no additional musculoskeletal complaints and Reports as per HPI Integumentary/Breasts: Skin/Breast: Reports system reviewed and no additional complaints, except as docu Neurologic: Reports system reviewed and no additional complaints, except as documented, Reports as per HPI and Reports confusion Psychiatric: Psychiatric: Reports no additional psychiatric complaints, Reports as per HPI and Reports confusion Endocrine: Endocrine: Reports no additional endocrine complaints, Reports as per HPI and Denies palpitations Hematologic/Lymphatic: Hematologic/Lymphatic: Reports no additional hematologic/lymphatic complaints and Reports as per HPI Allergic/Immunologic: Allergic/Immunologic: Reports no additional allergic/immunologic complaints and Reports as per HPI [facility] Past Medical History Medical History (Updated 03/17/22 @ 10:12 by Jarvis Clark MD) Dementia ESRD (end stage renal disease) on dialysis GI bleed NSTEMI (non-ST elevated myocardial infarction) Other and unspecified hyperlipidemia Type 2 diabetes mellitus with unspecified complications Family History Pertinent family history: Patient unable to give this information due to underlying dementia. Social History Social History Household Members: None Housing: Unknown / Unable to assess Do you presently have visiting nurse or other home services: No (unknown) Unable to assess alcohol history related to: Unable to respond Alcohol intake: never Patient Tobacco Use Status: Former Tobacco user Advance Directives Date on File: 03/16/22 Current occupational status: disabled Meds Allergies Allergy/AdvReac Type Severity Reaction Status Date / Time Penicillins [PCN] Allergy Intermediate ITCHING Verified 03/15/22 15:03 Active Medications: Current Medications Acetaminophen (Acetaminophen 325 Mg Tablet) 650 mg PO Q6H PRN PRN Reason: Pain, Mild (Pain Scale 1-3) Atorvastatin Calcium (Atorvastatin Calcium 80 Mg Tablet) 80 mg PO BEDTIME [facility] Last Admin: 03/16/22 21:33 Dose: 80 mg Documented by: Bisacodyl (Bisacodyl 5 Mg Tablet.Dr) 5 mg PO DAILY PRN PRN Reason: constipation Dextrose (Dextrose 50 % 25 Gm/50 Ml Syringe) 25 gm IVPUSH Q15M PRN; Protocol PRN Reason: per Hypoglycemia Standing Ord. Diltiazem HCl (Diltiazem Hcl 50 Mg/10 Ml Vial) 5 mg IVPUSH Q4H PRN PRN Reason: HR>125 Last Admin: 03/17/22 03:40 Dose: 5 mg Documented by: Glucose (Glucose Gel 15 Gm Gel..Gram.) 15 gm PO Q15M PRN; Protocol PRN Reason: per Hypoglycemia Standing Ord. Heparin Sodium (Porcine) (Heparin Sodium,Porcine 5,000 Unit/Ml Vial) 5,000 unit SUBCUT Q8H [facility] Last Admin: 03/17/22 09:18 Dose: 5,000 unit Documented by: Insulin Glargine (Insulin Glargine,Hum.Rec.Anlog 100 Unit/Ml 10 Ml Vial) 10 unit SUBCUT BEDTIME [facility] Last Admin: 03/16/22 21:33 Dose: 10 unit Documented by: Insulin Human Lispro (Insulin Lispro 100 Unit/Ml 3 Ml Vial) 0 unit SUBCUT QIDACHS [facility]; Protocol Last Admin: 03/17/22 09:17 Dose: Not Given Documented by: Isosorbide Dinitrate (Isosorbide Dinitrate 10 Mg Tablet) 10 mg PO TID [facility]; Protocol Last Admin: 03/17/22 09:11 Dose: 10 mg Documented by: Lactulose (Lactulose 20 Gm/30 Ml Solution) 20 gm PO BID [facility] Last Admin: 03/17/22 09:22 Dose: Not Given Documented by: Melatonin (Melatonin 3 Mg Tablet) 6 mg PO BEDTIME PRN PRN Reason: Insomnia Omeprazole (Omeprazole 40 Mg Capsule.Dr) 40 mg PO BID@0630,1630 [facility] Last Admin: 03/17/22 05:51 Dose: Not Given Documented by: Paroxetine HCl (Paroxetine Hcl 20 Mg Tablet) 20 mg PO DAILY [facility] Last Admin: 03/17/22 09:11 Dose: 20 mg Documented by: Risperidone (Risperidone 0.25 Mg Tablet) 0.25 mg PO BEDTIME [facility] Last Admin: 03/16/22 21:32 Dose: 0.25 mg Documented by: Senna (Sennosides 8.6 Mg Tablet) 17.2 mg PO BEDTIME PRN PRN Reason: Constipation Sevelamer Carbonate (Sevelamer Carbonate Powder 800 Mg Powd.Pack) 2,400 mg PO TIDAC [facility] Last Admin: 03/17/22 09:14 Dose: 2,400 mg Documented by: Sodium Chloride (0.9 % Sodium Chloride Flush 3 Ml Syringe) 3 ml IVFLUSH QSHIFT [facility] Last Admin: 03/17/22 09:19 Dose: 3 ml Documented by: Trazodone HCl (Trazodone Hcl 50 Mg Tablet) 50 mg PO BEDTIME [facility] Last Admin: 03/16/22 21:32 Dose: 50 mg Documented by: Vitamin D (Cholecalciferol (Vitamin D3) 25 Mcg Tablet) 50 mcg PO DAILY [facility] Last Admin: 03/17/22 09:11 Dose: 50 mcg Documented by: Home Medications Medication Instructions Recorded Confirmed Last Taken Type atorvastatin 80 mg tablet 80 mg PO BEDTIME 02/22/22 03/15/22 Unknown History bisacodyl 5 mg tablet,delayed 1 tab PO DAILY PRN 02/22/22 03/15/22 Unknown History release (Dulcolax (bisacodyl)) cholecalciferol (vitamin D3) 50 50 mcg PO DAILY 02/22/22 03/15/22 Unknown History mcg (2,000 unit) tablet insulin glargine 100 unit/mL (3 10 unit SUBCUT BEDTIME 02/22/22 03/15/22 Unknown History mL) subcutaneous pen (Lantus Solostar U-100 Insulin) insulin lispro 100 unit/mL 1 sliding scale dose SUBCUT 02/22/22 03/15/22 Unknown History subcutaneous solution (Humalog USEASDIRECTD U-100 Insulin) isosorbide dinitrate 10 mg tablet 10 mg PO TID 02/22/22 03/15/22 Unknown History lactulose 10 gram/15 mL oral 30 ml PO BID 02/22/22 03/15/22 Unknown History solution (Enulose) paroxetine HCl 20 mg tablet (Paxil) 20 mg PO DAILY 02/22/22 03/15/22 Unknown History risperidone 0.25 mg tablet 0.25 mg PO BEDTIME 02/22/22 03/15/22 Unknown History sevelamer carbonate 2.4 gram oral 2.4 g PO TIDAC 02/22/22 03/15/22 Unknown History powder packet (Renvela) trazodone 50 mg tablet 50 mg PO BEDTIME 02/22/22 03/15/22 Unknown History Physical Exam Vital Signs: Vital Signs: Last Vital Signs Temp 98.0 F 03/17/22 07:27 Pulse 72 03/17/22 07:27 Resp 18 03/17/22 07:27 BP 141/70 H 03/17/22 07:27 Pulse Ox 98 03/17/22 07:27 BMI result Body Mass Index 25.2 Const: General: comfortable, no acute distress and confusion Orientation/consciousness: confusion HEENT: Other: Unremarkable Head: Yes normal to inspection Neck: Neck: Yes normal visual inspection Chest: Chest palpation & inspection: normal inspection of the chest Resp: Auscultation: clear to auscultation bilaterally Cardio: Palpation: normal PMI Heart sounds: S1 normal heart sound present, S2 normal heart sound present, no gallops, no murmurs and no rubs GI: Palpation (GI): Soft to palpation Back/Spine/Pelvis: Other: unremarkable Skin: General skin exam: no rashes or lesions noted Neuro: General: confusion Extrem: General: Yes normal to inspection Psych: Other: dementia/baseline confusion Objective Labs and Meds Result diagrams: 03/16/22 07:24 03/17/22 06:11 Lab results: Laboratory Results - last 24 hr 03/16/22 03/16/22 03/16/22 13:13 17:52 19:43 Sodium Potassium Chloride Carbon Dioxide Anion Gap BUN Creatinine Estim Creat Clear Calc Estimated GFR POC Glucose 159 H 215 H 167 H Random Glucose Calcium Magnesium 03/17/22 03/17/22 06:11 07:37 Sodium 137 Potassium 4.1 Chloride 98 Carbon Dioxide 22 Anion Gap 21 H BUN 52 H D Creatinine 7.88 H* Estim Creat Clear Calc 6.9 Estimated GFR 7 POC Glucose 67 Random Glucose 74 D Calcium 9.0 Magnesium 2.1 ECG Interpretation: EKG with atrial fibrillation at 158/Min; ST depression in the precordial leads. In the EKG prior to that, he was in sinus rhythm with PACs. Assessment and Plan (1) Atrial fibrillation with rapid ventricular response: Status: Acute (2) ESRD (end stage renal disease) on dialysis: Status: Acute (3) GI bleed: Status: Acute (4) Type 2 diabetes mellitus with unspecified complications: Status: Acute (5) Other and unspecified hyperlipidemia: Status: Acute (6) Dementia: Status: Acute Plan Labs is hemoglobin is 7.9. Creatinine of 7.8. BUN 52. Chest x-ray with no acute abnormality. Echocardiogram with LVEF 45-50%; basal inferior/inferolateral akinesis and moderate diastolic dysfunction. Overall, atrial fibrillation in gentleman with history of recent GI bleeding, dementia and multiple medical comorbidities. Currently is back in sinus rhythm. We can use or beta-blockers for prevention of recurrences. Otherwise, with regard to anticoagulation, seems to be a poor candidate due to recent gastrointestinal bleeding. At that time, it does not appear that he underwent endoscopy and was treated conservatively as he also had a concurrent NSTEMI. He continues to be anemic with hemoglobin of 7.9. Discussed with Dr. Foster. Procedures Date of Service Date of Service: 03/17/22
--- NOTE | 2022-03-17 10:25 | P.PNIM_ITS ---
Subjective Subjective Date of Service: 03/17/22 Interval History: This history was taken in Bulgarian from the patient. Limited historian due to dementia. Denies any complaints. To HD later today. AF/RVR up to 160s overnight, now sinus Review of Systems Review of Systems: Yes Unobtainable due to mental status Physical Exam Vital Signs: Vital Signs: Last Vital Signs Temp 98.0 F 03/17/22 07:27 Pulse 72 03/17/22 07:27 Resp 18 03/17/22 07:27 BP 141/70 H 03/17/22 07:27 Pulse Ox 98 03/17/22 07:27 BMI result Body Mass Index 25.2 Gen: in no acute distress HEENT: sclera anicteric, moist mucus membranes Neck: supple Lungs: clear to auscultation bilaterally Heart: irregularly irregular, no murmurs Abd: soft, non-tender, non-distended Ext: no edema Skin: warm/well-perfused Neuro: disoriented Psych: impaired insight Objective Data Active Medications Acetaminophen (Acetaminophen 325 Mg Tablet) 650 mg PO Q6H PRN PRN Reason: Pain, Mild (Pain Scale 1-3) Atorvastatin Calcium (Atorvastatin Calcium 80 Mg Tablet) 80 mg PO BEDTIME [facility] Last Admin: 03/16/22 21:33 Dose: 80 mg Documented by: MICKEY Bisacodyl (Bisacodyl 5 Mg Tablet.Dr) 5 mg PO DAILY PRN PRN Reason: constipation Dextrose (Dextrose 50 % 25 Gm/50 Ml Syringe) 25 gm IVPUSH Q15M PRN; Protocol PRN Reason: per Hypoglycemia Standing Ord. Diltiazem HCl (Diltiazem Hcl 50 Mg/10 Ml Vial) 5 mg IVPUSH Q4H PRN PRN Reason: HR>125 Last Admin: 03/17/22 03:40 Dose: 5 mg Documented by: MICKEY Comments: MD notified prior to med administration Glucose (Glucose Gel 15 Gm Gel..Gram.) 15 gm PO Q15M PRN; Protocol PRN Reason: per Hypoglycemia Standing Ord. Heparin Sodium (Porcine) (Heparin Sodium,Porcine 5,000 Unit/Ml Vial) 5,000 unit SUBCUT Q8H [facility] Last Admin: 03/17/22 09:18 Dose: 5,000 unit Documented by: OLIVA Insulin Glargine (Insulin Glargine,Hum.Rec.Anlog 100 Unit/Ml 10 Ml Vial) 10 unit SUBCUT BEDTIME [facility] Last Admin: 03/16/22 21:33 Dose: 10 unit Documented by: MICKEY Insulin Human Lispro (Insulin Lispro 100 Unit/Ml 3 Ml Vial) 0 unit SUBCUT QIDACHS [facility]; Protocol Last Admin: 03/17/22 09:17 Dose: Not Given Documented by: OLIVA Non-Admin Reason: No Insulin Coverage Melatonin (Melatonin 3 Mg Tablet) 6 mg PO BEDTIME PRN PRN Reason: Insomnia Metoprolol Succinate (Metoprolol Succinate Er 25 Mg Tab.Er.24h) 25 mg PO DAILY [facility]; Protocol Omeprazole (Omeprazole 40 Mg Capsule.Dr) 40 mg PO BID@0630,1630 [facility] Last Admin: 03/17/22 05:51 Dose: Not Given Documented by: MICKEY Non-Admin Reason: Patient Refused Paroxetine HCl (Paroxetine Hcl 20 Mg Tablet) 20 mg PO DAILY [facility] Last Admin: 03/17/22 09:11 Dose: 20 mg Documented by: OLIVA Risperidone (Risperidone 0.25 Mg Tablet) 0.25 mg PO BEDTIME [facility] Last Admin: 03/16/22 21:32 Dose: 0.25 mg Documented by: MICKEY Senna (Sennosides 8.6 Mg Tablet) 17.2 mg PO BEDTIME PRN PRN Reason: Constipation Sevelamer Carbonate (Sevelamer Carbonate Powder 800 Mg Powd.Pack) 2,400 mg PO TIDAC [facility] Last Admin: 03/17/22 09:14 Dose: 2,400 mg Documented by: OLIVA Sodium Chloride (0.9 % Sodium Chloride Flush 3 Ml Syringe) 3 ml IVFLUSH QSHIFT [facility] Last Admin: 03/17/22 09:19 Dose: 3 ml Documented by: OLIVA Trazodone HCl (Trazodone Hcl 50 Mg Tablet) 50 mg PO BEDTIME [facility] Last Admin: 03/16/22 21:32 Dose: 50 mg Documented by: MICKEY Vitamin D (Cholecalciferol (Vitamin D3) 25 Mcg Tablet) 50 mcg PO DAILY [facility] Last Admin: 03/17/22 09:11 Dose: 50 mcg Documented by: HO.[email or web address] Labs CBC & Chem 7: 03/16/22 07:24 03/17/22 06:11 Labs: Laboratory Results - last 24 hr 03/16/22 03/16/22 03/16/22 13:13 17:52 19:43 Anion Gap Estim Creat Clear Calc Estimated GFR POC Glucose 159 H 215 H 167 H Random Glucose Calcium Magnesium 03/17/22 03/17/22 06:11 07:37 Anion Gap 21 H Estim Creat Clear Calc 6.9 Estimated GFR 7 POC Glucose 67 Random Glucose 74 D Calcium 9.0 Magnesium 2.1 TTE 03/16/22 - The left ventricular systolic function is mildly decreased.? ? The visually estimated ejection fraction is between 45-50%.? ? ? - The inferolateral wall and basal inferior segment are akinetic. - Evidence suggests grade II (moderate) diastolic dysfunction. ? - There is mild mitral valve regurgitation.? Microbiology Microbiology Results: Microbiology 03/15/22 16:14 Blood Culture - Preliminary Blood - Venous No growth after 24 hours. 03/15/22 15:19 Blood Culture - Preliminary Blood - Venous No growth after 24 hours. Assessment and Plan (1) Encephalopathy: Status: Resolved (2) Anemia: Status: Acute (3) ESRD (end stage renal disease): Status: Acute Plan hospital d#3 66yo M long-term care resident of [facility] with ESRD on HD, recent NSTEMI, recent GI bleed, severe anemia, HTN, HLD, DM2 sent in from HD where he developed hypotension found to have new-onset AF/RVR # hypotension - likely due to HD. given 5mg midodrine in ED, 500mL NS at HD and again in ED. BP improved. D/c Isordil per Cardiology # AF/RVR - received IV diltiazem in ED, now in sinus but had AF/RVR overnight - start metoprolol succinate per Cardiology - poor anticoagulation candidate due to anemia/recent GI bleed without diagnosis of source # anemia of ESRD - epo as per Nephrology team # ESRD on HD - Nephrology consult. HD today. # CAD, recent STEMI - continue statin; not on ASA due to recent GI bleed/anemia; d/c Isordil # chronic HFrEF # ischemic cardiomyopathy - metoprolol as above # dementia - continue risperidone + paroxetine + trazodone # DM2 - basal/bolus insulin # VTE ppx - UFH In my clinical judgment, the patient requires continued hospitalization for the following reasons: rate contrl Quality Stroke Does the patient have a stroke diagnosis?: No VTE Prior VTE?: No VTE Risk Level:: Medical - moderate - high VTE Device Contraindication: Treatment Not Indicated VTE Drug Contraindication: N/A - Med Ordered
[2022-03-17] MEDS: Metoprolol Succinate ER 25 MG TAB.ER.24H PO (11:00)
[2022-03-17] MEDS: LORazepam 2 MG/ML VIAL 0.5 MG IVPUSH (11:01)
[2022-03-17] MEDS: Metoprolol Tartrate 5 MG/5 ML VIAL IVPUSH (11:57)
--- NOTE | 2022-03-17 12:19 | W.PM.DNNEP ---
Subjective Subjective This patient was seen during dialysis. Interval history: Seen during HD BP remains low Physical Exam Vital Signs: Vital Signs: Last Vital Signs Temp 98.0 F 03/17/22 07:27 Pulse 72 03/17/22 07:27 Resp 18 03/17/22 07:27 BP 141/70 H 03/17/22 07:27 Pulse Ox 98 03/17/22 07:27 BMI result Body Mass Index 25.2 Const: General: cooperative and no acute distress Neck: Neck: Yes supple and Yes no JVD Resp: Effort & Inspection: normal respiratory effort Auscultation: no rales Cardio: Jugular venous distension: no JVD Heart sounds: no murmurs GI: Palpation (GI): Soft to palpation and No Ascites present Neuro: Motor exam (neuro): No Asterixis during motor activity present Assessment & Plan Assessment and plan (1) ESRD (end stage renal disease): Status: Acute Plan ESRD ON HD TTS No s.s of uremia A.Fib Management per cardiology Watch BP Time Spent With Patient Time: Total time spent is greater than 50% in coordination of care (as documented) at patient's floor/unit and/or counseling patient: Procedures Date of Service Date of Service: 03/17/22
[2022-03-17 14:40] LABS: Glucose, Whole Blood 147 mg/dL (60-115)
--- NOTE | 2022-03-17 14:51 | MHC.CM.PN ---
Addendum entered by Olga Shaw 03/17/22 16:19: TASK SENT TO [facility] TO CORRECT PTS ADDRESS. Original Note: PT IS A LTC RESIDENT OF [facility] PT HAS A MOLST ON FILE, NO HCP. MESSAGE SENT TO [facility] REQUESTING A HCP IF AVAILABLE. DCP RETURN TO [facility] VIA BLS
[2022-03-17] MEDS: Acetaminophen 325 MG TABLET 650 MG PO (15:23)
[2022-03-17] MEDS: Midodrine HCl 5 MG TABLET PO (16:12)
[2022-03-17] MEDS: Albumin Human 25 % 100 ML IV (16:12)
[2022-03-17 19:53] LABS: Glucose, Whole Blood 138 mg/dL (60-115)
[2022-03-17] MEDS: traZODone HCL 50 MG TABLET PO (21:00)
[2022-03-17] MEDS: Atorvastatin Calcium 80 MG TABLET PO (21:00)
[2022-03-17] MEDS: Insulin Glargine,Hum.rec.anlog 100 UNIT/ML 10 ML VIAL 10 UNIT SUBCUT (21:00)
[2022-03-17] MEDS: risperiDONE 0.25 MG TABLET PO (21:00)
[2022-03-18 03:18] VITALS: BP 120/58; PULSE 65; RESP 17; TEMP 36.9; O2SAT 99
[2022-03-18 06:53] VITALS: BP 125/58; PULSE 68; RESP 20; TEMP 37.2; O2SAT 100
[2022-03-18 07:24] LABS: Glucose, Whole Blood 51 mg/dL (60-115)
[2022-03-18 09:09] LABS: Glucose, Whole Blood 146 mg/dL (60-115)
[2022-03-18] MEDS: Cholecalciferol (Vitamin D3) 25 MCG TABLET 50 MCG PO (10:09)
[2022-03-18] MEDS: PARoxetine HCL 20 MG TABLET PO (10:10)
[2022-03-18] MEDS: Metoprolol Succinate ER 25 MG TAB.ER.24H PO (10:10)
[2022-03-18] MEDS: Sevelamer Carbonate Powder 800 MG POWD.PACK 2400 MG PO ×3 (10:10→18:06)
[2022-03-18] MEDS: Heparin Sodium,Porcine 5,000 UNIT/ML VIAL 5000 UNIT SUBCUT ×3 (10:12→23:56)
[2022-03-18] MEDS: 0.9 % Sodium Chloride Flush 3 ML SYRINGE IVFLUSH ×3 (10:16→20:22)
--- NOTE | 2022-03-18 11:01 | HO.PM.IMPN ---
Subjective Subjective Date of Service: 03/18/22 Interval History: No complaints Denies pain AF/RVR yesterday for nearly 2hr, now sinus Upon return from HD yesterday, pt was pale and lethargic with hypotension. Given 25g of IV albumin with improvement/resolution. This history was taken in Romansh from the patient. Review of Systems Review of Systems: Yes all other systems are reviewed and are negative Physical Exam Vital Signs: Vital Signs: Last Vital Signs Temp 99.0 F 03/18/22 06:53 Pulse 68 03/18/22 06:53 Resp 20 03/18/22 06:53 BP 125/58 L 03/18/22 06:53 Pulse Ox 100 03/18/22 06:53 BMI result Body Mass Index 25.2 Gen: in no acute distress HEENT: sclera anicteric, moist mucus membranes Neck: supple Lungs: clear to auscultation bilaterally Heart: regular, no murmurs Abd: soft, non-tender, non-distended Ext: no edema Skin: warm/well-perfused Neuro: disoriented Psych: impaired insight Objective Data Active Medications Acetaminophen (Acetaminophen 325 Mg Tablet) 650 mg PO Q6H PRN PRN Reason: Pain, Mild (Pain Scale 1-3) Last Admin: 03/17/22 15:23 Dose: 650 mg Documented by: OLIVA Atorvastatin Calcium (Atorvastatin Calcium 80 Mg Tablet) 80 mg PO BEDTIME [facility] Last Admin: 03/17/22 21:00 Dose: 80 mg Documented by: MICKEY Bisacodyl (Bisacodyl 5 Mg Tablet.Dr) 5 mg PO DAILY PRN PRN Reason: constipation Dextrose (Dextrose 50 % 25 Gm/50 Ml Syringe) 25 gm IVPUSH Q15M PRN; Protocol PRN Reason: per Hypoglycemia Standing Ord. Diltiazem HCl (Diltiazem Hcl 50 Mg/10 Ml Vial) 5 mg IVPUSH Q4H PRN PRN Reason: HR>125 Last Admin: 03/17/22 03:40 Dose: 5 mg Documented by: MICKEY Comments: notified prior to med administration Glucose (Glucose Gel 15 Gm Gel..Gram.) 15 gm PO Q15M PRN; Protocol PRN Reason: per Hypoglycemia Standing Ord. Heparin Sodium (Porcine) (Heparin Sodium,Porcine 5,000 Unit/Ml Vial) 5,000 unit SUBCUT Q8H [facility] Last Admin: 03/18/22 10:12 Dose: 5,000 unit Documented by: OLIVA Insulin Human Lispro (Insulin Lispro 100 Unit/Ml 3 Ml Vial) 0 unit SUBCUT QIDACHS [facility]; Protocol Last Admin: 03/18/22 10:16 Dose: Not Given Documented by: OLIVA Non-Admin Reason: No Insulin Coverage Melatonin (Melatonin 3 Mg Tablet) 6 mg PO BEDTIME PRN PRN Reason: Insomnia Metoprolol Succinate (Metoprolol Succinate Er 25 Mg Tab.Er.24h) 25 mg PO DAILY [facility]; Protocol Last Admin: 03/18/22 10:10 Dose: 25 mg Documented by: OLIVA Omeprazole (Omeprazole 40 Mg Capsule.Dr) 40 mg PO BID@0630,1630 [facility] Last Admin: 03/18/22 06:26 Dose: Not Given Documented by: MICKEY Non-Admin Reason: Patient Refused Paroxetine HCl (Paroxetine Hcl 20 Mg Tablet) 20 mg PO DAILY [facility] Last Admin: 03/18/22 10:10 Dose: 20 mg Documented by: OLIVA Risperidone (Risperidone 0.25 Mg Tablet) 0.25 mg PO BEDTIME [facility] Last Admin: 03/17/22 21:00 Dose: 0.25 mg Documented by: MICKEY Senna (Sennosides 8.6 Mg Tablet) 17.2 mg PO BEDTIME PRN PRN Reason: Constipation Sevelamer Carbonate (Sevelamer Carbonate Powder 800 Mg Powd.Pack) 2,400 mg PO TIDAC [facility] Last Admin: 03/18/22 10:10 Dose: 2,400 mg Documented by: OLIVA Sodium Chloride (0.9 % Sodium Chloride Flush 3 Ml Syringe) 3 ml IVFLUSH QSHIFT [facility] Last Admin: 03/18/22 10:16 Dose: 3 ml Documented by: OLIVA Trazodone HCl (Trazodone Hcl 50 Mg Tablet) 50 mg PO BEDTIME [facility] Last Admin: 03/17/22 21:00 Dose: 50 mg Documented by: MICKEY Vitamin D (Cholecalciferol (Vitamin D3) 25 Mcg Tablet) 50 mcg PO DAILY [facility] Last Admin: 03/18/22 10:09 Dose: 50 mcg Documented by: OLIVA Labs CBC & Chem 7: 03/16/22 07:24 03/17/22 06:11 Labs: Laboratory Results - last 24 hr 03/17/22 03/17/22 03/18/22 14:36 19:28 06:55 POC Glucose 147 H 138 H 51 L* 03/18/22 09:05 POC Glucose 146 H Microbiology Microbiology Results: Microbiology 03/15/22 16:14 Blood Culture - Preliminary Blood - Venous No growth after 48 hours. 03/15/22 15:19 Blood Culture - Preliminary Blood - Venous No growth after 48 hours. Assessment and Plan (1) Encephalopathy: Status: Resolved (2) Anemia: Status: Acute (3) ESRD (end stage renal disease): Status: Acute Plan hospital d#4 66yo M long-term care resident of [facility] with ESRD on HD, recent NSTEMI, recent GI bleed, severe anemia, HTN, HLD, DM2 sent in from HD where he developed hypotension found to have new-onset pAF/RVR # hypotension associated with HD - on presentation in ED, given 5mg midodrine in ED, 500mL NS at HD and again in [facility]. - yesterday given 100 mL 25% albumin, will need to give with HD going forward - to avoid further midodrine to prevent tachyarrhythima - d/c'ed hypotension # AF/RVR - received IV diltiazem in ED, now in sinus - started metoprolol succinate per Cardiology for prevention of recurrence - poor anticoagulation candidate due to anemia/recent GI bleed without diagnosis of source # anemia of ESRD - epo as per Nephrology team # ESRD on HD - Nephrology consulted. HD TuThSa # CAD, recent STEMI - continue statin; not on ASA due to recent GI bleed/anemia; d/c'ed Isordil due to hypotension # chronic HFrEF # ischemic cardiomyopathy - metoprolol as above # dementia - continue risperidone + paroxetine + trazodone # DM2 - basal/bolus insulin # VTE ppx - UFH In my clinical judgment, the patient requires continued hospitalization for the following reasons: rate control, hypotension Quality Stroke Does the patient have a stroke diagnosis?: No VTE Prior VTE?: No VTE Risk Level:: Medical - moderate - high VTE Device Contraindication: Treatment Not Indicated VTE Drug Contraindication: N/A - Med Ordered
[2022-03-18 11:06] VITALS: BP 131/63; PULSE 69; RESP 20; TEMP 37.4; O2SAT 98
[2022-03-18 11:27] LABS: Glucose, Whole Blood 154 mg/dL (60-115)
[2022-03-18] MEDS: Insulin Lispro 100 UNIT/ML 3 ML VIAL SUBCUT ×2 (11:51→20:18)
--- NOTE | 2022-03-18 12:10 | P.PNNP_ITS ---
Subjective Subjective Date of Service: 03/18/22 Interval history: No complaints Denies pain AF/RVR yesterday for nearly 2hr, now sinus Upon return from HD yesterday, pt was pale and lethargic with hypotension. Given 25g of IV albumin with improvement/resolution. This history was taken in [place] from the patient. Physical Exam Vital Signs: Vital Signs: Last Vital Signs Temp 99.4 F 03/18/22 11:06 Pulse 69 03/18/22 11:06 Resp 20 03/18/22 11:06 BP 131/63 03/18/22 11:06 Pulse Ox 98 03/18/22 11:06 BMI result Body Mass Index 25.2 Const: General: comfortable and confusion Orientation/consciousness: confusion HEENT: Other: Unremarkable Head: Yes normal to inspection Neck: Neck: Yes supple Resp: Effort & Inspection: normal respiratory effort Auscultation: clear to auscultation bilaterally and no rales Cardio: Jugular venous distension: no JVD Palpation: normal PMI Heart sounds: no rubs GI: Palpation (GI): Soft to palpation and No Ascites present Back/Spine/Pelvis: Other: unremarkable Skin: General skin exam: no rashes or lesions noted Neuro: General: confusion Motor exam (neuro): No Asterixis during motor activity present Psych: Other: dementia/baseline confusion Objective Data Labs CBC & Chem 7: 03/16/22 07:24 03/17/22 06:11 Labs: Laboratory Results - last 24 hr 03/17/22 03/17/22 03/18/22 14:36 19:28 06:55 POC Glucose 147 H 138 H 51 L* 03/18/22 03/18/22 09:05 11:08 POC Glucose 146 H 154 H Microbiology Microbiology Results: Microbiology 03/15/22 16:14 Blood - Venous Blood Culture - Preliminary No growth after 48 hours. 03/15/22 15:19 Blood - Venous Blood Culture - Preliminary No growth after 48 hours. Procedures Date of Service Date of Service: 03/18/22 Assessment & Plan Assessment and plan (1) ESRD (end stage renal disease): Status: Acute Plan ESRD ON HD TTS No s.s of uremia Hypotension post HD Will limit fluid removal IV ALbumin if BP drops Not adding Midodrine yet due to A.fib A.Fib Management per cardiology Watch BP Time Spent With Patient Time: Total time spent is greater than 50% in coordination of care (as documented) at patient's floor/unit and/or counseling patient: Progress Note: Quality Stroke Does the patient have a stroke diagnosis?: No
[2022-03-18 15:00] VITALS: BP 154/68; PULSE 72; RESP 18; TEMP 37; O2SAT 99
[2022-03-18 16:26] LABS: Glucose, Whole Blood 150 mg/dL (60-115)
[2022-03-18] MEDS: Omeprazole 40 MG CAPSULE.DR PO (18:13)
[2022-03-18 18:55] VITALS: BP 146/67; PULSE 68; RESP 17; TEMP 36.3; O2SAT 95
[2022-03-18] MEDS: traZODone HCL 50 MG TABLET PO (20:18)
[2022-03-18] MEDS: risperiDONE 0.25 MG TABLET PO (20:18)
[2022-03-18] MEDS: Atorvastatin Calcium 80 MG TABLET PO (20:18)
[2022-03-18 20:30] LABS: Glucose, Whole Blood 198 mg/dL (60-115)
[2022-03-18 23:14] VITALS: BP 100/50; PULSE 67; RESP 16; TEMP 37.4; O2SAT 98
[2022-03-19 03:10] VITALS: BP 133/58; PULSE 71; RESP 16; TEMP 37.2; O2SAT 97
[2022-03-19] MEDS: Omeprazole 40 MG CAPSULE.DR PO ×2 (05:44→16:43)
[2022-03-19 07:12] VITALS: BP 112/65; PULSE 66; RESP 18; TEMP 37.1; O2SAT 95
[2022-03-19 07:16] LABS: Glucose, Whole Blood 196 mg/dL (60-115)
[2022-03-19] MEDS: 0.9 % Sodium Chloride Flush 3 ML SYRINGE IVFLUSH ×2 (08:00→16:43)
[2022-03-19] MEDS: Heparin Sodium,Porcine 5,000 UNIT/ML VIAL 5000 UNIT SUBCUT ×2 (08:50→16:42)
--- NOTE | 2022-03-19 09:30 | P.PNIM_ITS ---
Subjective Subjective Date of Service: 03/19/22 Interval History: This history was taken in [place] from the patient. Choked overnight, requiring Heimlich. Went into junctional bradycardia with HR in 30s. Resolved but junctional bradycardia recurred this AM. Pt denies lightheadness. Review of Systems Review of Systems: Yes all other systems are reviewed and are negative Physical Exam Vital Signs: Vital Signs: Last Vital Signs Temp 98.8 F 03/19/22 07:12 Pulse 66 03/19/22 07:12 Resp 18 03/19/22 07:12 BP 112/65 03/19/22 07:12 Pulse Ox 95 03/19/22 07:12 BMI result Body Mass Index 25.2 Gen: in no acute distress HEENT: sclera anicteric, moist mucus membranes Neck: supple Lungs: clear to auscultation bilaterally Heart: regular, no murmurs Abd: soft, non-tender, non-distended Ext: no edema Skin: warm/well-perfused Neuro: disoriented Psych: impaired insight Objective Data Active Medications Acetaminophen (Acetaminophen 325 Mg Tablet) 650 mg PO Q6H PRN PRN Reason: Pain, Mild (Pain Scale 1-3) Last Admin: 03/17/22 15:23 Dose: 650 mg Documented by: OLIVA Atorvastatin Calcium (Atorvastatin Calcium 80 Mg Tablet) 80 mg PO BEDTIME [facility] Last Admin: 03/18/22 20:18 Dose: 80 mg Documented by: RONA Bisacodyl (Bisacodyl 5 Mg Tablet.Dr) 5 mg PO DAILY PRN PRN Reason: constipation Dextrose (Dextrose 50 % 25 Gm/50 Ml Syringe) 25 gm IVPUSH Q15M PRN; Protocol PRN Reason: per Hypoglycemia Standing Ord. Diltiazem HCl (Diltiazem Hcl 50 Mg/10 Ml Vial) 5 mg IVPUSH Q4H PRN PRN Reason: HR>125 Last Admin: 03/17/22 03:40 Dose: 5 mg Documented by: MICKEY Comments: notified prior to med administration Glucose (Glucose Gel 15 Gm Gel..Gram.) 15 gm PO Q15M PRN; Protocol PRN Reason: per Hypoglycemia Standing Ord. Heparin Sodium (Porcine) (Heparin Sodium,Porcine 5,000 Unit/Ml Vial) 5,000 unit SUBCUT Q8H [facility] Last Admin: 03/19/22 08:50 Dose: 5,000 unit Documented by: URI Insulin Human Lispro (Insulin Lispro 100 Unit/Ml 3 Ml Vial) 0 unit SUBCUT QIDACHS [facility]; Protocol Last Admin: 03/19/22 08:43 Dose: Not Given Documented by: URI Non-Admin Reason: unable to tolerate PO Melatonin (Melatonin 3 Mg Tablet) 6 mg PO BEDTIME PRN PRN Reason: Insomnia Metoprolol Succinate (Metoprolol Succinate Er 25 Mg Tab.Er.24h) 25 mg PO DAILY [facility]; Protocol Last Admin: 03/19/22 08:49 Dose: Not Given Documented by: URI Non-Admin Reason: not tolerating PO Omeprazole (Omeprazole 40 Mg Capsule.Dr) 40 mg PO BID@0630,1630 [facility] Last Admin: 03/19/22 05:44 Dose: 40 mg Documented by: RONA Paroxetine HCl (Paroxetine Hcl 20 Mg Tablet) 20 mg PO DAILY [facility] Last Admin: 03/19/22 08:49 Dose: Not Given Documented by: URI Non-Admin Reason: Not tolerating PO Risperidone (Risperidone 0.25 Mg Tablet) 0.25 mg PO BEDTIME [facility] Last Admin: 03/18/22 20:18 Dose: 0.25 mg Documented by: RONA Senna (Sennosides 8.6 Mg Tablet) 17.2 mg PO BEDTIME PRN PRN Reason: Constipation Sevelamer Carbonate (Sevelamer Carbonate Powder 800 Mg Powd.Pack) 2,400 mg PO TIDAC [facility] Last Admin: 03/19/22 08:44 Dose: Not Given Documented by: URI Non-Admin Reason: unable to tolerate PO Sodium Chloride (0.9 % Sodium Chloride Flush 3 Ml Syringe) 3 ml IVFLUSH QSHIFT [facility] Last Admin: 03/18/22 20:22 Dose: 3 ml Documented by: RONA Trazodone HCl (Trazodone Hcl 50 Mg Tablet) 50 mg PO BEDTIME [facility] Last Admin: 03/18/22 20:18 Dose: 50 mg Documented by: RONA Vitamin D (Cholecalciferol (Vitamin D3) 25 Mcg Tablet) 50 mcg PO DAILY [facility] Last Admin: 03/19/22 08:48 Dose: Not Given Documented by: URI Non-Admin Reason: not tolerating PO Labs CBC & Chem 7: 03/16/22 07:24 03/17/22 06:11 Labs: Laboratory Results - last 24 hr 03/18/22 03/18/22 03/18/22 11:08 16:13 20:00 POC Glucose 154 H 150 H 198 H 03/19/22 07:13 POC Glucose 196 H Assessment and Plan (1) Encephalopathy: Status: Resolved (2) Anemia: Status: Acute (3) ESRD (end stage renal disease): Status: Acute Plan hospital d#5 66yo M long-term care resident of [facility] with ESRD on HD, recent NSTEMI, recent GI bleed, severe anemia, HTN, HLD, DM2 sent in from HD where he developed hypotension found to have new-onset pAF/RVR # dysphagia - NPO pending ACCOUNT SERVICES ANALYST evaluation # hypotension associated with HD - on presentation in ED, given 5mg midodrine in ED, 500mL NS at HD and again in IMC. - given 100 mL 25% albumin after HD 03/17; will need to give with HD going forward - to avoid further midodrine to prevent tachyarrhythima - d/c'ed Isordil # AF/RVR - received IV diltiazem in ED, now in sinus. will discuss junctional bradycardia episodes with Cardiology - started metoprolol succinate per Cardiology for prevention of recurrence - poor anticoagulation candidate due to anemia/recent GI bleed without diagnosis of source # anemia of ESRD - epo as per Nephrology team # ESRD on HD - Nephrology consulted. HD TuThSa # CAD, recent STEMI - continue statin; not on ASA due to recent GI bleed/anemia; d/c'ed Isordil due to hypotension # chronic HFrEF # ischemic cardiomyopathy - metoprolol as above # dementia - continue risperidone + paroxetine + trazodone # DM2 - basal/bolus insulin # VTE ppx - UFH In my clinical judgment, the patient requires continued hospitalization for the following reasons: bradycardia, NPO Quality Stroke Does the patient have a stroke diagnosis?: No VTE Prior VTE?: No VTE Risk Level:: Medical - moderate - high VTE Device Contraindication: Treatment Not Indicated VTE Drug Contraindication: N/A - Med Ordered
--- NOTE | 2022-03-19 10:49 | CONS_ITS ---
DATE OF SERVICE: 03/16/2022 REASON FOR CONSULTATION: I was called to see this patient to assist in management of ESRD HISTORY OF PRESENT ILLNESS: To summarize, Juan is a 66-year-old man with history of ESRD, on maintenance hemodialysis at [facility]. Comes into the hospital because of low blood pressure, and he has an atrial fibrillation. Did this consultation with us for management of dialysis. PAST MEDICAL PROBLEMS: Ongoing medical problems include history of hypertension, hyperlipidemia, diabetes mellitus, coronary artery disease, ESRD, on dialysis, history of GI bleed, and some degree of dementia. ALLERGIES: HE IS ALLERGIC TO PENICILLIN. MEDICATIONS: Included atorvastatin, vitamin D, insulin, isosorbide, Paxil, sevelamer, trazodone. REVIEW OF SYSTEMS: He had low blood pressure. No chest pain, nausea, vomiting. No abdominal pain. No diarrhea, constipation. All other systems were reviewed. PHYSICAL EXAMINATION: GENERAL: Juan is a middle-aged man who is comfortable, not in distress. Neck: Supple. No JVD. LUNGS: Air entry equal. No rales. HEART: S1, S2 heard. No gallop. ABDOMEN: Soft, nontender. EXTREMITIES: No edema. No rash. No clubbing. He has an AV fistula with thrill and bruit. VITAL SIGNS: Blood pressure 127, 75. Pulse 72 and irregular. LABORATORY DATA: Hemoglobin 7.9, WBC 9.5 platelets normal. BUN 30, creatinine 5.8. IMPRESSION: 1. End-stage renal disease. On maintenance hemodialysis. No signs or symptoms of edema. Shall arrange for dialysis on Saturday, , Saturday as per protocol. 2. Anemia, which is multifactorial. Check iron stores. I will arrange for Epogen as per protocol. 3. Atrial fibrillation. I agree with current management. We will follow along with the team. Momo Navarrete MD BPA/MODL / [phone] MTDD
[2022-03-19 11:08] VITALS: BP 133/62; PULSE 58; RESP 20; TEMP 36.9; O2SAT 96
--- NOTE | 2022-03-19 11:44 | MHC.SL.SWA ---
Speech Pathologist Impression: Oropharyngeal dysphagia Risk of Aspiration Due to: Neurological Condition Dysphasia Diet Status: Upgrade Liquid Consistency and Strategies for Safe Swallow: Liquid Intake Recommendation: Thin Liquid Intake Strategies: Small Sips No Straws Solid Food Consistency: Dietary Recommendations: Grnd/Mech Altered (NDD2) Additional Modifications to Solid Foods: Recommend upgrade from NPO to modified diet GROUND/MECH ALTERED (NDD2) solids with sauces/gravies and THIN liquids, pills CRUSHED when possible in PUREE. Total supervision during all PO intake, with assistance and cuing as needed. Aspiration precautions apply. Updated care team of recommendations via [place] Message. [facility] will continue to follow. Oral Medication Intake: Crushed with Puree Please contact the pharmacy regarding appropriate crushable or liquid drug formulations that are available whenever modified delivery is recommended. Compensatory Strategies and Precautions to be Taken for Safe Swallow: Sitting Upright (90 deg) No Straw Small Bites and Sips Alternate Liquids/Solids Rate of Ingestion Change Avoid Specific Foods Supervision While Eating and Drinking for Safe Swallow: Total Supervision (1:1) Foods to Avoid: Tough, difficult to chew hard solids; sticky consistencies Swallowing Recommended Treatments: Recommendation for Speech: Inpatient Speech Therapy Comment: [facility] will continue to follow. Frequency/Duration: M-F Date Range for Service Req: Timeline to reassess: Power Plant Electrician Clinican/Clinical Fellow: No Supervisory Statement: I have reviewed and agree with the student/clinical fellow's documentation: N/A Speech Language Pathologist: Ashlie Armstrong M.A., [facility]
[2022-03-19 11:48] LABS: Glucose, Whole Blood 166 mg/dL (60-115)
--- NOTE | 2022-03-19 12:26 | PM.PNNEP ---
Subjective Subjective Date of Service: 03/19/22 Interval history: seen and examined events reviewed and noted no complaints Physical Exam Vital Signs: Vital Signs: Last Vital Signs Temp 98.4 F 03/19/22 11:08 Pulse 58 03/19/22 11:08 Resp 20 03/19/22 11:08 BP 133/62 03/19/22 11:08 Pulse Ox 96 03/19/22 11:08 BMI result Body Mass Index 25.2 Const: General: no acute distress HEENT: Head: Yes normocephalic and Yes atraumatic Neck: Neck: Yes supple Resp: Auscultation: diminished lung sounds Cardio: Heart sounds: S1 normal heart sound present and S2 normal heart sound present GI: Palpation (GI): Soft to palpation and nontender Extrem: General: Yes no pedal edema Objective Data Labs CBC & Chem 7: 03/16/22 07:24 03/17/22 06:11 Labs: Laboratory Results - last 24 hr 03/18/22 03/18/22 03/19/22 16:13 20:00 07:13 POC Glucose 150 H 198 H 196 H 03/19/22 11:06 POC Glucose 166 H Microbiology Microbiology Results: Microbiology 03/15/22 16:14 Blood - Venous Blood Culture - Preliminary No growth after 48 hours. 03/15/22 15:19 Blood - Venous Blood Culture - Preliminary No growth after 48 hours. Procedures Date of Service Date of Service: 03/19/22 Assessment & Plan Assessment and plan (1) ESRD (end stage renal disease): Status: Acute (2) Anemia: Status: Acute Plan usually has HD t-t-s presented with hypotension due to atrial fibrillation with RVR REC HD in am JEANETTE per protocol renal diet phosphate binders Time Spent With Patient Time: Total time spent is greater than 50% in coordination of care (as documented) at patient's floor/unit and/or counseling patient: Progress Note: Quality Stroke Does the patient have a stroke diagnosis?: No
--- NOTE | 2022-03-19 14:14 | PM.PNCARD ---
Subjective Subjective Date of Service: 03/19/22 Principal diagnosis: afib, junctional jillian, anemia Interval history: cardiology follow up for the above. Seen at 1200. Today he is observed resting in bed, no acute distress. Affect flat. Nods to some questions. Denies having sob, chest pains, palpitation. No cough present. No signs of bleeding according to his nurse. Choked on water this am and had swallowing eval completed with recommendation made. Review of Systems Review of Systems as above Yes Unobtainable due to mental condition Comments: Oriented X1 per his RN Physical Exam Vital Signs: Last Vital Signs Temp 98.4 F 03/19/22 11:08 Pulse 58 03/19/22 11:08 Resp 20 03/19/22 11:08 BP 133/62 03/19/22 11:08 Pulse Ox 96 03/19/22 11:08 BMI result Body Mass Index 25.2 Const General: no acute distress, alert and awake Neck Neck: Yes normal visual inspection and Yes no JVD Resp Effort & Inspection: normal respiratory effort, able to speak in complete sentences and not labored Auscultation: clear to auscultation bilaterally, no rales, no rhonchi and no wheezes Cardio Rate: regular rate Rhythm: regular rhythm Heart sounds: S1 normal heart sound present and S2 normal heart sound present Peripheral pulses: Peripheral pulses 2+ throughout GI Inspection: Yes normal to inspection Extrem General: Yes normal to inspection and No edema Objective Labs and Meds Result diagrams: 03/16/22 07:24 03/17/22 06:11 Lab results: Laboratory Results - last 24 hr 03/18/22 03/18/22 03/19/22 16:13 20:00 07:13 POC Glucose 150 H 198 H 196 H 03/19/22 11:06 POC Glucose 166 H Progress Note: A&P Assessment and plan (1) Bradycardia: Status: Acute Assessment and Plan: 2 brief episodes of bradycardia, sinus with junctional escape beats noted on Tele monitoring, rate in 30s, lasting seconds. Last evenings event occurred in setting of choking on food, requiring hiemlich maneuver and this am event occurred following episode of choking on water. His Tele otherwise is showing SR, 60-70s. He did undergo a swallowing eval this am. His bradycardiac episodes are most likely related vasovagal. Ongoing tele monitoring at this time. Take precautions to prevent further choking type episodes. (2) New onset a-fib: Status: Acute Assessment and Plan: Noted this admit. He did convert back to SR. He is on low dose Metoprolol which can be continued. CHADSVASc 2. Anticoagulation is indicated however Pt is poor candidate for anticoagulation due to recent GIB which was managed conservatively, anemia of chronic disease wit Hgb 7.9. No signs of bleeding at this time. He does have reported dementia and having episodes of dysphagia this admit. With finding of afib and not on anticoagulation, recommend an MRI to eval for CVA. Msg sent to hospitalist (3) ESRD (end stage renal disease): Status: Acute Assessment and Plan: Follows with nephrology. On dialysis (4) Anemia: Status: Acute Assessment and Plan: as above (5) Dementia: Status: Acute Time Spent With Patient Time: Total time spent is greater than 50% in coordination of care (as documented) at patient's floor/unit and/or counseling patient: 22 Progress Note: Quality Stroke Does the patient have a stroke diagnosis?: No Procedures Date of Service Date of Service: 03/19/22
--- NOTE | 2022-03-19 15:30 | MHC.CM.PN ---
Male 66 Hypotension r/t HD Med charges for AFIB and Bradycardia MRI ordered for dysphasia question CVA DP Return to ELS (bedhold) VIA BLS. An MRI has been ordered to r/o CVA.
[2022-03-19 16:00] VITALS: BP 134/60; PULSE 68; RESP 17; TEMP 36.7; O2SAT 98
--- NOTE | 2022-03-19 16:01 | MHC.SLORD ---
Speech Language Pathology Order Status: RN notified CARRIAGE FEEDER that patient has been coughing on thin liquids today. Attempted to see patient again this afternoon. Patient unavailable as he is away at CAT scan. Downgraded liquids to honey thick as precaution for now. Notified , RN, RD. Plan to re-evaluate tomorrow.
[2022-03-19 16:30] LABS: Glucose, Whole Blood 148 mg/dL (60-115)
[2022-03-19] MEDS: Sevelamer Carbonate Powder 800 MG POWD.PACK 2400 MG PO (16:43)
[2022-03-19 19:43] LABS: Glucose, Whole Blood 180 mg/dL (60-115)
[2022-03-19 19:47] VITALS: BP 127/60; PULSE 72; RESP 20; TEMP 36.8; O2SAT 96
[2022-03-19] MEDS: traZODone HCL 50 MG TABLET PO (20:54)
[2022-03-19] MEDS: risperiDONE 0.25 MG TABLET PO (20:55)
[2022-03-19] MEDS: Atorvastatin Calcium 80 MG TABLET PO (20:55)
[2022-03-19] MEDS: Insulin Lispro 100 UNIT/ML 3 ML VIAL SUBCUT (20:55)
[2022-03-20] VITALS: BP 116/67; PULSE 70; RESP 20; TEMP 36.6; O2SAT 97
[2022-03-20] MEDS: Heparin Sodium,Porcine 5,000 UNIT/ML VIAL 5000 UNIT SUBCUT (00:10)
[2022-03-20 03:56] VITALS: BP 123/57; PULSE 80; RESP 20; TEMP 36.1; O2SAT 92
[2022-03-20] MEDS: Omeprazole 40 MG CAPSULE.DR PO ×2 (06:02→16:57)
[2022-03-20 08:12] LABS: Glucose, Whole Blood 123 mg/dL (60-115)
[2022-03-20] MEDS: 0.9 % Sodium Chloride Flush 3 ML SYRINGE IVFLUSH ×3 (10:23→20:58)
--- NOTE | 2022-03-20 10:36 | PC.NURSE ---
patient refused medications, this nurse used peritoneal dialysis registered nurse to explain the importance of medications, pt still refused without giving explanation.
[2022-03-20 11:11] VITALS: BP 135/59; PULSE 77; RESP 17; TEMP 38.1; O2SAT 97
[2022-03-20 11:26] LABS: Glucose, Whole Blood 157 mg/dL (60-115)
[2022-03-20] MEDS: Albumin Human 25 % 100 ML IV (12:26)
[2022-03-20 15:21] VITALS: BP 137/65; PULSE 76; RESP 16; TEMP 37.8; O2SAT 98
--- NOTE | 2022-03-20 15:40 | HO.PM.IMPN ---
Subjective Subjective Date of Service: 03/20/22 Interval History: being followed for hypotension, receiving hemodialysis this morning denies chest pain, no palpitation, tele monitor showed bursts of atrial tachycardia. No recurrent episodes of bradycardia. Review of Systems Review of Systems: Yes all other systems are reviewed and are negative Physical Exam Vital Signs: Vital Signs: Last Vital Signs Temp 100.0 F 03/20/22 15:21 Pulse 76 03/20/22 15:21 Resp 16 03/20/22 15:21 BP 137/65 03/20/22 15:21 Pulse Ox 98 03/20/22 15:21 BMI result Body Mass Index 25.2 Const: Other: Gen: awake, alert, no acute distress Neck: supple , no JVD Lungs: clear to auscultation bilaterally Heart: regular, no murmurs Abd: soft, non-tender, non-distended, bowel sounds audible Ext: no edema Skin: warm/well-perfused Neuro: disoriented Psych: impaired insight Objective Data Active Medications Acetaminophen (Acetaminophen 325 Mg Tablet) 650 mg PO Q6H PRN PRN Reason: Pain, Mild (Pain Scale 1-3) Last Admin: 03/17/22 15:23 Dose: 650 mg Documented by: OLIVA Atorvastatin Calcium (Atorvastatin Calcium 80 Mg Tablet) 80 mg PO BEDTIME [facility] Last Admin: 03/19/22 20:55 Dose: 80 mg Documented by: DANIELLE Bisacodyl (Bisacodyl 5 Mg Tablet.) 5 mg PO DAILY PRN PRN Reason: constipation Dextrose (Dextrose 50 % 25 Gm/50 Ml Syringe) 25 gm IVPUSH Q15M PRN; Protocol PRN Reason: per Hypoglycemia Standing Ord. Glucose (Glucose Gel 15 Gm Gel..Gram.) 15 gm PO Q15M PRN; Protocol PRN Reason: per Hypoglycemia Standing Ord. Heparin Sodium (Porcine) (Heparin Sodium,Porcine 5,000 Unit/Ml Vial) 5,000 unit SUBCUT Q8H [facility] Last Admin: 03/20/22 10:34 Dose: Not Given Documented by: PRECIOUS Non-Admin Reason: Patient Refused Insulin Human Lispro (Insulin Lispro 100 Unit/Ml 3 Ml Vial) 0 unit SUBCUT QIDACHS [facility]; Protocol Last Admin: 03/20/22 12:38 Dose: Not Given Documented by: PRECIOUS Non-Admin Reason: patient unable to tolerate food Melatonin (Melatonin 3 Mg Tablet) 6 mg PO BEDTIME PRN PRN Reason: Insomnia Metoprolol Succinate (Metoprolol Succinate Er 25 Mg Tab.Er.24h) 25 mg PO DAILY [facility]; Protocol Last Admin: 03/20/22 10:34 Dose: Not Given Documented by: PRECIOUS Non-Admin Reason: Patient Refused Omeprazole (Omeprazole 40 Mg Capsule.Dr) 40 mg PO BID@0630,1630 [facility] Last Admin: 03/20/22 06:02 Dose: 40 mg Documented by: SENTHIL Paroxetine HCl (Paroxetine Hcl 20 Mg Tablet) 20 mg PO DAILY [facility] Last Admin: 03/20/22 10:34 Dose: Not Given Documented by: PRECIOUS Non-Admin Reason: Patient Refused Risperidone (Risperidone 0.25 Mg Tablet) 0.25 mg PO BEDTIME [facility] Last Admin: 03/19/22 20:55 Dose: 0.25 mg Documented by: DANIELLE Senna (Sennosides 8.6 Mg Tablet) 17.2 mg PO BEDTIME PRN PRN Reason: Constipation Sevelamer Carbonate (Sevelamer Carbonate Powder 800 Mg Powd.Pack) 2,400 mg PO TIDAC [facility] Last Admin: 03/20/22 12:37 Dose: Not Given Documented by: PRECIOUS Non-Admin Reason: Patient Refused Sodium Chloride (0.9 % Sodium Chloride Flush 3 Ml Syringe) 3 ml IVFLUSH QSHIFT [facility] Last Admin: 03/20/22 10:23 Dose: 3 ml Documented by: PRECIOUS Trazodone HCl (Trazodone Hcl 50 Mg Tablet) 50 mg PO BEDTIME [facility] Last Admin: 03/19/22 20:54 Dose: 50 mg Documented by: DANIELLE Vitamin D (Cholecalciferol (Vitamin D3) 25 Mcg Tablet) 50 mcg PO DAILY [facility] Last Admin: 03/20/22 10:34 Dose: Not Given Documented by: PRECIOUS Non-Admin Reason: Patient Refused Labs CBC & Chem 7: 03/16/22 07:24 03/17/22 06:11 Labs: Laboratory Results - last 24 hr 03/19/22 03/19/22 03/20/22 16:19 19:38 08:07 POC Glucose 148 H 180 H 123 H 03/20/22 11:14 POC Glucose 157 H Assessment and Plan (1) Encephalopathy: Status: Resolved (2) Anemia: Status: Acute (3) ESRD (end stage renal disease): Status: Acute Plan hospital d#5 66yo M long-term care resident of [facility] with ESRD on HD, recent NSTEMI, recent GI bleed, severe anemia, HTN, HLD, DM2 sent in from HD where he developed hypotension found to have new-onset pAF/RVR # dysphagia - seen by speech therapy currently tolerating ground and saray thick liquids, no recurrent episodes of choking or bradycardia. # hypotension associated with HD - on presentation in ED, given 5mg midodrine in ED, 500mL NS at HD and again in IMC. - given 100 mL 25% albumin after HD 03/17; will discuss with Nephrology regarding continued use of albumin with HD going forward to avoid further midodrine to prevent tachyarrhythima, blood pressure well controlled in last 48 hours # AF/RVR - received IV diltiazem in ED, now in sinus, noted to have burst of AFib with RVR /atrial tachycardia, patient remains asymptomatic no recurrent episodes of junctional bradycardia,that was thought to be related to vasovagal due to choking currently on low-dose beta-becky, will discuss further management of AFib RVR with cardiology - poor anticoagulation candidate due to anemia/recent GI bleed without diagnosis of source. # anemia of ESRD - epo as per Nephrology team # ESRD on HD - Nephrology consulted. continue HD TuThSa # CAD, recent STEMI - continue statin; not on ASA due to recent GI bleed/anemia; d/c'ed Isordil due to hypotension # chronic HFrEF/ ischemic cardiomyopathy - metoprolol as above # dementia - continue risperidone + paroxetine + trazodone # DM2 - blood sugars stable around 150s, continue basal/bolus insulin # VTE ppx - UFH In my clinical judgment, the patient requires continued hospitalization for the following reasons: atrial fibrillation with RVR Quality Stroke Does the patient have a stroke diagnosis?: No VTE Prior VTE?: No VTE Risk Level:: Medical - moderate - high VTE Device Contraindication: Treatment Not Indicated VTE Drug Contraindication: N/A - Med Ordered
--- NOTE | 2022-03-20 16:00 | PM.PNNEP ---
Subjective Subjective Date of Service: 03/20/22 Principal diagnosis: afib, junctional jillian, anemia Interval history: seen and examined discussed with medical attending had HD earlier Physical Exam Vital Signs: Vital Signs: Last Vital Signs Temp 100.0 F 03/20/22 15:21 Pulse 76 03/20/22 15:21 Resp 16 03/20/22 15:21 BP 137/65 03/20/22 15:21 Pulse Ox 98 03/20/22 15:21 BMI result Body Mass Index 25.2 Const: General: no acute distress HEENT: Head: Yes normocephalic and Yes atraumatic Neck: Neck: Yes supple Resp: Auscultation: diminished lung sounds Cardio: Heart sounds: S1 normal heart sound present and S2 normal heart sound present GI: Palpation (GI): Soft to palpation and nontender Extrem: General: Yes no pedal edema Objective Data Labs CBC & Chem 7: 03/16/22 07:24 03/17/22 06:11 Labs: Laboratory Results - last 24 hr 03/19/22 03/19/22 03/20/22 16:19 19:38 08:07 POC Glucose 148 H 180 H 123 H 03/20/22 11:14 POC Glucose 157 H Microbiology Microbiology Results: Microbiology 03/15/22 16:14 Blood - Venous Blood Culture - Preliminary No growth after 48 hours. 03/15/22 15:19 Blood - Venous Blood Culture - Preliminary No growth after 48 hours. Procedures Date of Service Date of Service: 03/20/22 Assessment & Plan Assessment and plan (1) ESRD (end stage renal disease): Status: Acute (2) Anemia: Status: Acute Plan usually has HD t-t-s presented with hypotension due to atrial fibrillation with RVR REC HD today optimize volume status JEANETTE per protocol renal diet phosphate binders Time Spent With Patient Time: Total time spent is greater than 50% in coordination of care (as documented) at patient's floor/unit and/or counseling patient: Progress Note: Quality Stroke Does the patient have a stroke diagnosis?: No
[2022-03-20 16:53] LABS: Glucose, Whole Blood 221 mg/dL (60-115)
--- NOTE | 2022-03-20 16:54 | MHC.SL.SWA ---
Speech Pathologist Impression: Risk of Aspiration Due to: Neurological Condition Dysphasia Diet Status: Liquid Consistency and Strategies for Safe Swallow: Liquid Intake Recommendation: Honey Thick Liquid Intake Strategies: Liquids by Teaspoon Only Solid Food Consistency: Dietary Recommendations: Grnd/Mech Altered (NDD2) Additional Modifications to Solid Foods: Recommend continue diet GROUND/MECH ALTERED (NDD2) solids with sauces/gravies and HONEY THICK liquids, pills CRUSHED when possible in PUREE. Total supervision during all PO intake, with assistance and cuing as needed. Aspiration precautions apply. Oral Medication Intake: Crushed with Puree Please contact the pharmacy regarding appropriate crushable or liquid drug formulations that are available whenever modified delivery is recommended. Compensatory Strategies and Precautions to be Taken for Safe Swallow: Sitting Upright (90 deg) No Straw Liquids from Spoon Alternate Liquids/Solids Rate of Ingestion Change Oral Check Supervision While Eating and Drinking for Safe Swallow: Total Supervision (1:1) Foods to Avoid: Tough, difficult to chew hard solids; sticky consistencies Swallowing Recommended Treatments: Compens. Strategy Educat. Recommendation for Speech: Inpatient Speech Therapy: 03/20 -Pt was awake and alert, head of bed was raised to 90 Degrees. Pt is Maltese speaking, was able to answer simple questions, but was at time confused (e.g. MD came in, asked Pt about Dialysis treatment today in y/n question, after MD left Pt asked Did he ask me about Dialysis? ). Pt was initially given swab with trace amount of ice water, pt immediately sucked on swab, then swallowed trace amount and coughed repeatedly. Pt was then given Tsp amounts of Honey thick liquid, which Pt tolerated well, with mild delay of oral phase and mild delay intiating swallow noted, no clinical s/s of aspiration. Pt was given entire cup to kahlil tolerance and management w/ no clinical signs of aspiration on multiple administrations. Pt was also given puree by tsp, with slightly longer oral phase, good clearance of oral cavity, mild delay initiating swallow, no clinical signs of aspiration. Nurse observed much of session, observed that Pt was safe on these consistencies. Recommend Pt continue on Ground Mechanical (NDD2) with HONEY THICK liquids, will full assist during meals, close supervision and monitoring for signs of aspiration. Liquids by tsp only. Comment: Recommend TOTAL SUPERVISION during all PO intake, provide assistance and cuing as needed. Frequency/Duration: M-F Date Range for Service Req: Timeline to reassess: Industrial Sweeper Cleaner Clinican/Clinical Fellow: No Supervisory Statement: I have reviewed and agree with the student/clinical fellow's documentation: N/A Speech Language Pathologist: Tanesha Louise M.A., CCC-MANAGER GRAPHIC
[2022-03-20] MEDS: Insulin Lispro 100 UNIT/ML 3 ML VIAL SUBCUT ×2 (16:56→20:58)
[2022-03-20] MEDS: Sevelamer Carbonate Powder 800 MG POWD.PACK 2400 MG PO (16:57)
[2022-03-20 19:31] VITALS: BP 144/64; PULSE 80; RESP 16; TEMP 38.5; O2SAT 98
[2022-03-20 20:44] LABS: Glucose, Whole Blood 170 mg/dL (60-115)
[2022-03-20] MEDS: Acetaminophen 325 MG TABLET 650 MG PO (20:58)
[2022-03-20] MEDS: traZODone HCL 50 MG TABLET PO (20:58)
[2022-03-20] MEDS: Atorvastatin Calcium 80 MG TABLET PO (20:58)
[2022-03-20] MEDS: risperiDONE 0.25 MG TABLET PO (20:58)
[2022-03-20 23:27] VITALS: BP 109/54; PULSE 70; RESP 18; TEMP 36.9; O2SAT 96
[2022-03-21 03:39] VITALS: BP 178/76; PULSE 79; RESP 18; TEMP 36.6; O2SAT 98
[2022-03-21] MEDS: Omeprazole 40 MG CAPSULE.DR PO ×2 (05:57→17:30)
[2022-03-21 07:50] LABS: Glucose, Whole Blood 152 mg/dL (60-115)
[2022-03-21 08:00] VITALS: BP 117/58; PULSE 71; RESP 16; TEMP 37.2; O2SAT 98
[2022-03-21] MEDS: Insulin Lispro 100 UNIT/ML 3 ML VIAL SUBCUT ×4 (08:00→21:19)
[2022-03-21] MEDS: Heparin Sodium,Porcine 5,000 UNIT/ML VIAL 5000 UNIT SUBCUT ×3 (08:00→23:16)
[2022-03-21 10:26] LABS: Anion Gap 16 (12-20); Blood Urea Nitrogen 45 mg/dL (9-16); Calcium 8.9 mg/dL (8.4-10.2); Carbon Dioxide 22 mmol/L (22-29); Chloride 101 mmol/L (96-108); Cholesterol 94 mg/dL; Creatinine Clr Calc Pharmacy 6.7; Estimated Glomerular Filt Rate 7; Glucose Random 147 mg/dL (60-115); HDL Cholesterol 23 mg/dL; LDL Cholesterol Calculated 52 mg/dl; Potassium 4.1 mmol/L (3.3-5.1); Sodium 135 mmol/L (135-145); Triglycerides 97 mg/dL
[2022-03-21] MEDS: 0.9 % Sodium Chloride Flush 3 ML SYRINGE IVFLUSH ×3 (10:45→21:19)
[2022-03-21] MEDS: Cholecalciferol (Vitamin D3) 25 MCG TABLET 50 MCG PO (10:46)
[2022-03-21] MEDS: PARoxetine HCL 20 MG TABLET PO (10:47)
[2022-03-21] MEDS: Metoprolol Succinate ER 25 MG TAB.ER.24H PO (10:47)
--- NOTE | 2022-03-21 10:55 | PM.PNNEP ---
Subjective Subjective Date of Service: 03/21/22 Principal diagnosis: afib, junctional jillian, anemia Interval history: seen and examined discussed with medical attending no complaints Physical Exam Vital Signs: Vital Signs: Last Vital Signs Temp 99.0 F 03/21/22 08:00 Pulse 71 03/21/22 08:00 Resp 16 03/21/22 08:00 BP 117/58 L 03/21/22 08:00 Pulse Ox 98 03/21/22 08:00 BMI result Body Mass Index 25.2 Const: General: no acute distress HEENT: Head: Yes normocephalic and Yes atraumatic Neck: Neck: Yes supple Resp: Auscultation: diminished lung sounds Cardio: Heart sounds: S1 normal heart sound present and S2 normal heart sound present GI: Palpation (GI): Soft to palpation and nontender Extrem: General: Yes no pedal edema Objective Data Labs CBC & Chem 7: 03/16/22 07:24 03/21/22 09:17 Labs: Laboratory Results - last 24 hr 03/20/22 03/20/22 03/20/22 11:14 16:49 20:36 Sodium Potassium Chloride Carbon Dioxide Anion Gap BUN Creatinine Estim Creat Clear Calc Estimated GFR POC Glucose 157 H 221 H 170 H Random Glucose Calcium Triglycerides Cholesterol LDL Cholesterol, Calc HDL Cholesterol 03/21/22 03/21/22 07:16 09:17 Sodium 135 Potassium 4.1 Chloride 101 Carbon Dioxide 22 Anion Gap 16 BUN 45 H Creatinine 8.11 H* Estim Creat Clear Calc 6.7 Estimated GFR 7 POC Glucose 152 H Random Glucose 147 H D Calcium 8.9 Triglycerides 97 Cholesterol 94 LDL Cholesterol, Calc 52 HDL Cholesterol 23 Microbiology Microbiology Results: Microbiology 03/15/22 16:14 Blood - Venous Blood Culture - Final No growth after 5 days. 03/15/22 15:19 Blood - Venous Blood Culture - Final No growth after 5 days. Procedures Date of Service Date of Service: 03/21/22 Assessment & Plan Assessment and plan (1) ESRD (end stage renal disease): Status: Acute (2) Anemia: Status: Acute Plan usually has HD t-t-s presented with hypotension due to atrial fibrillation with RVR REC HD tomorrow JEANETTE per protocol renal diet phosphate binders Time Spent With Patient Time: Total time spent is greater than 50% in coordination of care (as documented) at patient's floor/unit and/or counseling patient: Progress Note: Quality Stroke Does the patient have a stroke diagnosis?: No
[2022-03-21 11:04] VITALS: BP 154/69; PULSE 77; RESP 16; TEMP 37.4; O2SAT 96
[2022-03-21 11:39] LABS: Glucose, Whole Blood 174 mg/dL (60-115)
--- NOTE | 2022-03-21 12:58 | MHC.SLORD ---
Speech Language Pathology Order Status: FORENSIC DOCUMENT EXAMINER attempted to see patient for dysphagia treatment this afternoon. Patient unavailable, receiving care and being cleaned up by nursing. Plan to see patient tomorrow. [facility] and honey thick liquids. Please contact FORENSIC DOCUMENT EXAMINER via TIGER if there are any concerns.
[2022-03-21 15:44] VITALS: BP 139/59; PULSE 74; RESP 18; TEMP 37.2; O2SAT 97
--- NOTE | 2022-03-21 15:44 | PM.PNCARD ---
Subjective Subjective Date of Service: 03/21/22 Principal diagnosis: atrial tachycardia Interval history: Cardiology follow up of atrial tach. Seen at 1215. Today he is observed resting in bed. More alert than on last visit. Answers simple questions with yes and no responses. Full orientation is unclear. He does follow commands and [place]. No acute distress noted. Tele did shows 2 brief and one longer episode of atrial tach in last day. No clear afib seen. Review of Systems Review of Systems as above Yes Unobtainable due to mental condition Physical Exam Vital Signs: Last Vital Signs Temp 99.3 F 03/21/22 11:04 Pulse 77 03/21/22 11:04 Resp 16 03/21/22 11:04 BP 154/69 H 03/21/22 11:04 Pulse Ox 96 03/21/22 11:04 BMI result Body Mass Index 25.2 Const General: cooperative, no acute distress, alert and awake Neck Neck: Yes normal visual inspection and Yes no JVD Resp Effort & Inspection: normal respiratory effort, able to speak in complete sentences and not labored Auscultation: no rales, no rhonchi and no wheezes Cardio Rate: regular rate Rhythm: regular rhythm Heart sounds: S1 normal heart sound present and S2 normal heart sound present Peripheral pulses: Peripheral pulses 2+ throughout GI Inspection: Yes normal to inspection Extrem General: Yes normal to inspection and No edema Objective Labs and Meds Result diagrams: 03/16/22 07:24 03/21/22 09:17 Lab results: Laboratory Results - last 24 hr 03/20/22 03/20/22 03/21/22 16:49 20:36 07:16 Sodium Potassium Chloride Carbon Dioxide Anion Gap BUN Creatinine Estim Creat Clear Calc Estimated GFR POC Glucose 221 H 170 H 152 H Random Glucose Calcium Triglycerides Cholesterol LDL Cholesterol, Calc HDL Cholesterol 03/21/22 03/21/22 09:17 11:03 Sodium 135 Potassium 4.1 Chloride 101 Carbon Dioxide 22 Anion Gap 16 BUN 45 H Creatinine 8.11 H* Estim Creat Clear Calc 6.7 Estimated GFR 7 POC Glucose 174 H Random Glucose 147 H D Calcium 8.9 Triglycerides 97 Cholesterol 94 LDL Cholesterol, Calc 52 HDL Cholesterol 23 Progress Note: A&P Assessment and plan (1) Atrial tachycardia: Status: Acute Assessment and Plan: Tele monitoring showing episodes of regular narrow complex tachycardia, most consistent with atrial tach. Longest episode during night was 22 minutes. Unknown if pt was symptomatic. He is on Metoprolol for new PAF on admit. Has been in sinus rhythm since that time. He did have 2 very brief episodes of bradycardia, this admit with few junctional beats. Both episodes involved choking events and were likely vasovagal. He has not had any recurrent SB, no pauses or heart blocks seen. Echo 03/16/22 shows EF 45-50%, inferolateral wall, basal inferior segment akinetic, grade I diastolic dysfuntion. Will increase his Metoprolol xl to 50 mg daily. Ongoing tele monitoring while inpt. We will follow up tomorrow. (2) New onset a-fib: Status: Acute Assessment and Plan: Noted this admit. He did convert back to SR. He is on low dose Metoprolol which is now being increased as above. CHADSVASc 2. Anticoagulation is indicated however Pt is poor candidate for anticoagulation due to recent GIB which was managed conservatively, anemia of chronic disease wit Hgb 7.9. No signs of bleeding at this time.? He does have reported dementia and having episodes of dysphagia this admit. (3) Bradycardia: Status: Acute Assessment and Plan: No recurrent (4) Dementia: Status: Acute Assessment and Plan: Mentation reported to be at baseline (5) ESRD (end stage renal disease) on dialysis: Status: Acute Assessment and Plan: Dialysis 3 times weekly. Time Spent With Patient Time: Total time spent is greater than 50% in coordination of care (as documented) at patient's floor/unit and/or counseling patient: Progress Note: Quality Stroke Does the patient have a stroke diagnosis?: No Procedures Date of Service Date of Service: 03/21/22
[2022-03-21 16:11] LABS: Glucose, Whole Blood 242 mg/dL (60-115)
[2022-03-21] MEDS: Metoprolol Tartrate 25 MG TABLET PO (17:30)
--- NOTE | 2022-03-21 17:34 | HO.PM.IMPN ---
Subjective Subjective Date of Service: 03/21/22 Interval History: Patient awake alert offers no acute complaints, answer yes or no to simple questions, tele monitor showed multiple runs of atrial tachycardia, unknown if patient was asymptomatic, otherwise patient in normal sinus rhythm. Review of Systems Review of Systems: Yes Unobtainable due to mental status Physical Exam Vital Signs: Vital Signs: Last Vital Signs Temp 99.0 F 03/21/22 15:44 Pulse 74 03/21/22 15:44 Resp 18 03/21/22 15:44 BP 139/59 L 03/21/22 15:44 Pulse Ox 97 03/21/22 15:44 BMI result Body Mass Index 25.2 Const: Other: Gen: ?awake, alert, no acute distress Neck: supple , no JVD Lungs: clear to auscultation bilaterally Heart: regular, no murmurs Abd: soft, non-tender, non-distended, bowel sounds audible Ext: no edema Skin: warm/well-perfused Neuro: disoriented Psych: impaired insight Objective Data Active Medications Acetaminophen (Acetaminophen 325 Mg Tablet) 650 mg PO Q6H PRN PRN Reason: Pain, Mild (Pain Scale 1-3) Last Admin: 03/20/22 20:58 Dose: 650 mg Documented by: BOOM Atorvastatin Calcium (Atorvastatin Calcium 80 Mg Tablet) 80 mg PO BEDTIME [facility] Last Admin: 03/20/22 20:58 Dose: 80 mg Documented by: BOOM Bisacodyl (Bisacodyl 5 Mg Tablet.Dr) 5 mg PO DAILY PRN PRN Reason: constipation Dextrose (Dextrose 50 % 25 Gm/50 Ml Syringe) 25 gm IVPUSH Q15M PRN; Protocol PRN Reason: per Hypoglycemia Standing Ord. Glucose (Glucose Gel 15 Gm Gel..Gram.) 15 gm PO Q15M PRN; Protocol PRN Reason: per Hypoglycemia Standing Ord. Heparin Sodium (Porcine) (Heparin Sodium,Porcine 5,000 Unit/Ml Vial) 5,000 unit SUBCUT Q8H [facility] Last Admin: 03/21/22 17:29 Dose: 5,000 unit Documented by: VIVIANA Insulin Human Lispro (Insulin Lispro 100 Unit/Ml 3 Ml Vial) 0 unit SUBCUT QIDACHS [facility]; Protocol Last Admin: 03/21/22 17:30 Dose: 4 unit Documented by: VIVIANA Melatonin (Melatonin 3 Mg Tablet) 6 mg PO BEDTIME PRN PRN Reason: Insomnia Metoprolol Succinate (Metoprolol Succinate Er 50 Mg Tab.Er.24h) 50 mg PO DAILY [facility]; Protocol Omeprazole (Omeprazole 40 Mg Capsule.Dr) 40 mg PO BID@0630,1630 [facility] Last Admin: 03/21/22 17:30 Dose: 40 mg Documented by: VIVIANA Paroxetine HCl (Paroxetine Hcl 20 Mg Tablet) 20 mg PO DAILY [facility] Last Admin: 03/21/22 10:47 Dose: 20 mg Documented by: VIVIANA Risperidone (Risperidone 0.25 Mg Tablet) 0.25 mg PO BEDTIME [facility] Last Admin: 03/20/22 20:58 Dose: 0.25 mg Documented by: BOOM Senna (Sennosides 8.6 Mg Tablet) 17.2 mg PO BEDTIME PRN PRN Reason: Constipation Sevelamer Carbonate (Sevelamer Carbonate Powder 800 Mg Powd.Pack) 2,400 mg PO TIDAC [facility] Last Admin: 03/21/22 17:31 Dose: Not Given Documented by: VIVIANA Non-Admin Reason: Decreased Blood Pressure Sodium Chloride (0.9 % Sodium Chloride Flush 3 Ml Syringe) 3 ml IVFLUSH QSHIFT [facility] Last Admin: 03/21/22 17:31 Dose: 3 ml Documented by: VIVIANA Trazodone HCl (Trazodone Hcl 50 Mg Tablet) 50 mg PO BEDTIME [facility] Last Admin: 03/20/22 20:58 Dose: 50 mg Documented by: BOOM Vitamin D (Cholecalciferol (Vitamin D3) 25 Mcg Tablet) 50 mcg PO DAILY [facility] Last Admin: 03/21/22 10:46 Dose: 50 mcg Documented by: VIVIANA Labs CBC & Chem 7: 03/16/22 07:24 03/21/22 09:17 Labs: Laboratory Results - last 24 hr 03/20/22 03/21/22 03/21/22 20:36 07:16 09:17 Anion Gap 16 Estim Creat Clear Calc 6.7 Estimated GFR 7 POC Glucose 170 H 152 H Random Glucose 147 H D Calcium 8.9 Triglycerides 97 Cholesterol 94 LDL Cholesterol, Calc 52 HDL Cholesterol 23 03/21/22 03/21/22 11:03 16:07 Anion Gap Estim Creat Clear Calc Estimated GFR POC Glucose 174 H 242 H Random Glucose Calcium Triglycerides Cholesterol LDL Cholesterol, Calc HDL Cholesterol Microbiology Microbiology Results: Microbiology 03/15/22 16:14 Blood Culture - Final Blood - Venous No growth after 5 days. 03/15/22 15:19 Blood Culture - Final Blood - Venous No growth after 5 days. Assessment and Plan (1) Encephalopathy: Status: Resolved (2) Anemia: Status: Acute (3) ESRD (end stage renal disease): Status: Acute Plan hospital d#5 66yo M long-term care resident of [facility] with ESRD on HD, recent NSTEMI, recent GI bleed, severe anemia, HTN, HLD, DM2 sent in from HD where he developed hypotension found to have new-onset pAF/RVR # dysphagia - nurse notified patient is coughing and not able to swallow ground consistency therefore will change to pureed solid and continue honey thick liquids, will recommend speech therapy to re-evaluate patient # hypotension associated with HD - on presentation in ED, given 5mg midodrine , 500mL NS at HD and again in IMC. - given 100 mL 25% albumin after HD 03/17; spoke with doctor Timo he will arrange for albumin with HD to avoid further midodrine to prevent tachyarrhythima, blood pressure well controlled in last 48 hours # AF/RVR - received IV diltiazem in ED, now in sinus, noted to have burst of atrial tachycardia, question if patient was asymptomatic, no recurrent episodes of junctional bradycardia,that was thought to be related to vasovagal due to choking, case discussed with Cardiology they recommend to increase dose of metoprolol to 50 mg, will continue tele monitor poor anticoagulation candidate due to anemia/recent GI bleed without diagnosis of source. # anemia of ESRD - epo as per Nephrology team # ESRD on HD - Nephrology consulted. continue HD TuThSa # CAD, recent STEMI - continue statin, will lower dose to 40 mg since LDL 52, not on ASA due to recent GI bleed/anemia; d/c'ed Isordil due to hypotension. # chronic HFrEF/ ischemic cardiomyopathy - metoprolol as above # dementia - continue risperidone + paroxetine + trazodone # DM2 - blood sugars stable , continue basal/bolus insulin # VTE ppx - UFH In my clinical judgment, the patient requires continued hospitalization for the following reasons, recurrent episodes of atrial tachycardia needs tele monitoring. Quality Stroke Does the patient have a stroke diagnosis?: No VTE Prior VTE?: No VTE Risk Level:: Medical - moderate - high VTE Device Contraindication: Treatment Not Indicated VTE Drug Contraindication: N/A - Med Ordered
[2022-03-21 19:28] VITALS: PULSE 66; RESP 20; TEMP 37.7; O2SAT 99
[2022-03-21 20:59] LABS: Glucose, Whole Blood 177 mg/dL (60-115)
[2022-03-21] MEDS: Atorvastatin Calcium 40 MG TABLET PO (21:19)
[2022-03-21] MEDS: traZODone HCL 50 MG TABLET PO (21:19)
[2022-03-21] MEDS: risperiDONE 0.25 MG TABLET PO (21:19)
[2022-03-21 23:21] VITALS: BP 108/59; PULSE 64; RESP 18; TEMP 37.1; O2SAT 95
[2022-03-22 03:29] VITALS: BP 133/63; PULSE 63; RESP 18; TEMP 36.6; O2SAT 94
[2022-03-22] MEDS: Omeprazole 40 MG CAPSULE.DR PO (05:33)
[2022-03-22 07:15] VITALS: BP 132/64; PULSE 68; RESP 16; TEMP 36.9; O2SAT 99
[2022-03-22 07:48] LABS: Glucose, Whole Blood 194 mg/dL (60-115)
[2022-03-22] MEDS: Insulin Lispro 100 UNIT/ML 3 ML VIAL SUBCUT (08:25)
[2022-03-22] MEDS: Heparin Sodium,Porcine 5,000 UNIT/ML VIAL 5000 UNIT SUBCUT ×2 (08:25→14:47)
[2022-03-22] MEDS: 0.9 % Sodium Chloride Flush 3 ML SYRINGE IVFLUSH ×2 (08:26→14:50)
--- NOTE | 2022-03-22 11:37 | PM.PNNEP ---
Subjective Subjective Date of Service: 03/22/22 Principal diagnosis: atrial tachycardia Interval history: seen and examined on dialysis no complaints Physical Exam Vital Signs: Vital Signs: Last Vital Signs Temp 98.4 F 03/22/22 07:15 Pulse 68 03/22/22 07:15 Resp 16 03/22/22 07:15 BP 132/64 03/22/22 07:15 Pulse Ox 99 03/22/22 07:15 BMI result Body Mass Index 25.2 Const: General: no acute distress HEENT: Head: Yes normocephalic and Yes atraumatic Neck: Neck: Yes supple Resp: Auscultation: diminished lung sounds Cardio: Heart sounds: S1 normal heart sound present and S2 normal heart sound present GI: Palpation (GI): Soft to palpation and nontender Extrem: General: Yes no pedal edema Objective Data Labs CBC & Chem 7: 03/16/22 07:24 03/21/22 09:17 Labs: Laboratory Results - last 24 hr 03/21/22 03/21/22 03/21/22 11:03 16:07 20:37 POC Glucose 174 H 242 H 177 H 03/22/22 07:14 POC Glucose 194 H Microbiology Microbiology Results: Microbiology 03/15/22 16:14 Blood - Venous Blood Culture - Final No growth after 5 days. 03/15/22 15:19 Blood - Venous Blood Culture - Final No growth after 5 days. Procedures Date of Service Date of Service: 03/22/22 Assessment & Plan Assessment and plan (1) ESRD (end stage renal disease): Status: Acute (2) Anemia: Status: Acute Plan usually has HD t-t-s presented with hypotension due to atrial fibrillation with RVR REC HD today volume optimization JEANETTE per protocol renal diet phosphate binders Time Spent With Patient Time: Total time spent is greater than 50% in coordination of care (as documented) at patient's floor/unit and/or counseling patient: Progress Note: Quality Stroke Does the patient have a stroke diagnosis?: No
[2022-03-22 11:49] LABS: Glucose, Whole Blood 246 mg/dL (60-115)
--- NOTE | 2022-03-22 12:52 | MHC.CM.PN ---
Addendum entered by Aurelia Singh 03/22/22 14:11: Covid test result is negative. All discharge info has been sent to the facility via Hand fax(their request). Original Note: Male 66 DX Hypotension He is discharged today. He will return to [facility] via BLS. Family has been notified via .
[2022-03-22 12:56] LABS: COVID-19 Test Negative (Negative)
--- NOTE | 2022-03-22 13:10 | MHC.SLORD ---
Speech Language Pathology Order Status: Attempted to see PT X 3 this a.m. Pt @ Dialysis, unavailable. Per nursing report, pt was having difficulty w/ Ground/Mech diet, Nursing recommended and entered down grade to Puree. CYLINDER VALVE REPAIRER noted in chart that thickened liquids were omitted with this change, adjusted diet orders to reflect: Puree (NDD1) w/ HONEY THICK liquids. Will continue to follow Pt, re-assess when available.
--- NOTE | 2022-03-22 13:15 | PM.DS ---
DS: Providers Provider Date of Service: 03/22/22 Date of admission: 03/15/22 23:18 Primary care physician: Belgica Lantigua MD Consults: 03/15/22 23:23 Consult to Nephrology Routine Consulting Provider: Momo Nvaarrete Reason for consultation: ESRD; hypotension post HD 03/16/22 14:11 Consult to Cardiology Routine Consulting Provider: Jarvis Clark Reason for consultation: new onset AF DS: Diagnosis Discharge Diagnosis (1) ESRD (end stage renal disease): Status: Acute (2) Anemia: Status: Acute DS: Summary Hospital Course Hospital Course: Chief Complaint: Hypotension 66-year-old male with a past medical history of hypertension, hyperlipidemia, diabetes, recent NSTEMI, ESRD on hemodialysis, recent history of acute GI bleed anemia, dementia presented to the hospital with a chief complaint of hypotension post HD. Patient had his regular session of hemodialysis today and post dialysis patient noted to have blood pressure with systolic in 50s; given 500 cc of IV fluids at the dialysis center and subsequently sent him to the ER for further evaluation.? At the time of entry patient is alert and awake, confused-appears to be at baseline; does not seem to be in distress. Patient unable to provide history given his dementia.? Able to talk normally but not pertaining to the history of presenting illness. Patient denies any chest pain or palpitations.? Denies any cough or sputum production.? Review of all other systems is limited ER course: Per ER team patient on presentation noted to be tachycardic-EKG was AFib with RVR with heart rate in 140s.? Patient was given 500 cc of IV fluids.? Patient also received diltiazem 2.5 mg IV x3.? Heart rate improved to low 100s.? Followed by patient was given mild noted.? Lactate was 2.1.? Which she normalized.? The follow-up blood pressure improved.? Admitted to the hospital for further management. Hospital course 66yo M long-term care resident of [facility] with ESRD on HD, recent NSTEMI, recent GI bleed, severe anemia, HTN, HLD, DM2 sent in from HD where he developed hypotension,found to have new-onset pAF/RVR In regard to hypotension patient treated with midodrine, IV fluid and 25% albumin , patient blood pressure improved, currently blood pressure is stable, Isordil has been discontinued, case discussed with Nephrology patient will received 25% albumin with hemodialysis to avoid episodes of hypotension. In regard to atrial fibrillation with RVR patient treated with IV diltiazem in the ED patient converted to normal sinus rhythm but noted to have few bursts of atrial tachycardia therefore placed on metoprolol 50 mg, noted to have no recurrent episodes of atrial tachycardia last 24 hours patient remains in normal sinus rhythm patient is a poor candidate for anticoagulation due to anemia/recent GI bleed without diagnosis of source. Dysphagia patient noted to have dysphagia therefore seen by speech therapy currently tolerating ground solids and honey thick liquids will need continued dysphagia monitoring Anemia of ESRD continue Epogen as per Nephrology ESRD on HD continue Saturday and Saturday hemodialysis CAD, recent STEMI continue beta blockers and low-dose statin noted to have LDL of 52 therefore dose of Lipitor reduced to 40 mg Chronic HFrEF/ ischemic cardiomyopathy continue metoprolol In regard to dementia had no behavioral issues continue risperidone + paroxetine and trazodone DM2? blood sugars stable ,? continue Lantus and bolus insulin Time Spent with Patient Time attestation: Total time spent providing and/or coordinating discharge services: Discharge coordination time: Greater than 30 minutes Quality: Safe Use of Opioids Does Pt have an Active Cancer Diagnosis on the Problem List?: No Quality: Stroke Does the patient have a stroke diagnosis?: No Physical Exam Vital Signs: Vital Signs: Last Vital Signs Temp 98.4 F 03/22/22 07:15 Pulse 68 03/22/22 07:15 Resp 16 03/22/22 07:15 BP 132/64 03/22/22 07:15 Pulse Ox 99 03/22/22 07:15 BMI result Body Mass Index 25.2 Const: Other: Gen: ?awake, alert, no acute distress Neck: supple , no JVD Lungs: clear to auscultation bilaterally Heart: regular, no murmurs Abd: soft, non-tender, non-distended, bowel sounds audible Ext: no edema Skin: warm/well-perfused Neuro: disoriented Psych: impaired insight DS: Data Data Completed and Pending Completed studies during hospitalization [Text1]: Procedures Transfusion of Nonautologous Red Blood Cells into Peripheral Vein, Percutaneous Approach (02/22/22) Labs on day of discharge: Laboratory Results - last 24 hr 03/21/22 03/21/22 03/22/22 16:07 20:37 07:14 POC Glucose 242 H 177 H 194 H COVID-19 ([facility]) COVID-19 Clin Com 03/22/22 03/22/22 11:26 11:58 POC Glucose 246 H COVID-19 ([facility]) Negative COVID-19 Clin Com See Note Discharge Plan Discharge Patient Disposition: [facility] Discharge Diagnosis: Hypotension Atrial fibrillation with RVR Atrial tachycardia Chronic Anemia End-stage renal disease Dysphagia Referrals: Belgica Lantigua MD [Primary Care Provider] - 1 Week Discharge Medications: New metoprolol succinate 50 mg Tablet Extended Release 24 Hr 50 mg PO DAILY Qty: 30 0RF Protocol: Hold for SBP/HR < HOLD for SBP < : 90 HOLD for HR < : 60 atorvastatin 40 mg Tablet 40 mg PO BEDTIME Qty: 30 0RF Continued cholecalciferol (vitamin D3) 50 mcg (2,000 unit) Tablet 50 mcg PO DAILY 0RF trazodone 50 mg Tablet 50 mg PO BEDTIME 0RF risperidone 0.25 mg Tablet 0.25 mg PO BEDTIME 0RF paroxetine HCl [Paxil] 20 mg Tablet 20 mg PO DAILY 0RF bisacodyl [Dulcolax (bisacodyl)] 5 mg tablet,delayed release (DR/EC) 1 tab PO DAILY PRN (Reason: constipation) 0RF insulin lispro [Humalog U-100 Insulin] 100 unit/mL Solution 1 sliding scale dose SUBCUT USEASDIRECTD 0RF Rx Instructions: 200-250: 2 251-300: 4 301-350: 6 351-400: 8 401-450: 10 451-500: 12 lactulose [Enulose] 10 gram/15 mL solution 30 ml PO BID 0RF Lantus Solostar U-100 Insulin 100 unit/mL (3 mL) Insulin Pen 10 unit SUBCUT BEDTIME 0RF sevelamer carbonate [Renvela] 2.4 gram Powder In Packet 2.4 g PO TIDAC 0RF Rx Instructions: must administer with a meal/food omeprazole 40 mg Capsule,Delayed Release(Dr/Ec) 40 mg PO BID@0630,1630 Qty: 30 0RF Discontinued isosorbide dinitrate 10 mg Tablet 10 mg PO TID 0RF Rx Instructions: allow nitrate-free interval of 12-14 hrs per 24-hr period atorvastatin 80 mg Tablet 80 mg PO BEDTIME 0RF Discharge Orders: Discharge Order (Routine); Ordered 03/22/22 Ordered By: Demond Benito Diet: diabetic diet and low fat, low cholesterol Activity on Discharge: As tolerated Stand Alone Forms: Patient Portal Discharge page Care Plan Goals: Hypotension post dialysis , will require albumin with hemodialysis to avoid recurrent hypotension and use of midodrine that can cause tachyarrhythmia, chronic anemia recommend Epogen and close GI follow-up, take metoprolol for atrial fibrillation and atrial tachycardia. Health Concerns: End-stage renal disease/diabetes/anemia/non ST elevation NV continue all medications as prescribed Plan of Treatment: Outpatient follow-up with Nephrology for continued hemodialysis, follow CBC, follow dietary restriction currently tolerating ground and honey thick liquids Assessment: As per discharge summary
[2022-03-22 14:30] VITALS: BP 164/71; PULSE 86; RESP 16; TEMP 37.1; O2SAT 99
[2022-03-22] MEDS: Cholecalciferol (Vitamin D3) 25 MCG TABLET 50 MCG PO (14:44)
[2022-03-22] MEDS: Metoprolol Succinate ER 50 MG TAB.ER.24H PO (14:44)
[2022-03-22] MEDS: PARoxetine HCL 20 MG TABLET PO (14:45)
== END 2022-03-22 16:35 | disposition skilled nursing facility (03) | DRG 201 ==
LOC: HO.ED 21:14 → HO.EDOVER 23:37 → HO.IMC 03-16 15:21
PROVIDERS: Family Medicine; Nurse Practitioner Family; Admitting Provider Hospitalist; Emergency Provider Internal Medicine; PCP Internal Medicine; Visit Provider Hospitalist
DX: I48.91 Unspecified atrial fibrillation (principal); I21.4 Non-ST elevation (NSTEMI) myocardial infarction; I13.2 Hypertensive heart and chronic kidney disease with heart failure and with stage 5 chronic kidney disease, or end stage renal disease; I95.3 Hypotension of hemodialysis; N18.6 End stage renal disease; D63.1 Anemia in chronic kidney disease; E11.22 Type 2 diabetes mellitus with diabetic chronic kidney disease; E78.5 Hyperlipidemia, unspecified; F03.90 Unspecified dementia, unspecified severity, without behavioral disturbance, psychotic disturbance, mood disturbance, and anxiety; R00.1 Bradycardia, unspecified; R13.10 Dysphagia, unspecified; I50.22 Chronic systolic (congestive) heart failure; I25.5 Ischemic cardiomyopathy; Z20.822 Contact with and (suspected) exposure to COVID-19; Z88.0 Allergy status to penicillin; Z99.2 Dependence on renal dialysis; Z79.4 Long term (current) use of insulin; Z79.899 Other long term (current) drug therapy
CPT/HCPCS: 36415; 70450; 71045; 73560; 80048; 80053; 80061; 82947; 83605; 83735; 84443; 85025; 87040; 87635; 90999; 92526; 92610; 93005; 93306; 96361; 96374; 96376; 99285; 99291; J2060; P9047

== ENCOUNTER 2022-05-03 12:35 | Emergency (ER) | payer MEDICAID, SELFPAY ==
--- NOTE | ~2022-05-03 | XR_ITS ---
EXAMINATION: XR CHEST CLINICAL INFORMATION: Chest pain COMPARISON: 03/15/2022 TECHNIQUE: 2 views of the chest were obtained. FINDINGS: Again noted is cardiomegaly. The aorta is calcified. A left innominate vein stent is present. No infiltrates, effusions or lung masses. XR/XR chest 2V IMPRESSION: Cardiomegaly. No acute intrathoracic disease
[2022-05-03 12:44] VITALS: BP 182/77; BP 193/91; PULSE 67; PULSE 70; RESP 14; TEMP 36.5; O2SAT 100; O2SAT 99; BMI 20.2
--- NOTE | 2022-05-03 12:55 | ECG_ITS ---
Test Reason : CHEST PAIN Blood Pressure : / mmHG Vent. Rate : 065 BPM Atrial Rate : 065 BPM P-R Int : 152 ms QRS Dur : 092 ms QT Int : 402 ms P-R-T Axes : 074 014 -04 degrees QTc Int : 418 ms Normal sinus rhythm with sinus arrhythmia Possible Left atrial enlargement Nonspecific T wave abnormality Abnormal ECG When compared with ECG of 17-MAR-2022 03:23, Sinus rhythm has replaced Atrial fibrillation Vent. rate has decreased BY [address] no longer depressed in Anterolateral leads Referred By: Trista Lynch Electronically Signed By:Sherif Nevarez
--- NOTE | 2022-05-03 12:57 | ED_ITS ---
HPI - Chest Pain General Chief Complaint: Chest Pain <Trista LynchAUBREE - Last Filed: 05/03/22 17:26> Stated Complaint: NAUSEA, VOMITING PER EMS <Trista LynchAUBREE - Last Filed: 05/03/22 17:26> Time Seen by Provider: 05/03/22 12:49 <Trista LynchAUBREE - Last Filed: 05/03/22 17:26> Source: patient <Trista Lynch AUBREE - Last Filed: 05/03/22 17:26> Mode of arrival: EMS <Trista LynchAUBREE - Last Filed: 05/03/22 17:26> Limitations: language barrier ( [place] Islander-speaking medical office clerk utilized) <Trista LynchAUBREE - Last Filed: 05/03/22 17:26> History of Present Illness HPI narrative: Patient presents emergency department via EMS coming from dialysis. Patient reports to me that he developed stabbing substernal chest pain when leaving detention facility to go to dialysis. Patient had reported chest pain 1 hour into receiving dialysis treatment. A single dose of nitro was administered at dialysis prior to EMS arrival. Patient at this time denies any chest pain. Denies shortness of breath, nausea, vomiting, or abdominal pain. Patient does have a history of late stage dementia. <Trista LynchAUBREE - Last Filed: 05/03/22 17:26> Related Data Home Medications: Home Medications Medication Instructions Recorded Confirmed bisacodyl 5 mg tablet,delayed 1 tab PO DAILY PRN constipation 02/22/22 03/15/22 release (Dulcolax (bisacodyl)) cholecalciferol (vitamin D3) 50 50 mcg PO DAILY 02/22/22 03/15/22 mcg (2,000 unit) tablet insulin glargine 100 unit/mL (3 10 unit subcut BEDTIME 02/22/22 03/15/22 mL) subcutaneous pen (Lantus Solostar U-100 Insulin) insulin lispro 100 unit/mL 1 sliding scale dose subcut 02/22/22 03/15/22 subcutaneous solution (Humalog USEASDIRECTD U-100 Insulin) lactulose 10 gram/15 mL oral 30 ml PO BID 02/22/22 03/15/22 solution (Enulose) paroxetine HCl 20 mg tablet (Paxil) 20 mg PO DAILY 02/22/22 03/15/22 risperidone 0.25 mg tablet 0.25 mg PO BEDTIME 02/22/22 03/15/22 sevelamer carbonate 2.4 gram oral 2.4 g PO TIDAC 02/22/22 03/15/22 powder packet (Renvela) trazodone 50 mg tablet 50 mg PO BEDTIME 02/22/22 03/15/22 Previous Rx's Medication Instructions Recorded omeprazole 40 mg capsule,delayed 40 mg PO BID@0630,1630 #30 caps 02/26/22 release atorvastatin 40 mg tablet 40 mg PO BEDTIME #30 tabs 03/22/22 metoprolol succinate 50 mg 50 mg PO DAILY #30 tabs 03/22/22 tablet,extended release 24 hr <Trista Lynch CNP - Last Filed: 05/03/22 17:26> Allergies/Adverse Reactions: Allergies Allergy/AdvReac Type Severity Reaction Status Date / Time Penicillins [PCN] Allergy Intermediate ITCHING Verified 03/15/22 15:03 <Trista Lynch CNP - Last Filed: 05/03/22 17:26> Review of Systems Review of Systems: Constitutional : No Chills Cardiovascular : denies Chest Pain or SOB Respiratory : No Cough, Gastrointestinal : no Nausea, No Vomiting, No Diarrhea, No abdominal Pain Genitourinary : reports no urinary output Musculoskeletal : No joint pain, No Myalgias Neuro : No Numbness, No Headache <Trista Lynch CNP - Last Filed: 05/03/22 17:26> Yes all other systems are reviewed and are negative <Trista Lynch CNP - Last Filed: 05/03/22 17:26> [facility]LY [facility] Past Medical History Attestation statement: The following information was validated with the patient. <Trista Lynch CNP - Last Filed: 05/03/22 17:26> Source: old records reviewed <Trista Lynch CNP - Last Filed: 05/03/22 17:26> Medical History: Medical History Atrial fibrillation with rapid ventricular response Dementia ESRD (end stage renal disease) ESRD (end stage renal disease) ESRD (end stage renal disease) on dialysis GI bleed NSTEMI (non-ST elevated myocardial infarction) Other and unspecified hyperlipidemia Type 2 diabetes mellitus with unspecified complications <Trista Lynch CNP - Last Filed: 05/03/22 17:26> Social History Social History: Social History Household Members: None Housing: Unknown / Unable to assess Do you presently have visiting nurse or other home services: No (unknown) Unable to assess alcohol history related to: Unable to respond Alcohol intake: never Patient Tobacco Use Status: Former Tobacco user Advance Directives: No Advance Directives Information Provided: No Advance Directives Date on File: 03/16/22 Current occupational status: disabled <Trista Lynch CNP - Last Filed: 05/03/22 17:26> Physical Exam Vital Signs: Vital Signs: Last Vital Signs Temp 97.9 F 05/03/22 17:14 Pulse 71 05/03/22 17:14 Resp 17 05/03/22 17:14 BP 186/75 H 05/03/22 17:14 Pulse Ox 100 05/03/22 17:14 O2 Del Method 05/03/22 17:14 O2 Flow Rate 3 05/03/22 17:14 BMI result Body Mass Index 20.2 Vital signs have been reviewed as normal and appeared to be correct. Hypertensive.? Heart rate normal.? Respiration rate normal. Temperature normal.? Oxygen saturation normal. <Trista Lynch CNP - Last Filed: 05/03/22 17:26> Vital Signs: Last Vital Signs Temp 97.9 F 05/03/22 17:14 Pulse 71 05/03/22 17:14 Resp 17 05/03/22 17:14 BP 186/75 H 05/03/22 17:14 Pulse Ox 100 05/03/22 17:14 O2 Del Method 05/03/22 17:14 O2 Flow Rate 3 05/03/22 17:14 BMI result Body Mass Index 20.2 <CHETAN Irvin - Last Filed: 05/03/22 18:19> Appearance: Alert.?Oriented to person and place, disoriented to time or event. No acute distress.?Normal affect. Eyes: Pupils equal, round and reactive to light.? ENT: Pharynx normal.?? Neck: Normal inspection.? Neck supple.?? CVS: Heart sounds normal. Normal heart rate and rhythm.? Pulses normal. no JVD. AV fistula to left upper extremity, positive bruit and thrill Respiratory: No respiratory distress.? Lung sounds clear to auscultation ty aterally?? Abdomen: Soft and non-tender. Normoactive bowel sounds. No pulsatile mass.?? Skin: Skin warm and dry.? Normal skin color.? Extremities: No lower extremity edema.? Neuro: Moves all extremities spontaneously. Sensation intact bilaterally. no motor deficits <Trista Lynch CNP - Last Filed: 05/03/22 17:26> Course Course Course Narrative: Patient is a 66-year-old male with a past medical history of atrial fibrillation, anemia, dementia, Parkinson's, CAD, NSTEMI, GIB, end-stage renal disease on dialysis. presenting to the emergency department via EMS today for evaluation of chest pain, reported with sudden onset 1 hour into receiving dialysis treatment, patient received nitro at dialysis without change in pain. At the time of exam declining any chest pain or complaints. Will obtain CBC to evaluate for leukocytosis/ anemia, CMP to evaluate for abnormal electrolytes /abnormal renal function/ abnormal hepatic function, EKG and troponin to evaluate for ischemia/ACS. Chest x-ray to evaluate for consolidation/ infiltrate/ mass/ pulmonary congestion. <Trista Lynch CNP - Last Filed: 05/03/22 17:26> Patient is a 66-year-old male with a past medical history of atrial fibrillation, anemia, dementia, Parkinson's, CAD, NSTEMI, GIB, end-stage renal disease on dialysis. presenting to the emergency department via EMS today for evaluation of chest pain, reported with sudden onset 1 hour into receiving dialysis treatment, patient received nitro at dialysis without change in pain. At the time of exam declining any chest pain or complaints. Will obtain CBC to evaluate for leukocytosis/ anemia, CMP to evaluate for abnormal electrolytes /abnormal renal function/ abnormal hepatic function, EKG and troponin to evaluate for ischemia/ACS. Chest x-ray to evaluate for consolidation/ infiltrate/ mass/ pulmonary congestion. 1817 - Spoke to Dr. Rand, the neurologist consulting actuary. Recommended giving the patient a potassium lowering agent and having the patient attend his normally scheduled dialysis appointment. I explained all test results and exam findings to the patient. Patient verbalized agreement and understanding with this treatment plan and discharge. <CHETAN Irvin - Last Filed: 05/03/22 18:19> Reevaluation(s) Reevaluation #1: Nursing staff having difficulty obtaining IV access and serum labs. Patient getting agitated, pulling arm away and yelling at staff. <Trista Lynch CNP - Last Filed: 05/03/22 17:26> Time: 13:35 <Trista Lynch CNP - Last Filed: 05/03/22 17:26> Reevaluation #2: Patient continuing to refuse labs to be obtained. SNF contacted patient's [facility], who advised that patient's healthcare proxy is his brother, Dani Rosa, , attempted to contact regarding patient, voicemail left to call back. At this time patient appears in no apparent distress is resting on the stretcher, hemodynamically stable. <Trista Lynch CNP - Last Filed: 05/03/22 17:26> Time: 14:26 <Trista Lynch CNP - Last Filed: 05/03/22 17:26> Reevaluation #3: Serum labs obtained at 1449. CBC reveals a macrocytic anemia, hemoglobin 12.6 hematocrit 42.6, no leukocytosis. EKG reveals normal sinus rhythm with arrhythmia, nonspecific T-wave abnormalities including peaked T's in V3, and T- wave inversions in II and III which appear consistent with prior EKG, troponin is elevated 44.9, will require delta troponin. chemistries hemolyzed, attempting re-draw now. <Trista Lynch CNP - Last Filed: 05/03/22 17:26> Time: 16:11 <Trista Lynch CNP - Last Filed: 05/03/22 17:26> Additional Reevaluation(s): 1720: Patient continues to report no active chest pain, no current complaints. Patient signed out to Roxana [facility] pending results of chemistries and repeat troponin. If all are normal, patient to be discharged back to detention [facility] <Trista LynchAUBREE - Last Filed: 05/03/22 17:26> MDM - Chest Pain Medical Records Data Attestation: I reviewed the patient's medical records. <Trista LynchAUBREE - Last Filed: 05/03/22 17:26> Lab Data Attestation: I reviewed the patient's lab results. <Trista LynchAUBREE - Last Filed: 05/03/22 17:26> Result diagrams: : 05/03/22 14:46 05/03/22 17:09 <Trista LynchAUBREE - Last Filed: 05/03/22 17:26> Labs: Lab Results 05/03/22 05/03/22 05/03/22 Range/Units 14:46 14:46 14:46 WBC 8.1 (4.8-10.8) X10*3/uL RBC 4.31 L D (4.60-5.80) X10*6/uL Hgb 12.6 L D (14.0-18.0) g/dl Hct 42.6 D (42.0-52.0) % MCV 98.8 H (80.0-98.0) fL MCH 29.2 (27.0-33.0) pg MCHC 29.6 L (31.0-36.0) g/dl RDW 18.5 H (11.0-16.0) % Plt Count 211 (160-400) X10*3/uL MPV 10.8 (9.4-12.4) fL Immature Gran % (Auto) 0.5 H (0.0-0.4) % Neut % (Auto) 69.0 (45-73) % Lymph % (Auto) 15.1 L (20-40) % [place] % (Auto) 11.7 H (2-11) % Eos % (Auto) 3.2 (0-4) % Baso % (Auto) 0.5 (0-2) % Lymph # (Auto) 1.2 (1.2-4.9) X10*3/uL [place] # (Auto) 1.0 (0.1-1.2) X10*3/uL Eos # (Auto) 0.3 (0.0-0.4) X10*3/uL Baso # (Auto) 0.0 (0.0-0.2) X10*3/uL Abs Immat Gran (auto) 0.04 H (0.00-0.03) X10*3/uL Absolute Neuts (auto) 5.6 (2.0-8.3) x10*3/uL Absolute Nucleated RBC 0.030 H (0.0-0.012) X10*3/uL Nucleated RBC % (auto) 0.4 H (0.0-0.2) /100WBC Sodium (135-145) mmol/L Potassium (3.3-5.1) mmol/L Chloride (96-108) mmol/L Carbon Dioxide (22-29) mmol/L Anion Gap (12-20) BUN (9-16) mg/dL Creatinine (0.5-1.4) mg/dL Estim Creat Clear Calc Estimated GFR Random Glucose (60-115) mg/dL Calcium (8.4-10.2) mg/dL Magnesium (1.6-2.6) mg/dL Total Bilirubin (0.0-1.0) mg/dL AST (5-37) U/L ALT (0-40) U/L Alkaline Phosphatase (39-117) U/L Troponin I High Sens 44.9 H D (<3.5-35.0) ng/L Total Protein (6.5-8.0) g/dL Albumin (3.5-5.0) g/dL COVID-19 (AMANDA) Negative (Negative) COVID-19 Clin Com See Note 05/03/22 05/03/22 Range/Units 17:09 17:09 WBC (4.8-10.8) X10*3/uL RBC (4.60-5.80) X10*6/uL Hgb (14.0-18.0) g/dl Hct (42.0-52.0) % MCV (80.0-98.0) fL MCH (27.0-33.0) pg MCHC (31.0-36.0) g/dl RDW (11.0-16.0) % Plt Count (160-400) X10*3/uL MPV (9.4-12.4) fL Immature Gran % (Auto) (0.0-0.4) % Neut % (Auto) (45-73) % Lymph % (Auto) (20-40) % [place] % (Auto) (2-11) % Eos % (Auto) (0-4) % Baso % (Auto) (0-2) % Lymph # (Auto) (1.2-4.9) X10*3/uL [place] # (Auto) (0.1-1.2) X10*3/uL Eos # (Auto) (0.0-0.4) X10*3/uL Baso # (Auto) (0.0-0.2) X10*3/uL Abs Immat Gran (auto) (0.00-0.03) X10*3/uL Absolute Neuts (auto) (2.0-8.3) x10*3/uL Absolute Nucleated RBC (0.0-0.012) X10*3/uL Nucleated RBC % (auto) (0.0-0.2) /100WBC Sodium 139 (135-145) mmol/L Potassium 5.6 H D (3.3-5.1) mmol/L Chloride 98 (96-108) mmol/L Carbon Dioxide 26 (22-29) mmol/L Anion Gap 21 H (12-20) BUN 59 H (9-16) mg/dL Creatinine 8.84 H* (0.5-1.4) mg/dL Estim Creat Clear Calc 7.0 Estimated GFR 6 Random Glucose 214 H D (60-115) mg/dL Calcium 9.2 (8.4-10.2) mg/dL Magnesium 2.5 (1.6-2.6) mg/dL Total Bilirubin 0.6 (0.0-1.0) mg/dL AST 16 (5-37) U/L ALT 7 (0-40) U/L Alkaline Phosphatase 131 H (39-117) U/L Troponin I High Sens 44.5 H (<3.5-35.0) ng/L Total Protein 7.1 (6.5-8.0) g/dL Albumin 3.6 (3.5-5.0) g/dL COVID-19 (AMANDA) (Negative) COVID-19 Clin Com <Trista Kell Barcome, [employer]PER[employer] - Last Filed: 05/03/22 17:26> Lab Results 05/03/22 05/03/22 05/03/22 Range/Units 14:46 14:46 14:46 WBC 8.1 (4.8-10.8) X10*3/uL RBC 4.31 L D (4.60-5.80) X10*6/uL Hgb 12.6 L D (14.0-18.0) g/dl Hct 42.6 D (42.0-52.0) % MCV 98.8 H (80.0-98.0) fL MCH 29.2 (27.0-33.0) pg MCHC 29.6 L (31.0-36.0) g/dl RDW 18.5 H (11.0-16.0) % Plt Count 211 (160-400) X10*3/uL MPV 10.8 (9.4-12.4) fL Immature Gran % (Auto) 0.5 H (0.0-0.4) % Neut % (Auto) 69.0 (45-73) % Lymph % (Auto) 15.1 L (20-40) % [place] % (Auto) 11.7 H (2-11) % Eos % (Auto) 3.2 (0-4) % Baso % (Auto) 0.5 (0-2) % Lymph # (Auto) 1.2 (1.2-4.9) X10*3/uL [place] # (Auto) 1.0 (0.1-1.2) X10*3/uL Eos # (Auto) 0.3 (0.0-0.4) X10*3/uL Baso # (Auto) 0.0 (0.0-0.2) X10*3/uL Abs Immat Gran (auto) 0.04 H (0.00-0.03) X10*3/uL Absolute Neuts (auto) 5.6 (2.0-8.3) x10*3/uL Absolute Nucleated RBC 0.030 H (0.0-0.012) X10*3/uL Nucleated RBC % (auto) 0.4 H (0.0-0.2) /100WBC Sodium (135-145) mmol/L Potassium (3.3-5.1) mmol/L Chloride (96-108) mmol/L Carbon Dioxide (22-29) mmol/L Anion Gap (12-20) BUN (9-16) mg/dL Creatinine (0.5-1.4) mg/dL Estim Creat Clear Calc Estimated GFR Random Glucose (60-115) mg/dL Calcium (8.4-10.2) mg/dL Magnesium (1.6-2.6) mg/dL Total Bilirubin (0.0-1.0) mg/dL AST (5-37) U/L ALT (0-40) U/L Alkaline Phosphatase (39-117) U/L Troponin I High Sens 44.9 H D (<3.5-35.0) ng/L Total Protein (6.5-8.0) g/dL Albumin (3.5-5.0) g/dL COVID-19 (AMANDA) Negative (Negative) COVID-19 Clin Com See Note 05/03/22 05/03/22 Range/Units 17:09 17:09 WBC (4.8-10.8) X10*3/uL RBC (4.60-5.80) X10*6/uL Hgb (14.0-18.0) g/dl Hct (42.0-52.0) % MCV (80.0-98.0) fL MCH (27.0-33.0) pg MCHC (31.0-36.0) g/dl RDW (11.0-16.0) % Plt Count (160-400) X10*3/uL MPV (9.4-12.4) fL Immature Gran % (Auto) (0.0-0.4) % Neut % (Auto) (45-73) % Lymph % (Auto) (20-40) % [place] % (Auto) (2-11) % Eos % (Auto) (0-4) % Baso % (Auto) (0-2) % Lymph # (Auto) (1.2-4.9) X10*3/uL [place] # (Auto) (0.1-1.2) X10*3/uL Eos # (Auto) (0.0-0.4) X10*3/uL Baso # (Auto) (0.0-0.2) X10*3/uL Abs Immat Gran (auto) (0.00-0.03) X10*3/uL Absolute Neuts (auto) (2.0-8.3) x10*3/uL Absolute Nucleated RBC (0.0-0.012) X10*3/uL Nucleated RBC % (auto) (0.0-0.2) /100WBC Sodium 139 (135-145) mmol/L Potassium 5.6 H D (3.3-5.1) mmol/L Chloride 98 (96-108) mmol/L Carbon Dioxide 26 (22-29) mmol/L Anion Gap 21 H (12-20) BUN 59 H (9-16) mg/dL Creatinine 8.84 H* (0.5-1.4) mg/dL Estim Creat Clear Calc 7.0 Estimated GFR 6 Random Glucose 214 H D (60-115) mg/dL Calcium 9.2 (8.4-10.2) mg/dL Magnesium 2.5 (1.6-2.6) mg/dL Total Bilirubin 0.6 (0.0-1.0) mg/dL AST 16 (5-37) U/L ALT 7 (0-40) U/L Alkaline Phosphatase 131 H (39-117) U/L Troponin I High Sens 44.5 H (<3.5-35.0) ng/L Total Protein 7.1 (6.5-8.0) g/dL Albumin 3.6 (3.5-5.0) g/dL COVID-19 (AMANDA) (Negative) COVID-19 Clin Com <CHETAN Irvin - Last Filed: 05/03/22 18:19> Imaging Data Chest x-ray: Radiologist's impression: XR/XR chest 2V IMPRESSION: Cardiomegaly. No acute intrathoracic disease <Trista Lynch CNP - Last Filed: 05/03/22 17:26> ECG Data ECG #1: Attestation: I personally reviewed and interpreted this ECG as follows: <Trista Lynch CNP - Last Filed: 05/03/22 17:26> ECG interpretation date: 05/03/22 <Trista Lynch CNP - Last Filed: 05/03/22 17:26> Prior ECG tracings: available for review <Trista Lynch CNP - Last Filed: 05/03/22 17:26> Interpretation: Rate: 65 Rhythm:?nsr w arrhythmia [facility]:? normal Normal P waves.? Normal MARIANO.?? Normal QRS complex.?? ST T wave :?? no ST elevation, no ST depression, tall peaked T-waves in V3, T- wave inversions in II and III consistent with prior EKG qTC: 418 prior studies:? February 2022 The study has been interpreted contemporaneously by me. <Trista Lynch CNP - Last Filed: 05/03/22 17:26> Discharge Plan Discharge Clinical Impression: Chest pain, Acute hyperkalemia <Trista Lynch CNP - Last Filed: 05/03/22 17:26> Patient Disposition: [facility] <Trista Lynch CNP - Last Filed: 05/03/22 17:26> Transfer Details: Back to facility he came from. <Trista Lynch CNP - Last Filed: 05/03/22 17:26> Back to facility he came from. <CHETAN Irvin - Last Filed: 05/03/22 18:19> Instructions: Chest Pain (DC) <Trista Lynch CNP - Last Filed: 05/03/22 17:26> Additional Instructions: Follow up with your primary care provider and cardiology consultant. Return to the emergency department immediately if your symptoms worsen or if you develop any dizziness, shortness of breath, difficulty breathing, chest pain, blurry vision, loss of vision, nausea, vomiting, abdominal pain, fever, chills, back pain, or any other complaints. <Trista Lynch CNP - Last Filed: 05/03/22 17:26> Prescriptions: No Action cholecalciferol (vitamin D3) 50 mcg (2,000 unit) Tablet 50 mcg PO DAILY trazodone 50 mg Tablet 50 mg PO BEDTIME risperidone 0.25 mg Tablet 0.25 mg PO BEDTIME paroxetine HCl [Paxil] 20 mg Tablet 20 mg PO DAILY bisacodyl [Dulcolax (bisacodyl)] 5 mg tablet,delayed release (DR/EC) 1 tab PO DAILY PRN (Reason: constipation) insulin lispro [Humalog U-100 Insulin] 100 unit/mL Solution 1 sliding scale dose SUBCUT USEASDIRECTD Rx Instructions: 200-250: 2 251-300: 4 301-350: 6 351-400: 8 401-450: 10 451-500: 12 lactulose [Enulose] 10 gram/15 mL solution 30 ml PO BID Lantus Solostar U-100 Insulin 100 unit/mL (3 mL) Insulin Pen 10 unit SUBCUT BEDTIME sevelamer carbonate [Renvela] 2.4 gram Powder In Packet 2.4 g PO TIDAC Rx Instructions: must administer with a meal/food omeprazole 40 mg Capsule,Delayed Release(Dr/Ec) 40 mg PO BID@0630,1630 Qty: 30 0RF metoprolol succinate 50 mg Tablet Extended Release 24 Hr 50 mg PO DAILY Qty: 30 0RF Protocol: Hold for SBP/HR < HOLD for SBP < : 90 HOLD for HR < : 60 atorvastatin 40 mg Tablet 40 mg PO BEDTIME Qty: 30 0RF <Trista Lynch CNP - Last Filed: 05/03/22 17:26> Referrals: [facility] Family Medicine [Provider Group] (Call to establish and follow up with a primary care provider. If you have a primary care provider, call and follow up with them. ) [facility] Primary Care, [place] [Provider Group] (Call to establish and follow up with a primary care provider. If you have a primary care provider, call and follow up with them. ) [facility] Primary [facility],[place] [Provider Group] (Call to establish and follow up with a primary care provider. If you have a primary care provider, call and follow up with them. ) Ralph Rand MD [Physician] - <Trista Lynch CNP - Last Filed: 05/03/22 17:26> Print Language: Albanian <Trista Lynch CNP - Last Filed: 05/03/22 17:26>
[2022-05-03] MEDS: LORazepam 2 MG/ML VIAL 0.5 MG IM (13:39)
[2022-05-03 14:04] VITALS: BP 171/86; PULSE 74; RESP 16; TEMP 36.6; O2SAT 100
--- NOTE | 2022-05-03 14:32 | PC.NURSE ---
Patient refusing blood work and IV from this RN. Provider aware.
[2022-05-03 14:46] VITALS: BP 167/79; PULSE 66; RESP 16; O2SAT 100
[2022-05-03 14:53] LABS: Basophils Percent Auto 0.5 % (0-2); Eosinophils Absolute Auto 0.3 X10*3/uL (0.0-0.4); Eosinophils Percent Auto 3.2 % (0-4); Hematocrit 42.6 % (42.0-52.0); Hemoglobin 12.6 g/dl (14.0-18.0); Imm Gran Abs Auto 0.04 X10*3/uL (0.00-0.03); Imm Gran Pct Auto 0.5 % (0.0-0.4); Lymphocytes Absolute Auto 1.2 X10*3/uL (1.2-4.9); Lymphocytes Percent Auto 15.1 % (20-40); MANUAL DIFF FLAG NO; Mean Corpuscular HGB Conc 29.6 g/dl (31.0-36.0); Mean Corpuscular Hemoglobin 29.2 pg (27.0-33.0); Mean Corpuscular Volume 98.8 fL (80.0-98.0); Mean Platelet Volume 10.8 fL (9.4-12.4); Monocytes Percent Auto 11.7 % (2-11); NRBC Pct Auto 0.4 /100WBC (0.0-0.2); Neutrophils Absolute Auto 5.6 x10*3/uL (2.0-8.3); Platelet Count 211 X10*3/uL (160-400); Red Blood Count 4.31 X10*6/uL (4.60-5.80); Red Cell Distribution Width 18.5 % (11.0-16.0); White Blood Count 8.1 X10*3/uL (4.8-10.8)
[2022-05-03 15:08] LABS: COVID-19 Test Negative (Negative); IDNOW Serial# 9DB6401D
[2022-05-03 15:13] LABS: Troponin-I High Sensitivity 44.9 ng/L (<3.5-35.0)
[2022-05-03 17:14] VITALS: BP 186/75; PULSE 71; RESP 17; TEMP 36.6; O2SAT 100
--- NOTE | 2022-05-03 17:32 | PC.NURSE ---
provider aware of patients blood pressure
[2022-05-03 17:34] LABS: Alanine Aminotransferase 7 U/L (0-40); Albumin Level 3.6 g/dL (3.5-5.0); Alkaline Phosphatase 131 U/L (39-117); Anion Gap 21 (12-20); Aspartate Amino Transferase 16 U/L (5-37); Bilirubin Total 0.6 mg/dL (0.0-1.0); Blood Urea Nitrogen 59 mg/dL (9-16); Calcium 9.2 mg/dL (8.4-10.2); Carbon Dioxide 26 mmol/L (22-29); Chloride 98 mmol/L (96-108); Estimated Glomerular Filt Rate 6; Glucose Random 214 mg/dL (60-115); Magnesium 2.5 mg/dL (1.6-2.6); Potassium 5.6 mmol/L (3.3-5.1); Sodium 139 mmol/L (135-145); Total Protein 7.1 g/dL (6.5-8.0)
[2022-05-03 17:35] LABS: Troponin-I High Sensitivity 44.5 ng/L (<3.5-35.0)
[2022-05-03] MEDS: Sodium Zirconium Cyclosilicate 10 GM POWD.PACK PO (18:29)
[2022-05-03 18:31] VITALS: BP 183/84; PULSE 76; RESP 13; O2SAT 100
[2022-05-03 21:07] VITALS: BP 160/85; PULSE 76; RESP 17; O2SAT 100
== END 2022-05-03 21:35 | disposition skilled nursing facility (03) ==
PROVIDERS: Nurse Practitioner Family; Emergency Provider Student in an Organized Health Care Education/Training Program
DX: R07.9 Chest pain, unspecified (principal); E87.5 Hyperkalemia; E11.22 Type 2 diabetes mellitus with diabetic chronic kidney disease; I12.0 Hypertensive chronic kidney disease with stage 5 chronic kidney disease or end stage renal disease; N18.6 End stage renal disease; Z99.2 Dependence on renal dialysis; I48.91 Unspecified atrial fibrillation; G31.83 Neurocognitive disorder with Lewy bodies; F02.80 Dementia in other diseases classified elsewhere, unspecified severity, without behavioral disturbance, psychotic disturbance, mood disturbance, and anxiety; Z20.822 Contact with and (suspected) exposure to COVID-19; Z79.4 Long term (current) use of insulin; Z79.01 Long term (current) use of anticoagulants; Z79.02 Long term (current) use of antithrombotics/antiplatelets
CPT/HCPCS: 36415; 71046; 80053; 83735; 84484; 85025; 87635; 93005; 96372; 99284; J2060